=== PATIENT | male | born 1960 | race Caucasian/White ===

== ENCOUNTER 2018-03-26 09:13 | Inpatient (IN) ==
[2018-03-26] MEDS ORDERED: Insulin Regular (For Infusion) 100 UNIT in Sodium Chlor 0.9% Inj 99 ML IV.CONT STA (09:57)
[2018-03-26] MEDS: Sod Chloride 0.9% Inj 1,000 ML IV.SIG SCH ×2 (10:11→12:12)
--- NOTE | 2018-03-26 10:19 | XR ---
EXAM DATE: 03/26/2018 10:12 AM EDT AGE/SEX: 57 years / Male INDICATIONS: Short of breath. CLINICAL DATA: This is the patient's initial encounter. Patient reports that signs and symptoms have been present for 1 day and indicates a pain score of 0/10. MEDICAL/SURGICAL HISTORY: . diabetes, heart attack CABG. stent COMPARISON: No prior exams available for comparison. FINDINGS: A faint subcentimeter nodular density is identified in the left upper lung field overlying the anteri or aspect of the third rib. The lungs are otherwise clear. Median sternotomy wires from prior open heart surgery are noted. Heart and mediastinal contours are o therwise unremarkable. Osseous structures are intact. CONCLUSION: Faint nodular density in the left upper lobe; further evaluation with CT recommended. No evidence of acute cardiopulmonary process. Status post CABG Electronically signed by: Sanjay Posada MD 03/26/2018 10:17 AM EDT
[2018-03-26 10:30] LABS: Baso % (Auto) 0.3 % (0.0-2.0); Hematocrit 38.4 % (39.0-51.0); Hemoglobin 12.6 gm/dL (13.0-17.0); Lymph # (Auto) 1.3 th/mm3 (1.0-4.8); Lymph % (Auto) 7.2 % (9.0-44.0); Mean Corpuscular HGB Conc 32.7 % (32.0-36.0); Mean Corpuscular Hemoglobin 27.9 pg (27.0-34.0); Mean Corpuscular Volume 85.5 fL (80.0-100.0); Mean Platelet Volume 9.2 fL (7.0-11.0); Mono # (Auto) 0.7 th/mm3 (0.0-0.9); Neut # (Auto) 15.9 th/mm3 (1.8-7.7); Neut % (Auto) 88.5 % (16.0-70.0); Platelet Count 393 th/mm3 (150-450); Red Blood Count 4.49 mil/mm3 (4.50-5.90); Red Cell Distribution Width 13.8 % (11.6-17.2); White Blood Count 17.9 th/mm3 (4.0-11.0)
[2018-03-26 10:37] LABS: ABG Base Excess 6.6 mmol/L (-2-2); ABG PCO2 51 mmHg (38-42); ABG PO2 79 mmHg (61-120)
[2018-03-26 10:49] LABS: Alanine Aminotransferase 15 U/L (12-78); Albumin 2.4 g/dL (3.4-5.0); Anion Gap 10 meq/L (5-15); Aspartate Aminotransferase 7 U/L (15-37); Blood Urea Nitrogen 45 mg/dL (7-18); Calcium 9.2 mg/dL (8.5-10.1); Carbon Dioxide 33.9 meq/L (21.0-32.0); Chloride 94 meq/L (98-107); Glomerular Filtration Rate 23 mL/min (>89); Lipase 484 U/L (73-393); Magnesium 2.2 mg/dL (1.5-2.5); Potassium 3.3 meq/L (3.5-5.1); Sodium 138 meq/L (136-145)
[2018-03-26 10:51] LABS: Alkaline Phosphatase 247 U/L (45-117); Total Protein 8.9 g/dL (6.4-8.2)
[2018-03-26 11:01] LABS: Glucose,Random 843 mg/dL (74-106)
--- NOTE | 2018-03-26 11:31 | ECG ---
Date Performed: 03/26/2018 Time Performed: 09:55:39 PTAGE: 57 years EKG: Sinus rhythm WITH SHORT DE INTERVAL MODERATE T-WAVE ABNORMALITY, CONSIDER ANTEROLATERAL ISCHEMIA MODERATE T-WAVE ABNORMALITY, CONSIDER INFERIOR ISCHEMIA ABNORMAL ECG INTERPRETATION BASED ON A DEFAULT AGE OF 40 YEAR S NO PREVIOUS TRACING DOCTOR: Sudheer Honeycutt Interpretating Date/Time 03/26/2018 11:30:45
--- NOTE | 2018-03-26 11:39 | CT ---
EXAM DATE: 03/26/2018 11:30 AM EDT AGE/SEX: 57 years / Male INDICATIONS: Chest pain, weakness for 3 days CLINICAL DATA: This is the patient's initial encounter. Patient reports that signs and symptoms have been present for 3 days and indicates a pain score of 8/10. MEDICAL/SURGICAL HISTORY: Diabetes. Hypertension. CABG. RADIATION DOSE: 5.10 CTDI (mGy) COMPARISON: [facility], CHEST 1V SINGLE AP, 03/26/2018. . TECHNIQUE: Multiple contiguous axial images were obtained through the chest without contrast. Image s were obtained in suspended respiration using multiple row detector helical technique. Using automa hernan exposure control and adjustment of the mA and/or kV according to patient size, radiation dose was kept as low as reasonably achievable to obtain optimal diagnostic quality images. DICOM format imag e data is available electronically for review and comparison. FINDINGS: There is mediastinal adenopathy identified in the AP window measuring up to 2.2 cm, and 1.2 cm in marissa rt axis dimension. 2.1 cm hypodense mass in the tracheoesophageal region on axial image 15 superior m ediastinum. Extensive coronary artery calcification is identified. No pleural or pericardial effusion s are seen. Review of bone windows demonstrate mild paraseptal emphysematous changes. Corresponding t o the plain radiographic findings, there is a spiculated mass in the left upper lobe laterally abutti ng the pleura measuring 2.4 x 1.8 cm in AP transverse dimension. The osseous structures are intact. CONCLUSION: 1. Spiculated left upper lobe mass accounts for the density noted on the recent chest x-ray. This is concerning for primary bronchogenic neoplasm until proven otherwise. Associated mediastinal adenopat hy is identified and concerning for metastatic disease. 2. Emphysema. 3. Extensive atherosclerosis. Electronically signed by: Ammon Decker MD 03/26/2018 11:38 AM EDT
--- NOTE | 2018-03-26 12:03 | P.HPFP ---
History of Present Illness Primary Care Physician: UNKNOWN History of Present Illness: Was not taking medications. Was not taking insulin for 5 days. Ran out of meds. Difficult historia. Weak, lives with sister. Chronic wounds on feet. Changes dressings every other day Home health to change bilater foot wounds. No abx. Just moved here Past medical history: Type 1 since 41 [place], wheel chair bound Past surgical history: Allergies: Medications: Family history: Social history: Code status: [facility] - History History Provided By: Patient, Family Member - Medical History Medical History: Medical History (Last Updated 03/26/18 @ 09:40 by Bridgette Carvalho) Diabetes Guillain Pickard syndrome High cholesterol Hypertension - Surgical History Surgical History: Surgical History (Last Updated 03/26/18 @ 10:05 by Bridgette Carvalho) Hx of CABG - Tobacco History Second Hand Smoke Exposure: Yes Tobacco Use In Past 30 Days: Yes Smoking Status: Current every day smoker Tobacco Type: Cigarettes - Alcohol History How Often Do You Have a Drink Containing Alcohol: Never - Substance Use History Substance History: No History of Abuse - Travel History Recent Travel in the [place] Within the Last 8 Weeks: No Recent Travel Out of the Country Within the Last 8 Weeks: No - Immunization History Tetanus Immunization: <5 Years Medications and Allergies Active Medications: Active Medications Insulin Human Regular 100 unit (/ Sodium Chloride) 100 mls @ 6 mls/hr IV.CONT TITRATE STA; Protocol Stop: 03/27/18 02:36 Last Admin: 03/26/18 10:55 Dose: 6 units/hr, 6 mls/hr Allergies Allergy/AdvReac Type Severity Reaction Status Date / Time No Known Allergies Allergy Verified 03/26/18 10:05 Home Medications Medication Instructions Recorded Confirmed Type insulin lispro [Humalog U-100 20 unit SUB-Q QAM 03/26/18 03/26/18 History Insulin] lisinopril 20 mg PO DAILY 03/26/18 03/26/18 History metoprolol tartrate [Lopressor] 50 mg PO BID 03/26/18 History morphine 4 mg PO DAILY 03/26/18 03/26/18 History Exam Vital signs: Vital Signs 03/26/18 09:18 Temperature 97.9 F Pulse Rate 93 H Respiratory Rate 18 Blood Pressure 101/58 L Pulse Oximetry 96 Intake & Output 03/25/18 03/26/18 03/26/18 18:59 06:59 18:59 Intake Total 1000 / 1000 Balance 1000 / 1000 Weight 63.503 kg Intake: IV 1000 / 1000 NS Inj 1,000 ML @ 1000 mls/hr 1000 / 1000 IV.SIG .Q1H NGOZI Rx#:[id number] Results - Labs Result diagrams: 03/26/18 10:15 03/26/18 10:15 Abnormal lab results 03/26/18 03/26/18 03/26/18 Range/Units 09:44 09:57 10:15 WBC 17.9 H (4.0-11.0) th/mm3 RBC 4.49 L (4.50-5.90) mil/mm3 Hgb 12.6 L (13.0-17.0) gm/dL Hct 38.4 L (39.0-51.0) % Neut % (Auto) 88.5 H (16.0-70.0) % Lymph % (Auto) 7.2 L (9.0-44.0) % Neut # (Auto) 15.9 H (1.8-7.7) th/mm3 ABG pCO2 (38-42) mmHg ABG HCO3 (22-26) mmol/L ABG Base Excess (-2-2) mmol/L Hemoglobin (12.0-16.0) G/DL Potassium (3.5-5.1) meq/L Chloride (98-107) meq/L Carbon Dioxide (21.0-32.0) meq/L BUN (7-18) mg/dL Creatinine (0.60-1.30) mg/dL Estimated GFR (>89) mL/min POC Glucose Greater than 600 H* Greater than 600 H* (68-110) mg/dl Random Glucose (74-106) mg/dL AST (15-37) U/L Alkaline Phosphatase (45-117) U/L Total Protein (6.4-8.2) g/dL Albumin (3.4-5.0) g/dL Lipase (73-393) U/L Beta-Hydroxybutyric Acd (0.00-0.39) mmol/L 03/26/18 03/26/18 Range/Units 10:15 10:32 WBC (4.0-11.0) th/mm3 RBC (4.50-5.90) mil/mm3 Hgb (13.0-17.0) gm/dL Hct (39.0-51.0) % Neut % (Auto) (16.0-70.0) % Lymph % (Auto) (9.0-44.0) % Neut # (Auto) (1.8-7.7) th/mm3 ABG pCO2 51 H* (38-42) mmHg ABG HCO3 31 H (22-26) mmol/L ABG Base Excess 6.6 H (-2-2) mmol/L Hemoglobin 10.7 L (12.0-16.0) G/DL Potassium 3.3 L (3.5-5.1) meq/L Chloride 94 L (98-107) meq/L Carbon Dioxide 33.9 H (21.0-32.0) meq/L BUN 45 H (7-18) mg/dL Creatinine 2.90 H (0.60-1.30) mg/dL Estimated GFR 23 L (>89) mL/min POC Glucose (68-110) mg/dl Random Glucose 843 H* (74-106) mg/dL AST 7 L (15-37) U/L Alkaline Phosphatase 247 H (45-117) U/L Total Protein 8.9 H (6.4-8.2) g/dL Albumin 2.4 L (3.4-5.0) g/dL Lipase 484 H (73-393) U/L Beta-Hydroxybutyric Acd 0.70 H (0.00-0.39) mmol/L Short CBC 03/26/18 Range/Units 10:15 WBC 17.9 H (4.0-11.0) th/mm3 Hgb 12.6 L (13.0-17.0) gm/dL Hct 38.4 L (39.0-51.0) % Plt Count 393 (150-450) th/mm3 BMP 03/26/18 10:15 Sodium 138 Potassium 3.3 L Chloride 94 L Carbon Dioxide 33.9 H BUN 45 H Creatinine 2.90 H Calcium 9.2 Liver Function 03/26/18 Range/Units 10:15 Total Bilirubin 0.3 (0.2-1.0) mg/dL AST 7 L (15-37) U/L ALT 15 (12-78) U/L Alkaline Phosphatase 247 H (45-117) U/L Albumin 2.4 L (3.4-5.0) g/dL - Imaging Impressions Chest X-Ray 03/26/18 09:57 CONCLUSION: Faint nodular density in the left upper lobe; further evaluation with CT recommended. No evidence of acute cardiopulmonary process. Status post CABG Chest CT 03/26/18 10:59 CONCLUSION: 1. Spiculated left upper lobe mass accounts for the density noted on the recent chest x-ray. This is concerning for primary bronchogenic neoplasm until proven otherwise. Associated mediastinal adenopathy is identified and concerning for metastatic disease. 2. Emphysema. 3. Extensive atherosclerosis. Caprini VTE Risk Assessment Caprini Risk Assessment Model: Point Value = 1 Point Value = 2 Point Value = 3 Point Value = 5 Age 41-60 Minor surgery BMI > 25 kg/m2 Swollen legs Varicose veins or History of unexplained or recurrent spontaneous Oral contraceptives or hormone replacement Sepsis (< 1 month) Serious lung disease, including pneumonia (< 1 month) Abnormal pulmonary function Acute myocardial infarction Congestive heart failure (< 1 month) History of inflammatory bowel disease Medical patient at bed rest Age 61-74 Arthroscopic surgery Major open surgery (> 45 min) Laparoscopic surgery (> 45 min) Malignancy Confined to bed (> 72 hours) Immobilizing plaster cast Central venous access Age >= 75 History of VTE Family history of VTE Factor V Leiden Prothrombin 10519L Lupus anticoagulant Anticardiolipin antibodies Elevated serum homocysteine Heparin-induced thrombocytopenia Other congenital or acquired thrombophilia Stroke (< 1 month) Elective arthroplasty Hip, pelvis, or leg fracture Acute spinal cord injury (< 1 month) Prophylaxis Regimen: Total Risk Factor Score Risk Level Prophylaxis Regimen 0-1 Low Early ambulation 2 Moderate Order ONE of the following: *Sequential Compression Device (SCD) *Heparin 5000 units SQ BID 3-4 Higher Order ONE of the following medications: *Heparin 5000 units SQ TID *Enoxaparin/Lovenox 40 mg SQ daily (WT < 150 kg, CrCl > 30 mL/min) *Enoxaparin/Lovenox 30 mg SQ daily (WT < 150 kg, CrCl > 10-29 mL/min) *Enoxaparin/Lovenox 30 mg SQ BID (WT < 150 kg, CrCl > 30 mL/min) AND/OR *Sequential Compression Device (SCD) 5 or more Highest Order ONE of the following medications: *Heparin 5000 units SQ TID (Preferred with Epidurals) *Enoxaparin/Lovenox 40 mg SQ daily (WT < 150 kg, CrCl > 30 mL/min) *Enoxaparin/Lovenox 30 mg SQ daily (WT < 150 kg, CrCl > 10-29 mL/min) *Enoxaparin/Lovenox 30 mg SQ BID (WT < 150 kg, CrCl > 30 mL/min) AND *Sequential Compression Device (SCD)
--- NOTE | 2018-03-26 12:25 | ED ---
HPI General Chief complaint: Neuro Symptoms/Deficit Stated complaint: Med clearance Time Seen by Provider: 03/26/18 09:36 History of Present Illness HPI narrative: 57 male here for evaluation of generalized weakness last 5 days. Patient has insulin-dependent diabetes, has not been compliant with his medication for the last 5 days. Patient has no nausea or vomiting or abdominal pain. Denies any alcohol use, reports smoking 1 pack a day for the last 42 years, he has no fever chills or night sweats. He had DKA year ago due to insulin noncompliance as well. Related Data Home Medications Medication Instructions Recorded Confirmed atorvastatin 20 mg PO HS 03/26/18 03/26/18 lisinopril 10 mg PO DAILY 03/26/18 03/26/18 metoprolol tartrate [Lopressor] 25 mg PO DAILY 03/26/18 03/26/18 morphine 15 mg PO DAILY 03/26/18 03/26/18 Previous Rx's Medication Instructions Recorded insulin NPH isoph U-100 human 15 units SUB-Q BID@0800,1700 30 03/29/18 [Novolin N NPH U-100 Insulin] Days ml Allergies Allergy/AdvReac Type Severity Reaction Status Date / Time sodium bicarbonate AdvReac Vomiting Verified 03/26/18 13:39 Review of Systems ROS: all other systems reviewed are negative [facility] Family History Family History Other Osteoarthritis Social History Social History Substance History: No History of Abuse Second Hand Smoke Exposure: Yes Smoking Status: Current every day smoker Tobacco Type: Cigarettes How Often Do You Have a Drink Containing Alcohol: Never Immunization History Tetanus Immunization: <5 Years Exam Narrative Exam Narrative: GENERAL: Alert oriented 3 no acute distress. SKIN: Focused skin assessment warm/dry. HEAD: Atraumatic. Normocephalic. EYES: Pupils equal and round. No scleral icterus. No injection or drainage. ENT: No nasal bleeding or discharge. Mucous membranes pink and moist. NECK: Trachea midline. No JVD. CARDIOVASCULAR: Regular rate and rhythm. No murmur appreciated. RESPIRATORY: No accessory muscle use. Clear to auscultation. Breath sounds equal bilaterally. GASTROINTESTINAL: Abdomen soft, non-tender, nondistended. Hepatic and splenic margins not palpable. MUSCULOSKELETAL: No obvious deformities. No clubbing. No cyanosis. No edema. NEUROLOGICAL: Awake and alert. No obvious cranial nerve deficits. Motor grossly within normal limits. Normal speech. PSYCHIATRIC: Appropriate mood and affect; insight and judgment normal. Course Initial Documented Vital Signs Temperature 97.9 F 03/26/18 09:18 Pulse Rate 93 H 03/26/18 09:18 Respiratory Rate 18 03/26/18 09:18 Blood Pressure 101/58 L 03/26/18 09:18 Pulse Oximetry 96 03/26/18 09:18 Last Documented Vital Signs Temperature 98.4 F 03/29/18 16:00 Pulse Rate 87 03/29/18 16:00 Respiratory Rate 20 03/29/18 16:00 Blood Pressure 109/54 L 03/29/18 16:00 Pulse Oximetry 99 03/29/18 16:00 Critical Care Time Critical Care Time: Yes Total Critical Care Time: 35 Attestation: DKA versus HHS, metabolic alkalosis with respiratory acidosis, aggressive IV hydration with insulin drip. Medical Decision Making MDM Narrative Medical decision making narrative: 57 male here for evaluation of generalized weakness. He has hyperglycemia, metabolic alkalosis, respiratory acidosis. He has history of Guillain [place], he could be having restrictive respiratory acidosis is compensated with metabolic alkalosis, patient was started with IV hydration and insulin drip will be admitted to ICU for further evaluation. He has a CT chest that shows lung nodule questionable bronchogenic carcinoma. Medical Screen Exam Complete: Yes Emergency Medical Condition: Yes Lab Data Result diagrams: 03/29/18 06:46 03/29/18 06:46 Lab Results 03/26/18 03/26/18 03/26/18 Range/Units 09:44 09:57 10:15 WBC 17.9 H (4.0-11.0) th/mm3 RBC 4.49 L (4.50-5.90) mil/mm3 Hgb 12.6 L (13.0-17.0) gm/dL Hct 38.4 L (39.0-51.0) % MCV 85.5 (80.0-100.0) fL MCH 27.9 (27.0-34.0) pg MCHC 32.7 (32.0-36.0) % RDW 13.8 (11.6-17.2) % Plt Count 393 (150-450) th/mm3 MPV 9.2 (7.0-11.0) fL Neut % (Auto) 88.5 H (16.0-70.0) % Lymph % (Auto) 7.2 L (9.0-44.0) % [place] % (Auto) 4.0 (0.0-8.0) % Eos % (Auto) 0.0 (0.0-4.0) % Baso % (Auto) 0.3 (0.0-2.0) % Neut # (Auto) 15.9 H (1.8-7.7) th/mm3 Lymph # (Auto) 1.3 (1.0-4.8) th/mm3 [place] # (Auto) 0.7 (0.0-0.9) th/mm3 Eos # (Auto) 0.0 (0.0-0.4) th/mm3 Baso # (Auto) 0.0 (0.0-0.2) th/mm3 WBC Differential . Differential Comment Auto diff final PT (9.8-11.6) sec INR Ratio APTT (24.3-30.1) sec Puncture Site Patient Temperature O2 Saturation (90-100) % ABG pH (7.380-7.420) ABG pCO2 (38-42) mmHg ABG pO2 (61-120) mmHg ABG HCO3 (22-26) mmol/L ABG O2 Content (12.0-20.0) Vol % ABG Base Excess (-2-2) mmol/L ABG Methemoglobin (0-2) % Hosea Test Hemoglobin (12.0-16.0) G/DL Carboxyhemoglobin (0-4) % O2 Delivery Device Inspired O2 % Critical Value Sodium (136-145) meq/L Potassium (3.5-5.1) meq/L Chloride (98-107) meq/L Carbon Dioxide (21.0-32.0) meq/L Anion Gap (5-15) meq/L BUN (7-18) mg/dL Creatinine (0.60-1.30) mg/dL Estimated GFR (>89) mL/min POC Glucose Greater than 600 H* Greater than 600 H* (68-110) mg/dl Random Glucose (74-106) mg/dL Hemoglobin A1c (4.3-6.0) % Calcium (8.5-10.1) mg/dL Prot Corrected Calcium (8.5-10.1) mg/dL Magnesium (1.5-2.5) mg/dL Total Bilirubin (0.2-1.0) mg/dL AST (15-37) U/L ALT (12-78) U/L Alkaline Phosphatase (45-117) U/L Troponin I (0.02-0.05) ng/mL Total Protein (6.4-8.2) g/dL Albumin (3.4-5.0) g/dL Lipase (73-393) U/L Beta-Hydroxybutyric Acd (0.00-0.39) mmol/L Urine Color (Yellw/Straw) Urine Clarity (Clear) Urine pH (5.0-8.5) Ur Specific [place] (1.002-1.035) Urine Protein (Neg-Trace) mg/dL Urine Glucose (UA) (Negative) mg/dL Urine Ketones (Negative) mg/dL Urine Occult Blood (Negative) Urine Nitrate (Negative) Urine Bilirubin (Negative) Urine Urobilinogen (Less than 2) mg/dL Ur Leukocyte Esterase (Negative) Urine RBC (0-3) /hpf Urine WBC (0-5) /hpf Urine WBC Clumps (None) Ur Squamous Epith Cells (0-5) /hpf Urine Bacteria (None) /hpf Urine Yeast (None) /hpf Micro UA Comment Ur Microscopic Review Urine Culture Comments Nasal Screen MRSA (PCR) (Negative) 03/26/18 03/26/18 03/26/18 Range/Units 10:15 10:15 10:32 WBC (4.0-11.0) th/mm3 RBC (4.50-5.90) mil/mm3 Hgb (13.0-17.0) gm/dL Hct (39.0-51.0) % MCV (80.0-100.0) fL MCH (27.0-34.0) pg MCHC (32.0-36.0) % RDW (11.6-17.2) % Plt Count (150-450) th/mm3 MPV (7.0-11.0) fL Neut % (Auto) (16.0-70.0) % Lymph % (Auto) (9.0-44.0) % [place] % (Auto) (0.0-8.0) % Eos % (Auto) (0.0-4.0) % Baso % (Auto) (0.0-2.0) % Neut # (Auto) (1.8-7.7) th/mm3 Lymph # (Auto) (1.0-4.8) th/mm3 [place] # (Auto) (0.0-0.9) th/mm3 Eos # (Auto) (0.0-0.4) th/mm3 Baso # (Auto) (0.0-0.2) th/mm3 WBC Differential Differential Comment PT (9.8-11.6) sec INR Ratio APTT (24.3-30.1) sec Puncture Site Left brachial Patient Temperature 98.6 O2 Saturation 92 (90-100) % ABG pH 7.41 (7.380-7.420) ABG pCO2 51 H* (38-42) mmHg ABG pO2 79 (61-120) mmHg ABG HCO3 31 H (22-26) mmol/L ABG O2 Content 14.0 (12.0-20.0) Vol % ABG Base Excess 6.6 H (-2-2) mmol/L ABG Methemoglobin 1.3 (0-2) % Hosea Test Y Hemoglobin 10.7 L (12.0-16.0) G/DL Carboxyhemoglobin 2.0 (0-4) % O2 Delivery Device Room air Inspired O2 21 % Critical Value Yes Sodium 138 (136-145) meq/L Potassium 3.3 L (3.5-5.1) meq/L Chloride 94 L (98-107) meq/L Carbon Dioxide 33.9 H (21.0-32.0) meq/L Anion Gap 10 (5-15) meq/L BUN 45 H (7-18) mg/dL Creatinine 2.90 H (0.60-1.30) mg/dL Estimated GFR 23 L (>89) mL/min POC Glucose (68-110) mg/dl Random Glucose 843 H* (74-106) mg/dL Hemoglobin A1c 12.2 H (4.3-6.0) % Calcium 9.2 (8.5-10.1) mg/dL Prot Corrected Calcium (8.5-10.1) mg/dL Magnesium 2.2 (1.5-2.5) mg/dL Total Bilirubin 0.3 (0.2-1.0) mg/dL AST 7 L (15-37) U/L ALT 15 (12-78) U/L Alkaline Phosphatase 247 H (45-117) U/L Troponin I (0.02-0.05) ng/mL Total Protein 8.9 H (6.4-8.2) g/dL Albumin 2.4 L (3.4-5.0) g/dL Lipase 484 H (73-393) U/L Beta-Hydroxybutyric Acd 0.70 H (0.00-0.39) mmol/L Urine Color (Yellw/Straw) Urine Clarity (Clear) Urine pH (5.0-8.5) Ur Specific [place] (1.002-1.035) Urine Protein (Neg-Trace) mg/dL Urine Glucose (UA) (Negative) mg/dL Urine Ketones (Negative) mg/dL Urine Occult Blood (Negative) Urine Nitrate (Negative) Urine Bilirubin (Negative) Urine Urobilinogen (Less than 2) mg/dL Ur Leukocyte Esterase (Negative) Urine RBC (0-3) /hpf Urine WBC (0-5) /hpf Urine WBC Clumps (None) Ur Squamous Epith Cells (0-5) /hpf Urine Bacteria (None) /hpf Urine Yeast (None) /hpf Micro UA Comment Ur Microscopic Review Urine Culture Comments Nasal Screen MRSA (PCR) (Negative) 03/26/18 03/26/18 03/26/18 Range/Units 10:50 12:08 13:49 WBC (4.0-11.0) th/mm3 RBC (4.50-5.90) mil/mm3 Hgb (13.0-17.0) gm/dL Hct (39.0-51.0) % MCV (80.0-100.0) fL MCH (27.0-34.0) pg MCHC (32.0-36.0) % RDW (11.6-17.2) % Plt Count (150-450) th/mm3 MPV (7.0-11.0) fL Neut % (Auto) (16.0-70.0) % Lymph % (Auto) (9.0-44.0) % [place] % (Auto) (0.0-8.0) % Eos % (Auto) (0.0-4.0) % Baso % (Auto) (0.0-2.0) % Neut # (Auto) (1.8-7.7) th/mm3 Lymph # (Auto) (1.0-4.8) th/mm3 [place] # (Auto) (0.0-0.9) th/mm3 Eos # (Auto) (0.0-0.4) th/mm3 Baso # (Auto) (0.0-0.2) th/mm3 WBC Differential Differential Comment PT (9.8-11.6) sec INR Ratio APTT (24.3-30.1) sec Puncture Site Patient Temperature O2 Saturation (90-100) % ABG pH (7.380-7.420) ABG pCO2 (38-42) mmHg ABG pO2 (61-120) mmHg ABG HCO3 (22-26) mmol/L ABG O2 Content (12.0-20.0) Vol % ABG Base Excess (-2-2) mmol/L ABG Methemoglobin (0-2) % [place]a Test Hemoglobin (12.0-16.0) G/DL Carboxyhemoglobin (0-4) % O2 Delivery Device Inspired O2 % Critical Value Sodium 148 H D (136-145) meq/L Potassium 2.6 L* (3.5-5.1) meq/L Chloride 105 D (98-107) meq/L Carbon Dioxide 36.5 H (21.0-32.0) meq/L Anion Gap 7 (5-15) meq/L BUN 42 H (7-18) mg/dL Creatinine 2.63 H (0.60-1.30) mg/dL Estimated GFR 25 L (>89) mL/min POC Glucose Greater than 600 H* (68-110) mg/dl Random Glucose 440 H D (74-106) mg/dL Hemoglobin A1c (4.3-6.0) % Calcium 9.0 (8.5-10.1) mg/dL Prot Corrected Calcium (8.5-10.1) mg/dL Magnesium (1.5-2.5) mg/dL Total Bilirubin (0.2-1.0) mg/dL AST (15-37) U/L ALT (12-78) U/L Alkaline Phosphatase (45-117) U/L Troponin I Less than 0.02 L (0.02-0.05) ng/mL Total Protein (6.4-8.2) g/dL Albumin (3.4-5.0) g/dL Lipase (73-393) U/L Beta-Hydroxybutyric Acd (0.00-0.39) mmol/L Urine Color Yellow (Yellw/Straw) Urine Clarity Cloudy H (Clear) Urine pH 5.0 (5.0-8.5) Ur Specific [place] 1.021 (1.002-1.035) Urine Protein 100 H (Neg-Trace) mg/dL Urine Glucose (UA) 500 or greater (Negative) mg/dL Urine Ketones Negative (Negative) mg/dL Urine Occult Blood Moderate H (Negative) Urine Nitrate Negative (Negative) Urine Bilirubin Negative (Negative) Urine Urobilinogen Less than 2 (Less than 2) mg/dL Ur Leukocyte Esterase Large H (Negative) Urine RBC 9 H (0-3) /hpf Urine WBC (0-5) /hpf Urine WBC Clumps Many H (None) Ur Squamous Epith Cells 1 (0-5) /hpf Urine Bacteria Many H (None) /hpf Urine Yeast Few H (None) /hpf Micro UA Comment Culture indicated Ur Microscopic Review Not Reportable Urine Culture Comments Culture indicated Nasal Screen MRSA (PCR) (Negative) 03/26/18 03/26/18 03/26/18 Range/Units 16:25 18:30 18:39 WBC (4.0-11.0) th/mm3 RBC (4.50-5.90) mil/mm3 Hgb (13.0-17.0) gm/dL Hct (39.0-51.0) % MCV (80.0-100.0) fL MCH (27.0-34.0) pg MCHC (32.0-36.0) % RDW (11.6-17.2) % Plt Count (150-450) th/mm3 MPV (7.0-11.0) fL Neut % (Auto) (16.0-70.0) % Lymph % (Auto) (9.0-44.0) % [place] % (Auto) (0.0-8.0) % Eos % (Auto) (0.0-4.0) % Baso % (Auto) (0.0-2.0) % Neut # (Auto) (1.8-7.7) th/mm3 Lymph # (Auto) (1.0-4.8) th/mm3 [place] # (Auto) (0.0-0.9) th/mm3 Eos # (Auto) (0.0-0.4) th/mm3 Baso # (Auto) (0.0-0.2) th/mm3 WBC Differential Differential Comment PT (9.8-11.6) sec INR Ratio APTT (24.3-30.1) sec Puncture Site Patient Temperature O2 Saturation (90-100) % ABG pH (7.380-7.420) ABG pCO2 (38-42) mmHg ABG pO2 (61-120) mmHg ABG HCO3 (22-26) mmol/L ABG O2 Content (12.0-20.0) Vol % ABG Base Excess (-2-2) mmol/L ABG Methemoglobin (0-2) % [place]a Test Hemoglobin (12.0-16.0) G/DL Carboxyhemoglobin (0-4) % O2 Delivery Device Inspired O2 % Critical Value Sodium (136-145) meq/L Potassium (3.5-5.1) meq/L Chloride (98-107) meq/L Carbon Dioxide (21.0-32.0) meq/L Anion Gap (5-15) meq/L BUN (7-18) mg/dL Creatinine (0.60-1.30) mg/dL Estimated GFR (>89) mL/min POC Glucose 309 H 62 L (68-110) mg/dl Random Glucose (74-106) mg/dL Hemoglobin A1c (4.3-6.0) % Calcium (8.5-10.1) mg/dL Prot Corrected Calcium (8.5-10.1) mg/dL Magnesium (1.5-2.5) mg/dL Total Bilirubin (0.2-1.0) mg/dL AST (15-37) U/L ALT (12-78) U/L Alkaline Phosphatase (45-117) U/L Troponin I (0.02-0.05) ng/mL Total Protein (6.4-8.2) g/dL Albumin (3.4-5.0) g/dL Lipase (73-393) U/L Beta-Hydroxybutyric Acd (0.00-0.39) mmol/L Urine Color (Yellw/Straw) Urine Clarity (Clear) Urine pH (5.0-8.5) Ur Specific [place] (1.002-1.035) Urine Protein (Neg-Trace) mg/dL Urine Glucose (UA) (Negative) mg/dL Urine Ketones (Negative) mg/dL Urine Occult Blood (Negative) Urine Nitrate (Negative) Urine Bilirubin (Negative) Urine Urobilinogen (Less than 2) mg/dL Ur Leukocyte Esterase (Negative) Urine RBC (0-3) /hpf Urine WBC (0-5) /hpf Urine WBC Clumps (None) Ur Squamous Epith Cells (0-5) /hpf Urine Bacteria (None) /hpf Urine Yeast (None) /hpf Micro UA Comment Ur Microscopic Review Urine Culture Comments Nasal Screen MRSA (PCR) Mrsa detected (Negative) 03/26/18 03/26/18 03/26/18 Range/Units 18:52 19:31 20:31 WBC (4.0-11.0) th/mm3 RBC (4.50-5.90) mil/mm3 Hgb (13.0-17.0) gm/dL Hct (39.0-51.0) % MCV (80.0-100.0) fL MCH (27.0-34.0) pg MCHC (32.0-36.0) % RDW (11.6-17.2) % Plt Count (150-450) th/mm3 MPV (7.0-11.0) fL Neut % (Auto) (16.0-70.0) % Lymph % (Auto) (9.0-44.0) % [place] % (Auto) (0.0-8.0) % Eos % (Auto) (0.0-4.0) % Baso % (Auto) (0.0-2.0) % Neut # (Auto) (1.8-7.7) th/mm3 Lymph # (Auto) (1.0-4.8) th/mm3 [place] # (Auto) (0.0-0.9) th/mm3 Eos # (Auto) (0.0-0.4) th/mm3 Baso # (Auto) (0.0-0.2) th/mm3 WBC Differential Differential Comment PT (9.8-11.6) sec INR Ratio APTT (24.3-30.1) sec Puncture Site Patient Temperature O2 Saturation (90-100) % ABG pH (7.380-7.420) ABG pCO2 (38-42) mmHg ABG pO2 (61-120) mmHg ABG HCO3 (22-26) mmol/L ABG O2 Content (12.0-20.0) Vol % ABG Base Excess (-2-2) mmol/L ABG Methemoglobin (0-2) % H[place]a Test Hemoglobin (12.0-16.0) G/DL Carboxyhemoglobin (0-4) % O2 Delivery Device Inspired O2 % Critical Value Sodium (136-145) meq/L Potassium (3.5-5.1) meq/L Chloride (98-107) meq/L Carbon Dioxide (21.0-32.0) meq/L Anion Gap (5-15) meq/L BUN (7-18) mg/dL Creatinine (0.60-1.30) mg/dL Estimated GFR (>89) mL/min POC Glucose 215 H 256 H 251 H (68-110) mg/dl Random Glucose (74-106) mg/dL Hemoglobin A1c (4.3-6.0) % Calcium (8.5-10.1) mg/dL Prot Corrected Calcium (8.5-10.1) mg/dL Magnesium (1.5-2.5) mg/dL Total Bilirubin (0.2-1.0) mg/dL AST (15-37) U/L ALT (12-78) U/L Alkaline Phosphatase (45-117) U/L Troponin I (0.02-0.05) ng/mL Total Protein (6.4-8.2) g/dL Albumin (3.4-5.0) g/dL Lipase (73-393) U/L Beta-Hydroxybutyric Acd (0.00-0.39) mmol/L Urine Color (Yellw/Straw) Urine Clarity (Clear) Urine pH (5.0-8.5) Ur Specific [place] (1.002-1.035) Urine Protein (Neg-Trace) mg/dL Urine Glucose (UA) (Negative) mg/dL Urine Ketones (Negative) mg/dL Urine Occult Blood (Negative) Urine Nitrate (Negative) Urine Bilirubin (Negative) Urine Urobilinogen (Less than 2) mg/dL Ur Leukocyte Esterase (Negative) Urine RBC (0-3) /hpf Urine WBC (0-5) /hpf Urine WBC Clumps (None) Ur Squamous Epith Cells (0-5) /hpf Urine Bacteria (None) /hpf Urine Yeast (None) /hpf Micro UA Comment Ur Microscopic Review Urine Culture Comments Nasal Screen MRSA (PCR) (Negative) 03/26/18 03/26/18 03/26/18 Range/Units 21:26 21:29 23:41 WBC (4.0-11.0) th/mm3 RBC (4.50-5.90) mil/mm3 Hgb (13.0-17.0) gm/dL Hct (39.0-51.0) % MCV (80.0-100.0) fL MCH (27.0-34.0) pg MCHC (32.0-36.0) % RDW (11.6-17.2) % Plt Count (150-450) th/mm3 MPV (7.0-11.0) fL Neut % (Auto) (16.0-70.0) % Lymph % (Auto) (9.0-44.0) % [place] % (Auto) (0.0-8.0) % Eos % (Auto) (0.0-4.0) % Baso % (Auto) (0.0-2.0) % Neut # (Auto) (1.8-7.7) th/mm3 Lymph # (Auto) (1.0-4.8) th/mm3 [place] # (Auto) (0.0-0.9) th/mm3 Eos # (Auto) (0.0-0.4) th/mm3 Baso # (Auto) (0.0-0.2) th/mm3 WBC Differential Differential Comment PT (9.8-11.6) sec INR Ratio APTT (24.3-30.1) sec Puncture Site Patient Temperature O2 Saturation (90-100) % ABG pH (7.380-7.420) ABG pCO2 (38-42) mmHg ABG pO2 (61-120) mmHg ABG HCO3 (22-26) mmol/L ABG O2 Content (12.0-20.0) Vol % ABG Base Excess (-2-2) mmol/L ABG Methemoglobin (0-2) % [place]a Test Hemoglobin (12.0-16.0) G/DL Carboxyhemoglobin (0-4) % O2 Delivery Device Inspired O2 % Critical Value Sodium 151 H (136-145) meq/L Potassium 3.2 L (3.5-5.1) meq/L Chloride 112 H (98-107) meq/L Carbon Dioxide 29.2 (21.0-32.0) meq/L Anion Gap 10 (5-15) meq/L BUN 36 H (7-18) mg/dL Creatinine 1.97 H (0.60-1.30) mg/dL Estimated GFR 35 L (>89) mL/min POC Glucose 311 H 249 H (68-110) mg/dl Random Glucose 221 H D (74-106) mg/dL Hemoglobin A1c (4.3-6.0) % Calcium 8.5 (8.5-10.1) mg/dL Prot Corrected Calcium (8.5-10.1) mg/dL Magnesium (1.5-2.5) mg/dL Total Bilirubin (0.2-1.0) mg/dL AST (15-37) U/L ALT (12-78) U/L Alkaline Phosphatase (45-117) U/L Troponin I Less than 0.02 L (0.02-0.05) ng/mL Total Protein (6.4-8.2) g/dL Albumin (3.4-5.0) g/dL Lipase (73-393) U/L Beta-Hydroxybutyric Acd (0.00-0.39) mmol/L Urine Color (Yellw/Straw) Urine Clarity (Clear) Urine pH (5.0-8.5) Ur Specific [place] (1.002-1.035) Urine Protein (Neg-Trace) mg/dL Urine Glucose (UA) (Negative) mg/dL Urine Ketones (Negative) mg/dL Urine Occult Blood (Negative) Urine Nitrate (Negative) Urine Bilirubin (Negative) Urine Urobilinogen (Less than 2) mg/dL Ur Leukocyte Esterase (Negative) Urine RBC (0-3) /hpf Urine WBC (0-5) /hpf Urine WBC Clumps (None) Ur Squamous Epith Cells (0-5) /hpf Urine Bacteria (None) /hpf Urine Yeast (None) /hpf Micro UA Comment Ur Microscopic Review Urine Culture Comments Nasal Screen MRSA (PCR) (Negative) 03/27/18 03/27/18 03/27/18 Range/Units 00:35 02:10 03:05 WBC (4.0-11.0) th/mm3 RBC (4.50-5.90) mil/mm3 Hgb (13.0-17.0) gm/dL Hct (39.0-51.0) % MCV (80.0-100.0) fL MCH (27.0-34.0) pg MCHC (32.0-36.0) % RDW (11.6-17.2) % Plt Count (150-450) th/mm3 MPV (7.0-11.0) fL Neut % (Auto) (16.0-70.0) % Lymph % (Auto) (9.0-44.0) % [place] % (Auto) (0.0-8.0) % Eos % (Auto) (0.0-4.0) % Baso % (Auto) (0.0-2.0) % Neut # (Auto) (1.8-7.7) th/mm3 Lymph # (Auto) (1.0-4.8) th/mm3 [place] # (Auto) (0.0-0.9) th/mm3 Eos # (Auto) (0.0-0.4) th/mm3 Baso # (Auto) (0.0-0.2) th/mm3 WBC Differential Differential Comment PT (9.8-11.6) sec INR Ratio APTT (24.3-30.1) sec Puncture Site Patient Temperature O2 Saturation (90-100) % ABG pH (7.380-7.420) ABG pCO2 (38-42) mmHg ABG pO2 (61-120) mmHg ABG HCO3 (22-26) mmol/L ABG O2 Content (12.0-20.0) Vol % ABG Base Excess (-2-2) mmol/L ABG Methemoglobin (0-2) % Hosea Test Hemoglobin (12.0-16.0) G/DL Carboxyhemoglobin (0-4) % O2 Delivery Device Inspired O2 % Critical Value Sodium 152 H 151 H (136-145) meq/L Potassium 3.3 L 2.7 L* (3.5-5.1) meq/L Chloride 114 H 110 H (98-107) meq/L Carbon Dioxide 27.6 32.8 H (21.0-32.0) meq/L Anion Gap 10 8 (5-15) meq/L BUN 33 H 30 H (7-18) mg/dL Creatinine 1.70 H 1.67 H (0.60-1.30) mg/dL Estimated GFR 42 L 43 L (>89) mL/min POC Glucose 186 H (68-110) mg/dl Random Glucose 166 H 79 (74-106) mg/dL Hemoglobin A1c (4.3-6.0) % Calcium 8.5 8.3 L (8.5-10.1) mg/dL Prot Corrected Calcium (8.5-10.1) mg/dL Magnesium (1.5-2.5) mg/dL Total Bilirubin 0.2 (0.2-1.0) mg/dL AST 16 (15-37) U/L ALT 13 (12-78) U/L Alkaline Phosphatase 193 H (45-117) U/L Troponin I (0.02-0.05) ng/mL Total Protein 7.8 D (6.4-8.2) g/dL Albumin 2.0 L (3.4-5.0) g/dL Lipase (73-393) U/L Beta-Hydroxybutyric Acd 0.06 D 0.13 (0.00-0.39) mmol/L Urine Color (Yellw/Straw) Urine Clarity (Clear) Urine pH (5.0-8.5) Ur Specific [place] (1.002-1.035) Urine Protein (Neg-Trace) mg/dL Urine Glucose (UA) (Negative) mg/dL Urine Ketones (Negative) mg/dL Urine Occult Blood (Negative) Urine Nitrate (Negative) Urine Bilirubin (Negative) Urine Urobilinogen (Less than 2) mg/dL Ur Leukocyte Esterase (Negative) Urine RBC (0-3) /hpf Urine WBC (0-5) /hpf Urine WBC Clumps (None) Ur Squamous Epith Cells (0-5) /hpf Urine Bacteria (None) /hpf Urine Yeast (None) /hpf Micro UA Comment Ur Microscopic Review Urine Culture Comments Nasal Screen MRSA (PCR) (Negative) 03/27/18 03/27/18 03/27/18 Range/Units 03:05 05:12 08:56 WBC 16.5 H (4.0-11.0) th/mm3 RBC 4.65 (4.50-5.90) mil/mm3 Hgb 13.0 (13.0-17.0) gm/dL Hct 38.6 L (39.0-51.0) % MCV 83.0 (80.0-100.0) fL MCH 28.0 (27.0-34.0) pg MCHC 33.8 (32.0-36.0) % RDW 13.8 (11.6-17.2) % Plt Count 395 (150-450) th/mm3 MPV 8.6 (7.0-11.0) fL Neut % (Auto) 79.9 H (16.0-70.0) % Lymph % (Auto) 15.0 (9.0-44.0) % [place] % (Auto) 4.3 (0.0-8.0) % Eos % (Auto) 0.4 (0.0-4.0) % Baso % (Auto) 0.4 (0.0-2.0) % Neut # (Auto) 13.2 H (1.8-7.7) th/mm3 Lymph # (Auto) 2.5 (1.0-4.8) th/mm3 [place] # (Auto) 0.7 (0.0-0.9) th/mm3 Eos # (Auto) 0.1 (0.0-0.4) th/mm3 Baso # (Auto) 0.1 (0.0-0.2) th/mm3 WBC Differential . Differential Comment Auto diff final PT (9.8-11.6) sec INR Ratio APTT (24.3-30.1) sec Puncture Site Patient Temperature O2 Saturation (90-100) % ABG pH (7.380-7.420) ABG pCO2 (38-42) mmHg ABG pO2 (61-120) mmHg ABG HCO3 (22-26) mmol/L ABG O2 Content (12.0-20.0) Vol % ABG Base Excess (-2-2) mmol/L ABG Methemoglobin (0-2) % [place] Test Hemoglobin (12.0-16.0) G/DL Carboxyhemoglobin (0-4) % O2 Delivery Device Inspired O2 % Critical Value Sodium (136-145) meq/L Potassium (3.5-5.1) meq/L Chloride (98-107) meq/L Carbon Dioxide (21.0-32.0) meq/L Anion Gap (5-15) meq/L BUN (7-18) mg/dL Creatinine (0.60-1.30) mg/dL Estimated GFR (>89) mL/min POC Glucose 191 H 200 H (68-110) mg/dl Random Glucose (74-106) mg/dL Hemoglobin A1c (4.3-6.0) % Calcium (8.5-10.1) mg/dL Prot Corrected Calcium (8.5-10.1) mg/dL Magnesium (1.5-2.5) mg/dL Total Bilirubin (0.2-1.0) mg/dL AST (15-37) U/L ALT (12-78) U/L Alkaline Phosphatase (45-117) U/L Troponin I (0.02-0.05) ng/mL Total Protein (6.4-8.2) g/dL Albumin (3.4-5.0) g/dL Lipase (73-393) U/L Beta-Hydroxybutyric Acd (0.00-0.39) mmol/L Urine Color (Yellw/Straw) Urine Clarity (Clear) Urine pH (5.0-8.5) Ur Specific [place] (1.002-1.035) Urine Protein (Neg-Trace) mg/dL Urine Glucose (UA) (Negative) mg/dL Urine Ketones (Negative) mg/dL Urine Occult Blood (Negative) Urine Nitrate (Negative) Urine Bilirubin (Negative) Urine Urobilinogen (Less than 2) mg/dL Ur Leukocyte Esterase (Negative) Urine RBC (0-3) /hpf Urine WBC (0-5) /hpf Urine WBC Clumps (None) Ur Squamous Epith Cells (0-5) /hpf Urine Bacteria (None) /hpf Urine Yeast (None) /hpf Micro UA Comment Ur Microscopic Review Urine Culture Comments Nasal Screen MRSA (PCR) (Negative) 03/27/18 03/27/18 03/27/18 Range/Units 11:18 11:55 16:21 WBC (4.0-11.0) th/mm3 RBC (4.50-5.90) mil/mm3 Hgb (13.0-17.0) gm/dL Hct (39.0-51.0) % MCV (80.0-100.0) fL MCH (27.0-34.0) pg MCHC (32.0-36.0) % RDW (11.6-17.2) % Plt Count (150-450) th/mm3 MPV (7.0-11.0) fL Neut % (Auto) (16.0-70.0) % Lymph % (Auto) (9.0-44.0) % [place] % (Auto) (0.0-8.0) % Eos % (Auto) (0.0-4.0) % Baso % (Auto) (0.0-2.0) % Neut # (Auto) (1.8-7.7) th/mm3 Lymph # (Auto) (1.0-4.8) th/mm3 [place] # (Auto) (0.0-0.9) th/mm3 Eos # (Auto) (0.0-0.4) th/mm3 Baso # (Auto) (0.0-0.2) th/mm3 WBC Differential Differential Comment PT (9.8-11.6) sec INR Ratio APTT (24.3-30.1) sec Puncture Site Patient Temperature O2 Saturation (90-100) % ABG pH (7.380-7.420) ABG pCO2 (38-42) mmHg ABG pO2 (61-120) mmHg ABG HCO3 (22-26) mmol/L ABG O2 Content (12.0-20.0) Vol % ABG Base Excess (-2-2) mmol/L ABG Methemoglobin (0-2) % [place] Test Hemoglobin (12.0-16.0) G/DL Carboxyhemoglobin (0-4) % O2 Delivery Device Inspired O2 % Critical Value Sodium (136-145) meq/L Potassium 3.7 D (3.5-5.1) meq/L Chloride (98-107) meq/L Carbon Dioxide (21.0-32.0) meq/L Anion Gap (5-15) meq/L BUN (7-18) mg/dL Creatinine (0.60-1.30) mg/dL Estimated GFR (>89) mL/min POC Glucose 365 H 292 H (68-110) mg/dl Random Glucose (74-106) mg/dL Hemoglobin A1c (4.3-6.0) % Calcium (8.5-10.1) mg/dL Prot Corrected Calcium (8.5-10.1) mg/dL Magnesium (1.5-2.5) mg/dL Total Bilirubin (0.2-1.0) mg/dL AST (15-37) U/L ALT (12-78) U/L Alkaline Phosphatase (45-117) U/L Troponin I (0.02-0.05) ng/mL Total Protein (6.4-8.2) g/dL Albumin (3.4-5.0) g/dL Lipase (73-393) U/L Beta-Hydroxybutyric Acd (0.00-0.39) mmol/L Urine Color (Yellw/Straw) Urine Clarity (Clear) Urine pH (5.0-8.5) Ur Specific [place] (1.002-1.035) Urine Protein (Neg-Trace) mg/dL Urine Glucose (UA) (Negative) mg/dL Urine Ketones (Negative) mg/dL Urine Occult Blood (Negative) Urine Nitrate (Negative) Urine Bilirubin (Negative) Urine Urobilinogen (Less than 2) mg/dL Ur Leukocyte Esterase (Negative) Urine RBC (0-3) /hpf Urine WBC (0-5) /hpf Urine WBC Clumps (None) Ur Squamous Epith Cells (0-5) /hpf Urine Bacteria (None) /hpf Urine Yeast (None) /hpf Micro UA Comment Ur Microscopic Review Urine Culture Comments Nasal Screen MRSA (PCR) (Negative) 03/27/18 03/28/18 03/28/18 Range/Units 21:33 07:20 08:25 WBC 11.8 H (4.0-11.0) th/mm3 RBC 4.36 L (4.50-5.90) mil/mm3 Hgb 12.2 L (13.0-17.0) gm/dL Hct 35.8 L (39.0-51.0) % MCV 82.1 (80.0-100.0) fL MCH 28.0 (27.0-34.0) pg MCHC 34.1 (32.0-36.0) % RDW 13.7 (11.6-17.2) % Plt Count 367 (150-450) th/mm3 MPV 8.4 (7.0-11.0) fL Neut % (Auto) 71.8 H (16.0-70.0) % Lymph % (Auto) 19.1 (9.0-44.0) % [place] % (Auto) 4.9 (0.0-8.0) % Eos % (Auto) 3.4 (0.0-4.0) % Baso % (Auto) 0.8 (0.0-2.0) % Neut # (Auto) 8.5 H (1.8-7.7) th/mm3 Lymph # (Auto) 2.2 (1.0-4.8) th/mm3 [place] # (Auto) 0.6 (0.0-0.9) th/mm3 Eos # (Auto) 0.4 (0.0-0.4) th/mm3 Baso # (Auto) 0.1 (0.0-0.2) th/mm3 WBC Differential . Differential Comment Auto diff final PT (9.8-11.6) sec INR Ratio APTT (24.3-30.1) sec Puncture Site Patient Temperature O2 Saturation (90-100) % ABG pH (7.380-7.420) ABG pCO2 (38-42) mmHg ABG pO2 (61-120) mmHg ABG HCO3 (22-26) mmol/L ABG O2 Content (12.0-20.0) Vol % ABG Base Excess (-2-2) mmol/L ABG Methemoglobin (0-2) % [place] Test Hemoglobin (12.0-16.0) G/DL Carboxyhemoglobin (0-4) % O2 Delivery Device Inspired O2 % Critical Value Sodium (136-145) meq/L Potassium (3.5-5.1) meq/L Chloride (98-107) meq/L Carbon Dioxide (21.0-32.0) meq/L Anion Gap (5-15) meq/L BUN (7-18) mg/dL Creatinine (0.60-1.30) mg/dL Estimated GFR (>89) mL/min POC Glucose 160 H 77 (68-110) mg/dl Random Glucose (74-106) mg/dL Hemoglobin A1c (4.3-6.0) % Calcium (8.5-10.1) mg/dL Prot Corrected Calcium (8.5-10.1) mg/dL Magnesium (1.5-2.5) mg/dL Total Bilirubin (0.2-1.0) mg/dL AST (15-37) U/L ALT (12-78) U/L Alkaline Phosphatase (45-117) U/L Troponin I (0.02-0.05) ng/mL Total Protein (6.4-8.2) g/dL Albumin (3.4-5.0) g/dL Lipase (73-393) U/L Beta-Hydroxybutyric Acd (0.00-0.39) mmol/L Urine Color (Yellw/Straw) Urine Clarity (Clear) Urine pH (5.0-8.5) Ur Specific [place] (1.002-1.035) Urine Protein (Neg-Trace) mg/dL Urine Glucose (UA) (Negative) mg/dL Urine Ketones (Negative) mg/dL Urine Occult Blood (Negative) Urine Nitrate (Negative) Urine Bilirubin (Negative) Urine Urobilinogen (Less than 2) mg/dL Ur Leukocyte Esterase (Negative) Urine RBC (0-3) /hpf Urine WBC (0-5) /hpf Urine WBC Clumps (None) Ur Squamous Epith Cells (0-5) /hpf Urine Bacteria (None) /hpf Urine Yeast (None) /hpf Micro UA Comment Ur Microscopic Review Urine Culture Comments Nasal Screen MRSA (PCR) (Negative) 03/28/18 03/28/18 03/28/18 Range/Units 08:25 11:42 13:15 WBC (4.0-11.0) th/mm3 RBC (4.50-5.90) mil/mm3 Hgb (13.0-17.0) gm/dL Hct (39.0-51.0) % MCV (80.0-100.0) fL MCH (27.0-34.0) pg MCHC (32.0-36.0) % RDW (11.6-17.2) % Plt Count (150-450) th/mm3 MPV (7.0-11.0) fL Neut % (Auto) (16.0-70.0) % Lymph % (Auto) (9.0-44.0) % [place] % (Auto) (0.0-8.0) % Eos % (Auto) (0.0-4.0) % Baso % (Auto) (0.0-2.0) % Neut # (Auto) (1.8-7.7) th/mm3 Lymph # (Auto) (1.0-4.8) th/mm3 [place] # (Auto) (0.0-0.9) th/mm3 Eos # (Auto) (0.0-0.4) th/mm3 Baso # (Auto) (0.0-0.2) th/mm3 WBC Differential Differential Comment PT 11.1 (9.8-11.6) sec INR 1.1 Ratio APTT 26.4 (24.3-30.1) sec Puncture Site Patient Temperature O2 Saturation (90-100) % ABG pH (7.380-7.420) ABG pCO2 (38-42) mmHg ABG pO2 (61-120) mmHg ABG HCO3 (22-26) mmol/L ABG O2 Content (12.0-20.0) Vol % ABG Base Excess (-2-2) mmol/L ABG Methemoglobin (0-2) % [place] Test Hemoglobin (12.0-16.0) G/DL Carboxyhemoglobin (0-4) % O2 Delivery Device Inspired O2 % Critical Value Sodium 140 D (136-145) meq/L Potassium 3.3 L (3.5-5.1) meq/L Chloride 104 (98-107) meq/L Carbon Dioxide 28.2 (21.0-32.0) meq/L Anion Gap 8 (5-15) meq/L BUN 31 H (7-18) mg/dL Creatinine 1.59 H (0.60-1.30) mg/dL Estimated GFR 45 L (>89) mL/min POC Glucose 139 H (68-110) mg/dl Random Glucose 92 (74-106) mg/dL Hemoglobin A1c (4.3-6.0) % Calcium 7.7 L (8.5-10.1) mg/dL Prot Corrected Calcium (8.5-10.1) mg/dL Magnesium (1.5-2.5) mg/dL Total Bilirubin 0.2 (0.2-1.0) mg/dL AST 14 L (15-37) U/L ALT 13 (12-78) U/L Alkaline Phosphatase 151 H (45-117) U/L Troponin I (0.02-0.05) ng/mL Total Protein 6.2 L D (6.4-8.2) g/dL Albumin 1.7 L (3.4-5.0) g/dL Lipase (73-393) U/L Beta-Hydroxybutyric Acd (0.00-0.39) mmol/L Urine Color (Yellw/Straw) Urine Clarity (Clear) Urine pH (5.0-8.5) Ur Specific [place] (1.002-1.035) Urine Protein (Neg-Trace) mg/dL Urine Glucose (UA) (Negative) mg/dL Urine Ketones (Negative) mg/dL Urine Occult Blood (Negative) Urine Nitrate (Negative) Urine Bilirubin (Negative) Urine Urobilinogen (Less than 2) mg/dL Ur Leukocyte Esterase (Negative) Urine RBC (0-3) /hpf Urine WBC (0-5) /hpf Urine WBC Clumps (None) Ur Squamous Epith Cells (0-5) /hpf Urine Bacteria (None) /hpf Urine Yeast (None) /hpf Micro UA Comment Ur Microscopic Review Urine Culture Comments Nasal Screen MRSA (PCR) (Negative) 03/28/18 03/28/18 03/29/18 Range/Units 16:25 20:02 06:46 WBC 11.9 H (4.0-11.0) th/mm3 RBC 4.22 L (4.50-5.90) mil/mm3 Hgb 11.9 L (13.0-17.0) gm/dL Hct 34.6 L (39.0-51.0) % MCV 82.0 (80.0-100.0) fL MCH 28.2 (27.0-34.0) pg MCHC 34.4 (32.0-36.0) % RDW 13.9 (11.6-17.2) % Plt Count 334 (150-450) th/mm3 MPV 8.5 (7.0-11.0) fL Neut % (Auto) (16.0-70.0) % Lymph % (Auto) (9.0-44.0) % [place] % (Auto) (0.0-8.0) % Eos % (Auto) (0.0-4.0) % Baso % (Auto) (0.0-2.0) % Neut # (Auto) (1.8-7.7) th/mm3 Lymph # (Auto) (1.0-4.8) th/mm3 [place] # (Auto) (0.0-0.9) th/mm3 Eos # (Auto) (0.0-0.4) th/mm3 Baso # (Auto) (0.0-0.2) th/mm3 WBC Differential Differential Comment PT (9.8-11.6) sec INR Ratio APTT (24.3-30.1) sec Puncture Site Patient Temperature O2 Saturation (90-100) % ABG pH (7.380-7.420) ABG pCO2 (38-42) mmHg ABG pO2 (61-120) mmHg ABG HCO3 (22-26) mmol/L ABG O2 Content (12.0-20.0) Vol % ABG Base Excess (-2-2) mmol/L ABG Methemoglobin (0-2) % [place] Test Hemoglobin (12.0-16.0) G/DL Carboxyhemoglobin (0-4) % O2 Delivery Device Inspired O2 % Critical Value Sodium (136-145) meq/L Potassium (3.5-5.1) meq/L Chloride (98-107) meq/L Carbon Dioxide (21.0-32.0) meq/L Anion Gap (5-15) meq/L BUN (7-18) mg/dL Creatinine (0.60-1.30) mg/dL Estimated GFR (>89) mL/min POC Glucose 249 H 149 H (68-110) mg/dl Random Glucose (74-106) mg/dL Hemoglobin A1c (4.3-6.0) % Calcium (8.5-10.1) mg/dL Prot Corrected Calcium (8.5-10.1) mg/dL Magnesium (1.5-2.5) mg/dL Total Bilirubin (0.2-1.0) mg/dL AST (15-37) U/L ALT (12-78) U/L Alkaline Phosphatase (45-117) U/L Troponin I (0.02-0.05) ng/mL Total Protein (6.4-8.2) g/dL Albumin (3.4-5.0) g/dL Lipase (73-393) U/L Beta-Hydroxybutyric Acd (0.00-0.39) mmol/L Urine Color (Yellw/Straw) Urine Clarity (Clear) Urine pH (5.0-8.5) Ur Specific [place] (1.002-1.035) Urine Protein (Neg-Trace) mg/dL Urine Glucose (UA) (Negative) mg/dL Urine Ketones (Negative) mg/dL Urine Occult Blood (Negative) Urine Nitrate (Negative) Urine Bilirubin (Negative) Urine Urobilinogen (Less than 2) mg/dL Ur Leukocyte Esterase (Negative) Urine RBC (0-3) /hpf Urine WBC (0-5) /hpf Urine WBC Clumps (None) Ur Squamous Epith Cells (0-5) /hpf Urine Bacteria (None) /hpf Urine Yeast (None) /hpf Micro UA Comment Ur Microscopic Review Urine Culture Comments Nasal Screen MRSA (PCR) (Negative) 03/29/18 03/29/18 03/29/18 Range/Units 06:46 06:58 11:05 WBC (4.0-11.0) th/mm3 RBC (4.50-5.90) mil/mm3 Hgb (13.0-17.0) gm/dL Hct (39.0-51.0) % MCV (80.0-100.0) fL MCH (27.0-34.0) pg MCHC (32.0-36.0) % RDW (11.6-17.2) % Plt Count (150-450) th/mm3 MPV (7.0-11.0) fL Neut % (Auto) (16.0-70.0) % Lymph % (Auto) (9.0-44.0) % [place] % (Auto) (0.0-8.0) % Eos % (Auto) (0.0-4.0) % Baso % (Auto) (0.0-2.0) % Neut # (Auto) (1.8-7.7) th/mm3 Lymph # (Auto) (1.0-4.8) th/mm3 [place] # (Auto) (0.0-0.9) th/mm3 Eos # (Auto) (0.0-0.4) th/mm3 Baso # (Auto) (0.0-0.2) th/mm3 WBC Differential Differential Comment PT (9.8-11.6) sec INR Ratio APTT (24.3-30.1) sec Puncture Site Patient Temperature O2 Saturation (90-100) % ABG pH (7.380-7.420) ABG pCO2 (38-42) mmHg ABG pO2 (61-120) mmHg ABG HCO3 (22-26) mmol/L ABG O2 Content (12.0-20.0) Vol % ABG Base Excess (-2-2) mmol/L ABG Methemoglobin (0-2) % [place] Test Hemoglobin (12.0-16.0) G/DL Carboxyhemoglobin (0-4) % O2 Delivery Device Inspired O2 % Critical Value Sodium 140 (136-145) meq/L Potassium 3.6 (3.5-5.1) meq/L Chloride 104 (98-107) meq/L Carbon Dioxide 26.2 (21.0-32.0) meq/L Anion Gap 10 (5-15) meq/L BUN 32 H (7-18) mg/dL Creatinine 1.57 H (0.60-1.30) mg/dL Estimated GFR 46 L (>89) mL/min POC Glucose 155 H 230 H (68-110) mg/dl Random Glucose 129 H (74-106) mg/dL Hemoglobin A1c (4.3-6.0) % Calcium 7.3 L* (8.5-10.1) mg/dL Prot Corrected Calcium 7.9 L (8.5-10.1) mg/dL Magnesium (1.5-2.5) mg/dL Total Bilirubin (0.2-1.0) mg/dL AST (15-37) U/L ALT (12-78) U/L Alkaline Phosphatase (45-117) U/L Troponin I (0.02-0.05) ng/mL Total Protein 6.0 L (6.4-8.2) g/dL Albumin (3.4-5.0) g/dL Lipase (73-393) U/L Beta-Hydroxybutyric Acd (0.00-0.39) mmol/L Urine Color (Yellw/Straw) Urine Clarity (Clear) Urine pH (5.0-8.5) Ur Specific [place] (1.002-1.035) Urine Protein (Neg-Trace) mg/dL Urine Glucose (UA) (Negative) mg/dL Urine Ketones (Negative) mg/dL Urine Occult Blood (Negative) Urine Nitrate (Negative) Urine Bilirubin (Negative) Urine Urobilinogen (Less than 2) mg/dL Ur Leukocyte Esterase (Negative) Urine RBC (0-3) /hpf Urine WBC (0-5) /hpf Urine WBC Clumps (None) Ur Squamous Epith Cells (0-5) /hpf Urine Bacteria (None) /hpf Urine Yeast (None) /hpf Micro UA Comment Ur Microscopic Review Urine Culture Comments Nasal Screen MRSA (PCR) (Negative) Imaging Data Radiologist's impression: Chest X-Ray 03/26/18 09:57 CONCLUSION: Faint nodular density in the left upper lobe; further evaluation with CT recommended. No evidence of acute cardiopulmonary process. Status post CABG Chest CT 03/26/18 10:59 CONCLUSION: 1. Spiculated left upper lobe mass accounts for the density noted on the recent chest x-ray. This is concerning for primary bronchogenic neoplasm until proven otherwise. Associated mediastinal adenopathy is identified and concerning for metastatic disease. 2. Emphysema. 3. Extensive atherosclerosis. Abdomen/Pelvis CT 03/26/18 11:26 CONCLUSION: 1. Marked bilateral hydronephrosis and hydroureter with distended urinary bladder and prostatomegaly characteristic of bladder outlet obstruction. 2. No evidence of suspicious mass, lymphadenopathy or metastatic disease. Discharge Plan Discharge Disposition Patient Disposition: W/Home Health Service Discharge Condition Condition: Good Discharge Order Discharge Orders: Discharge Order (Routine); Ordered 03/29/18 Ordered By: Steven Granados Physicians Team ED Provider: Kenny Mejia Primary Care Provider: UNKNOWN, Attending Provider: Steven Granados Other Providers: Jinaa,Seth ; Hector Weinberg V Status ED Status: Left Department Discharge Information Discharge Date/Time: 03/26/18 19:11
[2018-03-26] MEDS ORDERED: Potassium Chlor 20 mEq Premix 20 MEQ/100 ML PIGGYBACK IV.SIG PRN ×6 (12:29)
[2018-03-26] MEDS ORDERED: Potassium Chlor 40 mEq Premix 40 MEQ/100 ML PIGGYBACK IV.SIG PRN ×2 (12:29)
[2018-03-26] MEDS ORDERED: Sodium Phosphate Inj 15 MMOL in Sodium Chlor 0.9% Inj 100 ML IV.SIG PRN (12:29)
[2018-03-26 12:40] LABS: Bacteria,Urine Many /hpf; Bilirubin,Urine Negative (Negative); Clarity,Urine Cloudy (Clear); Color,Urine Yellow (Yellw/Straw); Glucose,Urine (UA) 500 or Greater mg/dL (Negative); Leukocyte Esterase,Urine Large (Negative); Nitrite,Urine Negative (Negative); Specific Gravity,Urine 1.021 (1.002-1.035); Squamous Epithelial Cell,Urine 1 /hpf (0-5)
--- NOTE | 2018-03-26 12:55 | CT ---
EXAM DATE: 03/26/2018 12:45 PM EDT AGE/SEX: 57 years / Male INDICATIONS: Generalized weakness. CLINICAL DATA: This is the patient's initial encounter. Patient reports that signs and symptoms have been present for 3 days and indicates a pain score of 0/10. MEDICAL/SURGICAL HISTORY: Diabetes. Hypertension. CABG. RADIATION DOSE: 11.23 CTDI (mGy) COMPARISON: No prior exams available for comparison. TECHNIQUE: Multiple contiguous axial images were obtained through the abdomen. Images were obtained using multiple row detector helical technique. Using automated exposure control and adjustment of the mA and/or kV according to patient size, radiation dose was kept as low as reasonably achievable to o btain optimal diagnostic quality images. DICOM format image data is available electronically for rev iew and comparison. FINDINGS: Lower Lungs: The visualized lower lungs are clear. Liver: The liver has a homogeneous density without space-occupying lesion. There is no dilation of th e biliary tree. Spleen: Homogeneous density without enlargement. Pancreas: Unremarkable without mass or calcification. Kidneys: Marked distention of the renal collecting systems is noted bilaterally. There is hydrourete r extending to the urinary bladder which is also markedly dilated. Adrenal Glands: Unremarkable. Aorta: The aorta and proximal iliac vessels are grossly unremarkable without aneurysmal dilation. Bowel/Mesentery: The bowel loops are grossly unremarkable. The cecum and sigmoid colon have a normal configuration. Abdominal Wall: Intact. Retroperitoneum: No evidence of adenopathy in the retrocrural, para-aortic, or deep pelvic regions. Bladder: The bladder is markedly distended. Mild generalized bladder wall thickening is identified. The upper prostatic urethra is dilated. Reproductive Organs: The prostate gland is enlarged measuring 70 cc in volume. Inguinal: The inguinal region is unremarkable without evidence of adenopathy. Bony Structures: Unremarkable. CONCLUSION: 1. Marked bilateral hydronephrosis and hydroureter with distended urinary bladder and prostatomegaly characteristic of bladder outlet obstruction. 2. No evidence of suspicious mass, lymphadenopathy or metastatic disease. Electronically signed by: Sanjay Posada MD 03/26/2018 12:53 PM EDT
[2018-03-26] MEDS ORDERED: Sod Chloride 0.9% Inj 1,000 ML IV.SIG ONE (13:07)
[2018-03-26] MEDS ORDERED: Potassium Chlor 20 mEq Premix 20 MEQ/100 ML PIGGYBACK IV.SIG STA ×2 (13:12)
[2018-03-26] MEDS: Sod Chloride 0.9% Inj 1,000 ML IV.CONT SCH ×4 (14:04→20:37)
[2018-03-26 15:31] LABS: Anion Gap 7 meq/L (5-15); Blood Urea Nitrogen 42 mg/dL (7-18); Carbon Dioxide 36.5 meq/L (21.0-32.0); Chloride 105 meq/L (98-107); Glomerular Filtration Rate 25 mL/min (>89); Glucose,Random 440 mg/dL (74-106); Sodium 148 meq/L (136-145)
[2018-03-26 15:36] LABS: Potassium 2.6 meq/L (3.5-5.1)
--- NOTE | 2018-03-26 16:33 | P.HPIM ---
History of Present Illness Primary Care Physician: UNKNOWN History of Present Illness: Mr. Driscoll is a 57-year-old male. 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 At baseline he has bilateral lower extremity paralysis and chronic Guillain-Pickard syndrome for 11 years. Workup has also revealed a chest mass which is spiculated and concerning for metastatic disease. Chest mass measures approximately 2 cm in diameter. Patient reports that his brother has pulmonary nodules. He is a type II diabetic. He cannot recall another episode like this where he had to be hospitalized for his blood sugars. Inpatient Certification: I certify that the inpatient services were ordered in accordance with Medicare regulations governing the order. This includes certification that hospital inpatient services are reasonable and necessary and in the case of services not specified as inpatient-only under 42 CFR 419.22(n), that they are appropriately provided as inpatient services in accordance to with the 2-midnight benchmark under 43 CFR 412.3(e) Estimated Total Length of Stay (Days): 2 Plans for Post Hospital Care: Home Review of Systems Constitutional: Reports fatigue, Reports weakness, Denies fever(s), Denies night sweats Eyes: Denies blurry vision, Denies bulging eyes, Denies double vision Ears, Nose, Mouth, and Throat: Denies abnormal hearing, Denies bleeding gums Cardiovascular: Denies chest pain, Denies chest pain at rest, Denies chest pain with activity Respiratory: Denies change in phlegm color, Denies chest congestion, Denies coughing up blood, Denies shortness of breath, Denies wheezing Gastrointestinal: Denies abdominal pain, Denies black, tarry stools, Denies bloating, Denies bright, red blood in stools Musculoskeletal: Reports body aches, Denies back pain, Denies deformity Skin/Breast: Denies rash, Denies skin pain, Denies skin ulcer Neurologic: Denies abnormal hearing, Denies abnormal movements, Denies abnormal speech Psychiatric: Denies abnormal sleep pattern, Denies anxiety, Denies behavioral changes PMF - History History Provided By: Patient, Family Member - Medical History Medical History: Medical History (Last Updated 03/26/18 @ 09:40 by Bridgette Carvalho) Diabetes Guillain Pickard syndrome High cholesterol Hypertension - Surgical History Surgical History: Surgical History (Last Updated 03/26/18 @ 10:05 by Bridgette Carvalho) Hx of CABG - Family History Family History: Family History (Last Updated 03/26/18 @ 16:42 by Everton Thibodeaux MD) Other Osteoarthritis - Tobacco History Second Hand Smoke Exposure: Yes Tobacco Use In Past 30 Days: Yes Smoking Status: Current every day smoker Tobacco Type: Cigarettes - Alcohol History How Often Do You Have a Drink Containing Alcohol: Never - Substance Use History Substance History: No History of Abuse - Travel History Recent Travel in the [place] Within the Last 8 Weeks: No Recent Travel Out of the Country Within the Last 8 Weeks: No - Immunization History Tetanus Immunization: <5 Years Medications and Allergies Active Medications: Active Medications Al Hydroxide/Mg Hydroxide (Milk Of Hali Lifr[place]) 30 ml PO Q12H PRN PRN Reason: Mild Constipation Chlorhexidine Gluconate (Chlorhexidine 2% Cloth) 3 pack TOPICAL DAILY@0400 NGOZI Stop: 04/01/18 03:59 Chlorhexidine Gluconate (Chlorhexidine 2% Cloth) 3 pack TOPICAL DAILY@0400 PRN PRN Reason: Extra cloth needed Stop: 04/01/18 03:59 Insulin Human Regular 100 unit (/ Sodium Chloride) 100 mls @ 6 mls/hr IV.CONT TITRATE STA; Protocol Stop: 03/27/18 02:36 Last Admin: 03/26/18 10:55 Dose: 6 units/hr, 6 mls/hr Sodium Chloride (Ns Inj) 1,000 mls @ 250 mls/hr IV.CONT .Q4H NGOZI Last Admin: 03/26/18 14:04 Dose: 250 mls/hr Potassium Chloride (Kcl 40 Meq Premix Inj) 40 meq in 100 mls @ 100 mls/hr IV.SIG Q1H PRN PRN Reason: for Initial K+ ONLY < 3.5 Potassium Chloride (Kcl 40 Meq Premix Inj) 40 meq in 100 mls @ 50 mls/hr IV.SIG Q2H PRN PRN Reason: for Subsequent K+ < 3.5 Potassium Chloride (Kcl 20 Meq Premix Inj) 20 meq in 100 mls @ 100 mls/hr IV.SIG Q1H PRN PRN Reason: for K+ 4.5 to 5 Last Admin: 03/26/18 15:41 Dose: 100 mls/hr Potassium Chloride (Kcl 20 Meq Premix Inj) 20 meq in 100 mls @ 50 mls/hr IV.SIG Q2H PRN PRN Reason: for Initial K+ ONLY < 3.5 Potassium Chloride (Kcl 20 Meq Premix Inj) 20 meq in 100 mls @ 50 mls/hr IV.SIG Q2H PRN PRN Reason: for Subsequent K+ < 3.5 Potassium Chloride (Kcl 20 Meq Premix Inj) 20 meq in 100 mls @ 50 mls/hr IV.SIG Q2H PRN PRN Reason: for K+ 4.5 to 5 Sodium Phosphate 15 mmol/ (Sodium Chloride) 105 mls @ 25 mls/hr IV.SIG UNSCH PRN PRN Reason: for Phosphate Level < 1.0 Dextrose/Sodium Chloride (D5w/Normal Saline Inj) 1,000 mls @ 200 mls/hr IV.CONT .Q5H NGOZI Sodium Chloride (1/2 Normal Saline Inj) 1,000 mls @ 250 mls/hr IV.CONT .Q4H NGOZI Sodium Chloride (Ns Inj) 1,000 mls @ 100 mls/hr IV.CONT .Q10H NGOZI Ondansetron HCl (Zofran Inj) 4 mg IV.PUSH Q6H PRN PRN Reason: NAUSEA OR VOMITING Sodium Bicarbonate (Sodium Bicarbonate 8.4% Inj) 50 meq IV.PUSH UNSCH PRN PRN Reason: for pH 6.9 to 7.0 Sodium Bicarbonate (Sodium Bicarbonate 8.4% Inj) 100 meq IV.PUSH UNSCH PRN PRN Reason: for pH less than 6.9 Allergies Allergy/AdvReac Type Severity Reaction Status Date / Time sodium bicarbonate AdvReac Vomiting Verified 03/26/18 13:39 Home Medications Medication Instructions Recorded Confirmed Type Novolin 70/30 U-100 Insulin 03/26/18 History atorvastatin 20 mg PO HS 03/26/18 03/26/18 History clopidogrel 75 mg PO DAILY 03/26/18 03/26/18 History lisinopril 10 mg PO DAILY 03/26/18 03/26/18 History metoprolol tartrate [Lopressor] 25 mg PO DAILY 03/26/18 03/26/18 History morphine 15 mg PO DAILY 03/26/18 03/26/18 History Exam Vital signs: Vital Signs 03/26/18 09:18 03/26/18 14:30 Temperature 97.9 F Pulse Rate 93 H 89 Respiratory Rate 18 20 Blood Pressure 101/58 L 110/60 Pulse Oximetry 96 Intake & Output 03/25/18 03/26/18 03/26/18 18:59 06:59 18:59 Intake Total 2099 Output Total 1199 / 1200 Balance 900 / 900 Weight 63.503 kg Intake: IV 2099 KCl 20 mEq Premix Inj 20 meq In 100 / 100 100 ml @ 50 mls/hr IV.SIG ONCE STA Rx#:[id number] NS Inj 1,000 ML @ Wide Open IV. 1999 SIG BOLUS ONE Rx#:[id number] Output: Urine Amount (Catheter) 1199 Indwelling Urethral Catheter 1199 Narrative: GENERAL: NAD, A&Ox3 HEAD: Normocephalic. NECK: Supple, trachea midline. No lymphadenopathy. EYES: No scleral icterus. No injection or drainage. CARDIOVASCULAR: Regular rate and rhythm without murmurs, gallops, or rubs. RESPIRATORY: Breath sounds equal bilaterally. No accessory muscle use. GASTROINTESTINAL: Abdomen soft, non-tender, nondistended. MUSCULOSKELETAL: No cyanosis, or edema. SKIN: Warm and dry. NEURO: No focal neurological deficits. Bilateral Lower extremity weakness ( chronic) Results - Labs CBC & Chem 7: 03/26/18 10:15 03/26/18 13:49 Labs: Short CBC 03/26/18 Range/Units 10:15 WBC 17.9 H (4.0-11.0) th/mm3 Hgb 12.6 L (13.0-17.0) gm/dL Hct 38.4 L (39.0-51.0) % Plt Count 393 (150-450) th/mm3 BMP 03/26/18 03/26/18 10:15 13:49 Sodium 138 148 H D Potassium 3.3 L 2.6 L* Chloride 94 L 105 D Carbon Dioxide 33.9 H 36.5 H BUN 45 H 42 H Creatinine 2.90 H 2.63 H Calcium 9.2 9.0 Cardiac Enzymes 03/26/18 Range/Units 13:49 Troponin I Less than 0.02 L (0.02-0.05) ng/mL Liver Function 03/26/18 Range/Units 10:15 Total Bilirubin 0.3 (0.2-1.0) mg/dL AST 7 L (15-37) U/L ALT 15 (12-78) U/L Alkaline Phosphatase 247 H (45-117) U/L Albumin 2.4 L (3.4-5.0) g/dL Urine 03/26/18 Range/Units 10:50 Urine Color Yellow (Yellw/Straw) Urine Clarity Cloudy H (Clear) Urine pH 5.0 (5.0-8.5) Ur Specific [place] 1.021 (1.002-1.035) Urine Protein 100 H (Neg-Trace) mg/dL Urine Glucose (UA) 500 or greater (Negative) mg/dL - Imaging Impressions Chest X-Ray 03/26/18 09:57 CONCLUSION: Faint nodular density in the left upper lobe; further evaluation with CT recommended. No evidence of acute cardiopulmonary process. Status post CABG Chest CT 03/26/18 10:59 CONCLUSION: 1. Spiculated left upper lobe mass accounts for the density noted on the recent chest x-ray. This is concerning for primary bronchogenic neoplasm until proven otherwise. Associated mediastinal adenopathy is identified and concerning for metastatic disease. 2. Emphysema. 3. Extensive atherosclerosis. Abdomen/Pelvis CT 03/26/18 11:26 CONCLUSION: 1. Marked bilateral hydronephrosis and hydroureter with distended urinary bladder and prostatomegaly characteristic of bladder outlet obstruction. 2. No evidence of suspicious mass, lymphadenopathy or metastatic disease. Caprini VTE Risk Assessment Caprini VTE Risk Assessment: Moderate/High Risk (score >= 2) Caprini Risk Assessment Model: Point Value = 1 Point Value = 2 Point Value = 3 Point Value = 5 Age 41-60 Minor surgery BMI > 25 kg/m2 Swollen legs Varicose veins or History of unexplained or recurrent spontaneous Oral contraceptives or hormone replacement Sepsis (< 1 month) Serious lung disease, including pneumonia (< 1 month) Abnormal pulmonary function Acute myocardial infarction Congestive heart failure (< 1 month) History of inflammatory bowel disease Medical patient at bed rest Age 61-74 Arthroscopic surgery Major open surgery (> 45 min) Laparoscopic surgery (> 45 min) Malignancy Confined to bed (> 72 hours) Immobilizing plaster cast Central venous access Age >= 75 History of VTE Family history of VTE Factor V Leiden Prothrombin [id number] Lupus anticoagulant Anticardiolipin antibodies Elevated serum homocysteine Heparin-induced thrombocytopenia Other congenital or acquired thrombophilia Stroke (< 1 month) Elective arthroplasty Hip, pelvis, or leg fracture Acute spinal cord injury (< 1 month) Prophylaxis Regimen: Total Risk Factor Score Risk Level Prophylaxis Regimen 0-1 Low Early ambulation 2 Moderate Order ONE of the following: *Sequential Compression Device (SCD) *Heparin 5000 units SQ BID 3-4 Higher Order ONE of the following medications: *Heparin 5000 units SQ TID *Enoxaparin/Lovenox 40 mg SQ daily (WT < 150 kg, CrCl > 30 mL/min) *Enoxaparin/Lovenox 30 mg SQ daily (WT < 150 kg, CrCl > 10-29 mL/min) *Enoxaparin/Lovenox 30 mg SQ BID (WT < 150 kg, CrCl > 30 mL/min) AND/OR *Sequential Compression Device (SCD) 5 or more Highest Order ONE of the following medications: *Heparin 5000 units SQ TID (Preferred with Epidurals) *Enoxaparin/Lovenox 40 mg SQ daily (WT < 150 kg, CrCl > 30 mL/min) *Enoxaparin/Lovenox 30 mg SQ daily (WT < 150 kg, CrCl > 10-29 mL/min) *Enoxaparin/Lovenox 30 mg SQ BID (WT < 150 kg, CrCl > 30 mL/min) AND *Sequential Compression Device (SCD) Assessment and Plan - Plan 57 year old male admitted with Diabetic HHS. Diabetic HHS IV Insulin Follow in ICU Follow electrolytes IV Hydration Follow on Telemetry Follow vital signs Follow blood sugars Transition to SQ insulin once blood sugars stable Bilateral Foot Wounds/MRSA Previously treated as an outpatient Continue inpatient care Wound care consult Lung Mass Biopsy may be considered after stabilization Guillain Pickard syndrome Chronic Bilateral Lower Extremity Paralysis Supportive Care Patient does not feel these conditions are exacerbated in any way High cholesterol Follow as an outpatient Continue baseline treatment Hypertension Follow BPs Continue baseline treatments Adjust as needed DVT Prophylaxis Heparin
[2018-03-26] MEDS ORDERED: Dextrose 50% in Water Syringe 50 ML ONE (18:43)
[2018-03-26] MEDS: Dextrose 5%/NaCl 0.9% Inj 1,000 ML IV.CONT SCH (18:54)
[2018-03-26] MEDS: Heparin - SQ 10,000 UNITS/ML Vial SQ SCH (20:33)
[2018-03-26 21:50] LABS: Anion Gap 10 meq/L (5-15); Blood Urea Nitrogen 36 mg/dL (7-18); Calcium 8.5 mg/dL (8.5-10.1); Carbon Dioxide 29.2 meq/L (21.0-32.0); Chloride 112 meq/L (98-107); Glomerular Filtration Rate 35 mL/min (>89); Glucose,Random 221 mg/dL (74-106); Potassium 3.2 meq/L (3.5-5.1); Sodium 151 meq/L (136-145)
[2018-03-27 01:09] LABS: Beta Hydroxybutyric Acid 0.06 mmol/L (0.00-0.39); Calcium 8.5 mg/dL (8.5-10.1); Carbon Dioxide 27.6 meq/L (21.0-32.0); Potassium 3.3 meq/L (3.5-5.1)
[2018-03-27] MEDS: Sod Chloride 0.9% Inj 1,000 ML IV.CONT SCH (02:11)
[2018-03-27] MEDS ORDERED: Chlorhexidine Gluconate 2% 1 Pack (2 Cloths) TOPICAL PRN (04:00)
[2018-03-27] MEDS: Chlorhexidine Gluconate 2% 1 Pack (2 Cloths) TOPICAL SCH (04:06)
[2018-03-27 04:14] LABS: Baso # (Auto) 0.1 th/mm3 (0.0-0.2); Baso % (Auto) 0.4 % (0.0-2.0); Eos # (Auto) 0.1 th/mm3 (0.0-0.4); Eos % (Auto) 0.4 % (0.0-4.0); Hematocrit 38.6 % (39.0-51.0); Lymph # (Auto) 2.5 th/mm3 (1.0-4.8); Mean Corpuscular HGB Conc 33.8 % (32.0-36.0); Mean Platelet Volume 8.6 fL (7.0-11.0); Mono # (Auto) 0.7 th/mm3 (0.0-0.9); Mono % (Auto) 4.3 % (0.0-8.0); Neut # (Auto) 13.2 th/mm3 (1.8-7.7); Neut % (Auto) 79.9 % (16.0-70.0); Platelet Count 395 th/mm3 (150-450); Red Blood Count 4.65 mil/mm3 (4.50-5.90); Red Cell Distribution Width 13.8 % (11.6-17.2); White Blood Count 16.5 th/mm3 (4.0-11.0)
[2018-03-27 04:48] LABS: Anion Gap 8 meq/L (5-15)
[2018-03-27 04:52] LABS: Alanine Aminotransferase 13 U/L (12-78); Alkaline Phosphatase 193 U/L (45-117); Aspartate Aminotransferase 16 U/L (15-37); Beta Hydroxybutyric Acid 0.13 mmol/L (0.00-0.39); Blood Urea Nitrogen 30 mg/dL (7-18); Calcium 8.3 mg/dL (8.5-10.1); Carbon Dioxide 32.8 meq/L (21.0-32.0); Chloride 110 meq/L (98-107); Glomerular Filtration Rate 43 mL/min (>89); Glucose,Random 79 mg/dL (74-106); Sodium 151 meq/L (136-145); Total Protein 7.8 g/dL (6.4-8.2)
[2018-03-27 04:57] LABS: Potassium 2.7 meq/L (3.5-5.1)
[2018-03-27] MEDS: Heparin - SQ 10,000 UNITS/ML Vial SQ SCH (08:58)
[2018-03-27] MEDS: Lisinopril 10 MG Tablet PO SCH (09:02)
[2018-03-27] MEDS: Metoprolol Tartrate 50 MG Tablet PO SCH (09:02)
[2018-03-27] MEDS ORDERED: Dextrose 50% in Water 50 ML Vial IV.PUSH PRN (10:05)
--- NOTE | 2018-03-27 10:05 | P.PNIM ---
Subjective Interval history: Patient is currently transitioning out of [facility]. Blood sugars improved, acute kidney injury improved. Potassium level remains significantly low this morning and replacements are needed. Additionally patient had hematuria start overnight. This may be related to heparin which was added as a DVT prophylactic treatment. Additionally this could be irritation from his Pandey catheter. Physical Exam Vital signs: Vital Signs 03/26/18 14:30 03/26/18 19:00 03/26/18 20:00 Temperature 98.1 F 98.5 F Pulse Rate 89 85 75 Respiratory Rate 20 15 18 Blood Pressure 110/60 127/65 156/75 H Pulse Oximetry 100 100 03/27/18 00:00 03/27/18 04:00 03/27/18 08:00 Temperature 98.3 F 98.6 F 98.6 F Pulse Rate 77 86 88 Respiratory Rate 16 18 13 Blood Pressure 138/79 123/72 96/61 L Pulse Oximetry 100 94 L 100 Intake & Output 03/26/18 03/27/18 03/27/18 18:59 06:59 18:59 Intake Total 2100 / 2100 3210 / 3210 Output Total 1200 / 1200 2700 / 2700 Balance 900 / 900 510 / 510 Weight 63.503 kg 59 kg Intake: IV 2099 / 2099 2250 / 2250 D50W Syringe 50 ML @ 0 mls/hr . 50 / 50 ROUTE .STK-MED ONE Rx#:[id number] D5W/Normal Saline Inj 1,000 ML 1000 / 1000 @ 100 mls/hr IV.CONT .Q10H NGOZI Rx#:[id number] NovoLIN R (IV Infusion) 100 100 / 100 UNIT In NS Inj 99 ML @ 6 UNITS/ HR 6 mls/hr IV.CONT TITRATE STA Rx#:[id number] KCl 20 mEq Premix Inj 20 meq In 100 / 100 100 / 100 100 ml @ 100 mls/hr IV.SIG Q1H PRN Rx#:[id number] NS Inj 1,000 ML @ Wide Open IV. 1999 SIG BOLUS ONE Rx#:[id number] Oral 960 / 960 Output: Urine Amount (Catheter) 1200 / 1200 2700 / 2700 Indwelling Urethral Catheter 1200 / 1200 2700 / 2700 Other: Date of Last Bowel Movement 03/25/18 03/25/18 Weight On Admission 58 kg Narrative: GENERAL: NAD, A&Ox3 HEAD: Normocephalic. NECK: Supple, trachea midline. No lymphadenopathy. EYES: No scleral icterus. No injection or drainage. CARDIOVASCULAR: Regular rate and rhythm without murmurs, gallops, or rubs. RESPIRATORY: Breath sounds equal bilaterally. No accessory muscle use. GASTROINTESTINAL: Abdomen soft, non-tender, nondistended. MUSCULOSKELETAL: No cyanosis, or edema. SKIN: Warm and dry. NEURO: No focal neurological deficits. Chronic lower extremity weakness. - Urinary Catheter Management Indwelling Urethral Catheter Cath placed during this visit: yes Reason for continuing: Chronic Urinary Retention Insertion date: 03/26/18 Insertion time: 14:00 Results - Labs CBC & Chem 7: 03/27/18 03:05 03/27/18 03:05 Laboratory Results - last 24 hr 03/26/18 03/26/18 03/26/18 09:57 10:15 10:15 WBC 17.9 H RBC 4.49 L Hgb 12.6 L Hct 38.4 L MCV 85.5 MCH 27.9 MCHC 32.7 RDW 13.8 Plt Count 393 MPV 9.2 Neut % (Auto) 88.5 H Lymph % (Auto) 7.2 L [place] % (Auto) 4.0 Eos % (Auto) 0.0 Baso % (Auto) 0.3 Neut # (Auto) 15.9 H Lymph # (Auto) 1.3 [place] # (Auto) 0.7 Eos # (Auto) 0.0 Baso # (Auto) 0.0 WBC Differential . Differential Comment Auto diff final Puncture Site Patient Temperature O2 Saturation ABG pH ABG pCO2 ABG pO2 ABG HCO3 ABG O2 Content ABG Base Excess ABG Methemoglobin Hosea Test Hemoglobin Carboxyhemoglobin O2 Delivery Device Inspired O2 Critical Value Sodium 138 Potassium 3.3 L Chloride 94 L Carbon Dioxide 33.9 H Anion Gap 10 BUN 45 H Creatinine 2.90 H Estimated GFR 23 L POC Glucose Greater than 600 H* Random Glucose 843 H* Calcium 9.2 Magnesium 2.2 Total Bilirubin 0.3 AST 7 L ALT 15 Alkaline Phosphatase 247 H Troponin I Total Protein 8.9 H Albumin 2.4 L Lipase 484 H Beta-Hydroxybutyric Acd 0.70 H Urine Color Urine Clarity Urine pH Ur Specific [place] Urine Protein Urine Glucose (UA) Urine Ketones Urine Occult Blood Urine Nitrate Urine Bilirubin Urine Urobilinogen Ur Leukocyte Esterase Urine RBC Urine WBC Urine WBC Clumps Ur Squamous Epith Cells Urine Bacteria Urine Yeast Micro UA Comment Ur Microscopic Review Urine Culture Comments Nasal Screen MRSA (PCR) 03/26/18 03/26/18 03/26/18 10:32 10:50 12:08 WBC RBC Hgb Hct MCV MCH MCHC RDW Plt Count MPV Neut % (Auto) Lymph % (Auto) [place] % (Auto) Eos % (Auto) Baso % (Auto) Neut # (Auto) Lymph # (Auto) [place] # (Auto) Eos # (Auto) Baso # (Auto) WBC Differential Differential Comment Puncture Site Left brachial Patient Temperature 98.6 O2 Saturation 92 ABG pH 7.41 ABG pCO2 51 H* ABG pO2 79 ABG HCO3 31 H ABG O2 Content 14.0 ABG Base Excess 6.6 H ABG Methemoglobin 1.3 [place] Test Y Hemoglobin 10.7 L Carboxyhemoglobin 2.0 O2 Delivery Device Room air Inspired O2 21 Critical Value Yes Sodium Potassium Chloride Carbon Dioxide Anion Gap BUN Creatinine Estimated GFR POC Glucose Greater than 600 H* Random Glucose Calcium Magnesium Total Bilirubin AST ALT Alkaline Phosphatase Troponin I Total Protein Albumin Lipase Beta-Hydroxybutyric Acd Urine Color Yellow Urine Clarity Cloudy H Urine pH 5.0 Ur Specific [place] 1.021 Urine Protein 100 H Urine Glucose (UA) 500 or greater Urine Ketones Negative Urine Occult Blood Moderate H Urine Nitrate Negative Urine Bilirubin Negative Urine Urobilinogen Less than 2 Ur Leukocyte Esterase Large H Urine RBC 9 H Urine WBC Urine WBC Clumps Many H Ur Squamous Epith Cells 1 Urine Bacteria Many H Urine Yeast Few H Micro UA Comment Culture indicated Ur Microscopic Review Not Reportable Urine Culture Comments Culture indicated Nasal Screen MRSA (PCR) 03/26/18 03/26/18 03/26/18 13:49 16:25 18:30 WBC RBC Hgb Hct MCV MCH MCHC RDW Plt Count MPV Neut % (Auto) Lymph % (Auto) [place] % (Auto) Eos % (Auto) Baso % (Auto) Neut # (Auto) Lymph # (Auto) [place] # (Auto) Eos # (Auto) Baso # (Auto) WBC Differential Differential Comment Puncture Site Patient Temperature O2 Saturation ABG pH ABG pCO2 ABG pO2 ABG HCO3 ABG O2 Content ABG Base Excess ABG Methemoglobin [place]osea Test Hemoglobin Carboxyhemoglobin O2 Delivery Device Inspired O2 Critical Value Sodium 148 H D Potassium 2.6 L* Chloride 105 D Carbon Dioxide 36.5 H Anion Gap 7 BUN 42 H Creatinine 2.63 H Estimated GFR 25 L POC Glucose 309 H Random Glucose 440 H D Calcium 9.0 Magnesium Total Bilirubin AST ALT Alkaline Phosphatase Troponin I Less than 0.02 L Total Protein Albumin Lipase Beta-Hydroxybutyric Acd Urine Color Urine Clarity Urine pH Ur Specific [place] Urine Protein Urine Glucose (UA) Urine Ketones Urine Occult Blood Urine Nitrate Urine Bilirubin Urine Urobilinogen Ur Leukocyte Esterase Urine RBC Urine WBC Urine WBC Clumps Ur Squamous Epith Cells Urine Bacteria Urine Yeast Micro UA Comment Ur Microscopic Review Urine Culture Comments Nasal Screen MRSA (PCR) Mrsa detected 03/26/18 03/26/18 03/26/18 18:39 18:52 19:31 WBC RBC Hgb Hct MCV MCH MCHC RDW Plt Count MPV Neut % (Auto) Lymph % (Auto) [place] % (Auto) Eos % (Auto) Baso % (Auto) Neut # (Auto) Lymph # (Auto) [place] # (Auto) Eos # (Auto) Baso # (Auto) WBC Differential Differential Comment Puncture Site Patient Temperature O2 Saturation ABG pH ABG pCO2 ABG pO2 ABG HCO3 ABG O2 Content ABG Base Excess ABG Methemoglobin [place]osea Test Hemoglobin Carboxyhemoglobin O2 Delivery Device Inspired O2 Critical Value Sodium Potassium Chloride Carbon Dioxide Anion Gap BUN Creatinine Estimated GFR POC Glucose 62 L 215 H 256 H Random Glucose Calcium Magnesium Total Bilirubin AST ALT Alkaline Phosphatase Troponin I Total Protein Albumin Lipase Beta-Hydroxybutyric Acd Urine Color Urine Clarity Urine pH Ur Specific [place] Urine Protein Urine Glucose (UA) Urine Ketones Urine Occult Blood Urine Nitrate Urine Bilirubin Urine Urobilinogen Ur Leukocyte Esterase Urine RBC Urine WBC Urine WBC Clumps Ur Squamous Epith Cells Urine Bacteria Urine Yeast Micro UA Comment Ur Microscopic Review Urine Culture Comments Nasal Screen MRSA (PCR) 03/26/18 03/26/18 03/26/18 20:31 21:26 21:29 WBC RBC Hgb Hct MCV MCH MCHC RDW Plt Count MPV Neut % (Auto) Lymph % (Auto) [place] % (Auto) Eos % (Auto) Baso % (Auto) Neut # (Auto) Lymph # (Auto) [place] # (Auto) Eos # (Auto) Baso # (Auto) WBC Differential Differential Comment Puncture Site Patient Temperature O2 Saturation ABG pH ABG pCO2 ABG pO2 ABG HCO3 ABG O2 Content ABG Base Excess ABG Methemoglobin Hosea Test Hemoglobin Carboxyhemoglobin O2 Delivery Device Inspired O2 Critical Value Sodium 151 H Potassium 3.2 L Chloride 112 H Carbon Dioxide 29.2 Anion Gap 10 BUN 36 H Creatinine 1.97 H Estimated GFR 35 L POC Glucose 251 H 311 H Random Glucose 221 H D Calcium 8.5 Magnesium Total Bilirubin AST ALT Alkaline Phosphatase Troponin I Less than 0.02 L Total Protein Albumin Lipase Beta-Hydroxybutyric Acd Urine Color Urine Clarity Urine pH Ur Specific [place] Urine Protein Urine Glucose (UA) Urine Ketones Urine Occult Blood Urine Nitrate Urine Bilirubin Urine Urobilinogen Ur Leukocyte Esterase Urine RBC Urine WBC Urine WBC Clumps Ur Squamous Epith Cells Urine Bacteria Urine Yeast Micro UA Comment Ur Microscopic Review Urine Culture Comments Nasal Screen MRSA (PCR) 03/26/18 03/27/18 03/27/18 23:41 00:35 02:10 WBC RBC Hgb Hct MCV MCH MCHC RDW Plt Count MPV Neut % (Auto) Lymph % (Auto) [place] % (Auto) Eos % (Auto) Baso % (Auto) Neut # (Auto) Lymph # (Auto) [place] # (Auto) Eos # (Auto) Baso # (Auto) WBC Differential Differential Comment Puncture Site Patient Temperature O2 Saturation ABG pH ABG pCO2 ABG pO2 ABG HCO3 ABG O2 Content ABG Base Excess ABG Methemoglobin Hosea Test Hemoglobin Carboxyhemoglobin O2 Delivery Device Inspired O2 Critical Value Sodium 152 H Potassium 3.3 L Chloride 114 H Carbon Dioxide 27.6 Anion Gap 10 BUN 33 H Creatinine 1.70 H Estimated GFR 42 L POC Glucose 249 H 186 H Random Glucose 166 H Calcium 8.5 Magnesium Total Bilirubin AST ALT Alkaline Phosphatase Troponin I Total Protein Albumin Lipase Beta-Hydroxybutyric Acd 0.06 D Urine Color Urine Clarity Urine pH Ur Specific [place] Urine Protein Urine Glucose (UA) Urine Ketones Urine Occult Blood Urine Nitrate Urine Bilirubin Urine Urobilinogen Ur Leukocyte Esterase Urine RBC Urine WBC Urine WBC Clumps Ur Squamous Epith Cells Urine Bacteria Urine Yeast Micro UA Comment Ur Microscopic Review Urine Culture Comments Nasal Screen MRSA (PCR) 03/27/18 03/27/18 03/27/18 03:05 03:05 05:12 WBC 16.5 H RBC 4.65 Hgb 13.0 Hct 38.6 L MCV 83.0 MCH 28.0 MCHC 33.8 RDW 13.8 Plt Count 395 MPV 8.6 Neut % (Auto) 79.9 H Lymph % (Auto) 15.0 [place] % (Auto) 4.3 Eos % (Auto) 0.4 Baso % (Auto) 0.4 Neut # (Auto) 13.2 H Lymph # (Auto) 2.5 [place] # (Auto) 0.7 Eos # (Auto) 0.1 Baso # (Auto) 0.1 WBC Differential . Differential Comment Auto diff final Puncture Site Patient Temperature O2 Saturation ABG pH ABG pCO2 ABG pO2 ABG HCO3 ABG O2 Content ABG Base Excess ABG Methemoglobin [place]osea Test Hemoglobin Carboxyhemoglobin O2 Delivery Device Inspired O2 Critical Value Sodium 151 H Potassium 2.7 L* Chloride 110 H Carbon Dioxide 32.8 H Anion Gap 8 BUN 30 H Creatinine 1.67 H Estimated GFR 43 L POC Glucose 191 H Random Glucose 79 Calcium 8.3 L Magnesium Total Bilirubin 0.2 AST 16 ALT 13 Alkaline Phosphatase 193 H Troponin I Total Protein 7.8 D Albumin 2.0 L Lipase Beta-Hydroxybutyric Acd 0.13 Urine Color Urine Clarity Urine pH Ur Specific [place] Urine Protein Urine Glucose (UA) Urine Ketones Urine Occult Blood Urine Nitrate Urine Bilirubin Urine Urobilinogen Ur Leukocyte Esterase Urine RBC Urine WBC Urine WBC Clumps Ur Squamous Epith Cells Urine Bacteria Urine Yeast Micro UA Comment Ur Microscopic Review Urine Culture Comments Nasal Screen MRSA (PCR) 03/27/18 08:56 WBC RBC Hgb Hct MCV MCH MCHC RDW Plt Count MPV Neut % (Auto) Lymph % (Auto) [place] % (Auto) Eos % (Auto) Baso % (Auto) Neut # (Auto) Lymph # (Auto) [place] # (Auto) Eos # (Auto) Baso # (Auto) WBC Differential Differential Comment Puncture Site Patient Temperature O2 Saturation ABG pH ABG pCO2 ABG pO2 ABG HCO3 ABG O2 Content ABG Base Excess ABG Methemoglobin Hosea Test Hemoglobin Carboxyhemoglobin O2 Delivery Device Inspired O2 Critical Value Sodium Potassium Chloride Carbon Dioxide Anion Gap BUN Creatinine Estimated GFR POC Glucose 200 H Random Glucose Calcium Magnesium Total Bilirubin AST ALT Alkaline Phosphatase Troponin I Total Protein Albumin Lipase Beta-Hydroxybutyric Acd Urine Color Urine Clarity Urine pH Ur Specific [place] Urine Protein Urine Glucose (UA) Urine Ketones Urine Occult Blood Urine Nitrate Urine Bilirubin Urine Urobilinogen Ur Leukocyte Esterase Urine RBC Urine WBC Urine WBC Clumps Ur Squamous Epith Cells Urine Bacteria Urine Yeast Micro UA Comment Ur Microscopic Review Urine Culture Comments Nasal Screen MRSA (PCR) - Imaging Impressions Chest X-Ray 03/26/18 09:57 CONCLUSION: Faint nodular density in the left upper lobe; further evaluation with CT recommended. No evidence of acute cardiopulmonary process. Status post CABG Chest CT 03/26/18 10:59 CONCLUSION: 1. Spiculated left upper lobe mass accounts for the density noted on the recent chest x-ray. This is concerning for primary bronchogenic neoplasm until proven otherwise. Associated mediastinal adenopathy is identified and concerning for metastatic disease. 2. Emphysema. 3. Extensive atherosclerosis. Abdomen/Pelvis CT 03/26/18 11:26 CONCLUSION: 1. Marked bilateral hydronephrosis and hydroureter with distended urinary bladder and prostatomegaly characteristic of bladder outlet obstruction. 2. No evidence of suspicious mass, lymphadenopathy or metastatic disease. Assessment and Plan - Plan 57 year old male admitted with Diabetic HHS. Blood sugars are improved. Transfer out of ICU. Electrolytes remain disrupted. Balance electrolytes prior to discharge. 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
[2018-03-27] MEDS: Insulin NovoLOG Aspart Correctional Sugar Inj SQ SCH ×3 (11:57→21:33)
--- NOTE | 2018-03-27 15:01 | P.PNWCN ---
Wound Care Nurse Consult Description: Wound consult ordered by for wound management. Communicated with: Alanna GUTIERREZ, Recommendation: 1. Float heel or have heel protector boots on while in bed. 2. Cleanse bilateral lower extremities with normal saline only , Wound cleanser deactivated Santyl. 3. Apply 2mm thick layer of Santyl to open wound bases cover with saline moistened gauze secure with ABD/rolled and papr tape. 4. Sign and date all dressings, change dressings daily or as needed for dislodgement/exudate management 5. Follow up with out patient wound center. Wound/Pressure Injury - Patient Status Premedicated for Pain Prior to Dressing Change: No - Wound Midline Coccyx Length: 2.5 Width: 2.5 Depth: 2 Left lat foot Wound Staging: Stage II Wound Assessment: Ongoing Wound Type: Pressure Injury Is This a Chronic Wound: Yes Requested from Provider a Wound Care Consult: No Length: 1.5 Width: 1.0 Depth: 0.2 Wound Bed Appearance: Red Surrounding Tissue Temperature: Warm Drainage Description: Serosanguinous Drainage Amount: Minimal Drainage Odor: No Odor Dressing Status: Changed Wound Packing Type: Gauze Roll Primary Dressing: Absorbant Pad Wound Dressing Change Date: 03/27/18 Left Ankle Wound Staging: Unstageable Wound Assessment: Ongoing Wound Type: Pressure Injury Is This a Chronic Wound: Yes Requested from Provider a Wound Care Consult: No Length: 1.4 Width: 1.2 Depth: 0 (eschar) Wound Bed Appearance: Necrotic Surrounding Tissue Temperature: Cool Drainage Description: Serosanguinous Drainage Amount: Scant Drainage Odor: No Odor Dressing Status: Changed Wound Packing Type: Gauze Roll Primary Dressing: Absorbant Pad Wound Dressing Change Date: 03/27/18 Left Heel Wound Staging: Stage III Wound Assessment: Ongoing Wound Type: Pressure Injury Is This a Chronic Wound: Yes Requested from Provider a Wound Care Consult: Yes Length: 4.4 Width: 5.0 Depth: 0.7 Wound Bed Appearance: [place], Red Surrounding Tissue Appearance: [place] Surrounding Tissue Temperature: Warm Drainage Description: Serosanguinous Drainage Amount: Moderate Drainage Odor: No Odor Dressing Status: Changed Cleansing Solution: Saline Primary Dressing: Absorbant Pad Cover Dressing: Gauze Roll/Wrap Tape Type: Paper Wound Dressing Change Date: 03/27/18 Right lateral Foot Wound Staging: Stage II Wound Assessment: Ongoing Wound Type: Pressure Injury Is This a Chronic Wound: Yes Requested from Provider a Wound Care Consult: No Length: 3.8 Width: 2.7 Depth: 0.2 Wound Bed Appearance: [place], Red Surrounding Tissue Temperature: Warm Drainage Description: Serosanguinous Drainage Amount: Minimal Drainage Odor: No Odor Dressing Status: Changed Cleansing Solution: Saline Primary Dressing: Absorbant Pad Cover Dressing: Gauze Roll/Wrap Tape Type: Paper Wound Dressing Change Date: 03/27/18 - Additional Information Patient was seen today by senior mortgage underwriter for wound management.Patient alert in bed in no acute distress.Dressings removed from bilateral lower extremities with no difficulty.Wounds cleansed with normal saline pat dry patient noted to have diffuse pressure injuries to lateral extremities.See notes for documentation.Wound are characteristic of wheel chair legs device related pressure injuries.Patient sates he is wheelchair penn and his wheelchair gives him all these sores.Design Maintenance Engineer will reach out to case management. Incision - Patient Status Premedicated for Pain Prior to Dressing Change: No
--- NOTE | 2018-03-27 19:03 | ECG ---
Date Performed: 03/26/2018 Time Performed: 16:20:22 PTAGE: 57 years EKG: Sinus rhythm WITH SHORT DE INTERVAL ST DEVIATION AND MODERATE T-WAVE ABNORMALITY, CONSIDER ANTEROLATERAL ISCHEMIA ST DEVIATION AND MODERATE T-WAVE ABNORMALITY, CONSIDER INFERIOR ISCHEMIA ABNORMAL ECG PREVIOUS TRACING : 03/26/2018 09.55 Since the previous tracing, no significant change noted DOCTOR: Anton Bhatti Interpretating Date/Time 03/27/2018 19:01:49
[2018-03-27] MEDS: Dextrose 5%/NaCl 0.9% Inj 1,000 ML IV.CONT SCH (21:15)
[2018-03-27] MEDS: Sodium Chloride 0.45 % Inj 1,000 ML IV.CONT SCH ×2 (21:15→21:16)
[2018-03-27 22:16] LABS: Hemoglobin A1c 12.2 % (4.3-6.0)
[2018-03-28] MEDS: Chlorhexidine Gluconate 2% 1 Pack (2 Cloths) TOPICAL SCH (04:16)
[2018-03-28] MEDS: Insulin NovoLOG Aspart Correctional Sugar Inj SQ SCH ×4 (07:39→20:04)
[2018-03-28 08:36] LABS: Baso # (Auto) 0.1 th/mm3 (0.0-0.2); Baso % (Auto) 0.8 % (0.0-2.0); Eos # (Auto) 0.4 th/mm3 (0.0-0.4); Eos % (Auto) 3.4 % (0.0-4.0); Hematocrit 35.8 % (39.0-51.0); Hemoglobin 12.2 gm/dL (13.0-17.0); Lymph # (Auto) 2.2 th/mm3 (1.0-4.8); Lymph % (Auto) 19.1 % (9.0-44.0); Mean Corpuscular HGB Conc 34.1 % (32.0-36.0); Mean Corpuscular Volume 82.1 fL (80.0-100.0); Mean Platelet Volume 8.4 fL (7.0-11.0); Mono # (Auto) 0.6 th/mm3 (0.0-0.9); Mono % (Auto) 4.9 % (0.0-8.0); Neut # (Auto) 8.5 th/mm3 (1.8-7.7); Neut % (Auto) 71.8 % (16.0-70.0); Platelet Count 367 th/mm3 (150-450); Red Blood Count 4.36 mil/mm3 (4.50-5.90); Red Cell Distribution Width 13.7 % (11.6-17.2); White Blood Count 11.8 th/mm3 (4.0-11.0)
[2018-03-28 09:03] LABS: Alanine Aminotransferase 13 U/L (12-78); Albumin 1.7 g/dL (3.4-5.0); Anion Gap 8 meq/L (5-15); Aspartate Aminotransferase 14 U/L (15-37); Blood Urea Nitrogen 31 mg/dL (7-18); Calcium 7.7 mg/dL (8.5-10.1); Carbon Dioxide 28.2 meq/L (21.0-32.0); Chloride 104 meq/L (98-107); Glomerular Filtration Rate 45 mL/min (>89); Glucose,Random 92 mg/dL (74-106); Potassium 3.3 meq/L (3.5-5.1); Sodium 140 meq/L (136-145)
[2018-03-28 09:06] LABS: Alkaline Phosphatase 151 U/L (45-117); Total Protein 6.2 g/dL (6.4-8.2)
[2018-03-28] MEDS: Metoprolol Tartrate 50 MG Tablet PO SCH (09:25)
[2018-03-28] MEDS: Collagenase Oint 30 GM Tube TOPICAL SCH (09:25)
[2018-03-28] MEDS: Lisinopril 10 MG Tablet PO SCH (09:25)
--- NOTE | 2018-03-28 11:50 | P.PNIM ---
Subjective Interval history: Patient continues to have hematuria today. We discussed the lung mass findings. He wants to proceed with biopsy. Physical Exam Vital signs: Vital Signs 03/27/18 12:00 03/27/18 13:52 03/27/18 16:00 Temperature 98.6 F 98.5 F 98.9 F Pulse Rate 78 77 81 Respiratory Rate 22 20 20 Blood Pressure 122/64 106/60 100/54 L Pulse Oximetry 99 100 98 03/27/18 20:00 03/28/18 00:00 03/28/18 04:00 Temperature 97.6 F 97.9 F Pulse Rate 53 L 84 Respiratory Rate 18 15 18 Blood Pressure 167/68 H 100/57 L Pulse Oximetry 95 100 03/28/18 08:13 Temperature 98.8 F Pulse Rate 87 Respiratory Rate 16 Blood Pressure 103/52 L Pulse Oximetry 99 Intake & Output 03/27/18 03/28/18 03/28/18 18:59 06:59 18:59 Intake Total 240 / 240 240 / 240 Output Total 1600 / 1600 700 / 700 Balance -1360 / -1360 -460 / -460 Weight 55.8 kg 55.9 kg Intake: Oral 240 / 240 240 / 240 Output: Urine 700 / 700 Urine Amount (Catheter) 1600 / 1600 Indwelling Urethral Catheter 1600 / 1600 Other: Date of Last Bowel Movement 03/25/18 03/25/18 03/25/18 Narrative: GENERAL: NAD, A&Ox3 HEAD: Normocephalic. NECK: Supple, trachea midline. No lymphadenopathy. EYES: No scleral icterus. No injection or drainage. CARDIOVASCULAR: Regular rate and rhythm without murmurs, gallops, or rubs. RESPIRATORY: Breath sounds equal bilaterally. No accessory muscle use. GASTROINTESTINAL: Abdomen soft, non-tender, nondistended. MUSCULOSKELETAL: No cyanosis, or edema. Bilateral foot wound dressing clean and dry. NEURO: No focal neurological deficits. Chronic lower extremity weakness. - Urinary Catheter Management Indwelling Urethral Catheter Cath placed during this visit: yes Reason for continuing: Chronic Urinary Retention Insertion date: 03/26/18 Insertion time: 14:00 Results - Labs CBC & Chem 7: 03/28/18 08:25 03/28/18 08:25 Laboratory Results - last 24 hr 03/26/18 03/27/18 03/27/18 10:15 11:18 11:55 WBC RBC Hgb Hct MCV MCH MCHC RDW Plt Count MPV Neut % (Auto) Lymph % (Auto) [place] % (Auto) Eos % (Auto) Baso % (Auto) Neut # (Auto) Lymph # (Auto) [place] # (Auto) Eos # (Auto) Baso # (Auto) WBC Differential Differential Comment Sodium Potassium 3.7 D Chloride Carbon Dioxide Anion Gap BUN Creatinine Estimated GFR POC Glucose 365 H Random Glucose Hemoglobin A1c 12.2 H Calcium Total Bilirubin AST ALT Alkaline Phosphatase Total Protein Albumin 03/27/18 03/27/18 03/28/18 16:21 21:33 07:20 WBC RBC Hgb Hct MCV MCH MCHC RDW Plt Count MPV Neut % (Auto) Lymph % (Auto) [place] % (Auto) Eos % (Auto) Baso % (Auto) Neut # (Auto) Lymph # (Auto) [place] # (Auto) Eos # (Auto) Baso # (Auto) WBC Differential Differential Comment Sodium Potassium Chloride Carbon Dioxide Anion Gap BUN Creatinine Estimated GFR POC Glucose 292 H 160 H 77 Random Glucose Hemoglobin A1c Calcium Total Bilirubin AST ALT Alkaline Phosphatase Total Protein Albumin 03/28/18 03/28/18 03/28/18 08:25 08:25 11:42 WBC 11.8 H RBC 4.36 L Hgb 12.2 L Hct 35.8 L MCV 82.1 MCH 28.0 MCHC 34.1 RDW 13.7 Plt Count 367 MPV 8.4 Neut % (Auto) 71.8 H Lymph % (Auto) 19.1 [place] % (Auto) 4.9 Eos % (Auto) 3.4 Baso % (Auto) 0.8 Neut # (Auto) 8.5 H Lymph # (Auto) 2.2 [place] # (Auto) 0.6 Eos # (Auto) 0.4 Baso # (Auto) 0.1 WBC Differential . Differential Comment Auto diff final Sodium 140 D Potassium 3.3 L Chloride 104 Carbon Dioxide 28.2 Anion Gap 8 BUN 31 H Creatinine 1.59 H Estimated GFR 45 L POC Glucose 139 H Random Glucose 92 Hemoglobin A1c Calcium 7.7 L Total Bilirubin 0.2 AST 14 L ALT 13 Alkaline Phosphatase 151 H Total Protein 6.2 L D Albumin 1.7 L Microbiology 03/26/18 10:50 Clean Catch Urine Urine Culture - Final 50-100,000 cfu/mL mixed sravan (probable contaminants ) Assessment and Plan - Plan 57 year old male admitted with Diabetic HHS. Hematuria Heparin discontinued. Hold Plavix Follow for improvement hematuria Remove Pandey catheter once hematuria decreases Diabetic HHS IV insulin discontinued Diabetic diet Insulin sliding scale Management adjust baseline NPH Lung Mass -Suspicious for bronchogenic carcinoma. Lifelong smoker. - IR for biopsy. Consult pulmonology for assistance. Hypokalemia Follow electrolytes Replace with IV fluid. Continue to monitor Bilateral Foot Wounds/MRSA Previously treated as an outpatient Continue inpatient care Wound care following. 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
[2018-03-28] MEDS: KCL 20 mEq/NACL 0.45% Inj 1,000 ML IV.CONT SCH (12:39)
--- NOTE | 2018-03-28 13:03 | MB ---
cc: Anat Cruz MD DATE: 03/28/2018 REASON FOR CONSULTATION: Lung nodule. HISTORY OF PRESENT ILLNESS: This is a 57-year-old white male who has been admitted with generalized weakness and a history of diabetes, has had a longstanding history of [id number] since 2010 with chronic weakness and paralysis of his lower extremities. The patient was admitted for workup and a CT of the chest was done, which showed a spiculated 2.4 cm mass in the left upper zone and evidence of COPD. The patient has had a cough and some shortness of breath and has a longstanding history of smoking for over 40 years. He denies any hemoptysis, but has had some weight loss. He has had chronic ulcerations of his skin of the lower extremities and has been treated for MRSA in the past. There is a longstanding history of diabetes mellitus type 2. PAST MEDICAL HISTORY: Other past history has included Guillian-Miller syndrome, history of hypertension and hyperlipidemia. PAST SURGICAL HISTORY: Includes coronary artery bypass grafting x3. FAMILY HISTORY: Significant for heart disease and diabetes in his mother, father also of heart trouble. HABITS: The patient smoked 1 pack per day for 45 years and quit a month ago. No alcohol use. ALLERGIES: NO KNOWN DRUG ALLERGIES LISTED. REVIEW OF SYSTEMS: The patient has lost weight. He has dizziness, postnasal drip, cough and denies any chest pain. He has no abdominal pain, nausea. He has weakness of his lower extremities and joint pains and has had skin ulcerations. He has some anxiety and depression. PHYSICAL EXAMINATION: GENERAL: This thinly built middle-aged white male who is pale, alert, in no acute distress. VITAL SIGNS: Blood pressure 110/70, pulse is 92, respirations are 16, temperature 97.5. HEENT: Head is normocephalic. Pupils are reactive. Tongue is moist. Nasal mucosa edematous. Throat injected. NECK: Supple, no bruits or thyroid enlargement. CHEST: Distant breath sounds with expiratory wheezes bilaterally. No crackles. HEART: Sounds are regular, S1 and S2. No murmur. ABDOMEN: Soft, protuberant, no mass. No organomegaly. EXTREMITIES: Dressings over the feet and ankles with multiple ulcerations; muscle wasting of the lower extremities, decreased pulses. NEUROLOGIC: Weakness of the lower extremities with cranial nerves grossly intact. RECTAL: Deferred. IMPRESSION: 1. Chronic obstructive pulmonary disease and emphysema. 2. Left upper lobe lung nodule, rule out malignancy. 3. Diabetes mellitus type 2. 4. History of Guillain-Miller syndrome with lower extremity weakness. 5. Skin ulcerations with methicillin-resistant Staphylococcus aureus. PLAN: The patient will be sent for a pulmonary function study. Nebulized DuoNeb solution added q.i.d. We will get a CT-guided needle biopsy of the left upper lobe lung mass and the patient may need a PET/CT as an outpatient as well and further evaluation including resection could be considered depending on the biopsy results. Thank you Dr. Thibodeaux for this consultation. Anat Cruz MD VJD/torie , 12:18 PM , 12:29 PM
[2018-03-28 14:35] LABS: Activated Partial Thrombo Time 26.4 sec (24.3-30.1); INR 1.1 Ratio; Prothrombin Time 11.1 sec (9.8-11.6)
[2018-03-29] MEDS: Chlorhexidine Gluconate 2% 1 Pack (2 Cloths) TOPICAL SCH (04:08)
[2018-03-29] MEDS: KCL 20 mEq/NACL 0.45% Inj 1,000 ML IV.CONT SCH ×2 (07:10→09:06)
[2018-03-29 07:17] LABS: Hematocrit 34.6 % (39.0-51.0); Hemoglobin 11.9 gm/dL (13.0-17.0); Mean Corpuscular HGB Conc 34.4 % (32.0-36.0); Mean Corpuscular Hemoglobin 28.2 pg (27.0-34.0); Mean Platelet Volume 8.5 fL (7.0-11.0); Platelet Count 334 th/mm3 (150-450); Red Blood Count 4.22 mil/mm3 (4.50-5.90); Red Cell Distribution Width 13.9 % (11.6-17.2); White Blood Count 11.9 th/mm3 (4.0-11.0)
[2018-03-29 07:52] LABS: Calcium 7.3 mg/dL (8.5-10.1); Carbon Dioxide 26.2 meq/L (21.0-32.0); Potassium 3.6 meq/L (3.5-5.1)
[2018-03-29] MEDS: Insulin NovoLOG Aspart Correctional Sugar Inj SQ SCH ×2 (09:05→11:41)
[2018-03-29] MEDS: Metoprolol Tartrate 50 MG Tablet PO SCH (09:06)
[2018-03-29] MEDS: Lisinopril 10 MG Tablet PO SCH (09:06)
[2018-03-29] MEDS: Collagenase Oint 30 GM Tube TOPICAL SCH (09:06)
--- NOTE | 2018-03-29 14:24 | P.DCO ---
- Physical Therapy Order: Evaluate and treat, Improve ambulation, Strength and gait training - Home Health Nursing Order: Medical education, Signs/symptoms of disease process, Diabetic education , Medication education-adverse effect, Nursing assessment with vital signs - Certification I have seen patient Yobany Driscoll on 03/29/18. My clinical findings support the need for the requested home health care services because: Deconditioned with increased weakness, Medication compliance is questionable I certify that my clinical findings support that this patient is homebound because: Unsafe to leave home unassisted
--- NOTE | 2018-03-29 14:32 | P.DS ---
Date of admission: 03/26/18 11:57 Primary care physician: UNKNOWN Brief History from admission: HPI from the admitting physician: Mr. Driscoll is a 57-year-old male. 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 At baseline he has bilateral lower extremity paralysis and chronic Guillain-Pickard syndrome for 11 years. Workup has also revealed a chest mass which is spiculated and concerning for metastatic disease. Chest mass measures approximately 2 cm in diameter. Patient reports that his brother has pulmonary nodules. He is a type II diabetic. He cannot recall another episode like this where he had to be hospitalized for his blood sugars. Patient update on day of discharge: Patient reports he is feeling great today. He wants to go home. He states he will come back for the lung biopsy. DS: Diagnosis - Discharge Diagnosis (1) Diabetic hyperosmolar non-ketotic state Status: Acute (2) Guillain Pickard syndrome Status: Acute (3) Wound of lower extremity Status: Acute DS: Medications - Discharge Medications Prescriptions: insulin NPH isoph U-100 human [Novolin N NPH U-100 Insulin] 15 units SUB-Q BID@ 0800,1700 30 Days ml DS: Summary Hospital Course: 57 year old male admitted with Diabetic HHS. The patient was admitted and treated with IV insulin. This was discontinued and he was transitioned to NPH. Suspect noncompliance as the main issue. Hemoglobin A1c of 12. He is discharged on NPH with home health. The patient also experienced hematuria during his hospitalization. Heparin discontinued and the hematuria resolved. The patient was found to have a lung mass that is suspicious for bronchogenic carcinoma. He is a lifelong smoker. He needs a biopsy of the lesion. Since he has been on Plavix, this cannot be done immediately. He is scheduled for outpatient biopsy on Saturday. Other conditions treated and include: Hypokalemia Follow electrolytes Replace with IV fluid. Continue to monitor Bilateral Foot Wounds/MRSA Previously treated as an outpatient Continue inpatient care Wound care following. Guillain Pickard syndrome Chronic Bilateral Lower Extremity Paralysis Supportive Care Patient does not feel these conditions are exacerbated in any way High cholesterol Follow as an outpatient Continue baseline treatment Hypertension Continue baseline treatments - Time Spent with Patient Total time spent providing and/or coordinating discharge services: Greater than 30 minutes - Quality: VTE Deep Vein Thrombosis/Pulmonary Embolism Present on Admission: No Exam Vital signs: Vital Signs 03/28/18 16:14 03/28/18 20:00 03/29/18 00:00 Temperature 99.3 F 99 F 98.6 F Pulse Rate 84 86 86 Respiratory Rate 18 Blood Pressure 97/54 L 106/56 L 104/55 L Pulse Oximetry 90 L 99 98 03/29/18 04:00 03/29/18 07:43 03/29/18 12:00 Temperature 98.7 F 98.1 F 97.9 F Pulse Rate 80 80 80 Respiratory Rate 18 Blood Pressure 106/51 L 113/58 L 116/56 L Pulse Oximetry 97 100 98 Intake & Output 03/28/18 03/29/18 03/29/18 18:59 06:59 18:59 Intake Total 780 / 780 1000 / 1000 200 / 200 Output Total 900 / 900 1550 / 1550 Balance -120 / -120 -550 / -550 200 / 200 Weight 55.5 kg Intake: IV 1000 / 1000 200 / 200 Potassium Chlor 20 mEq/NACL 0. 1000 / 1000 200 / 200 45% Inj 1,000 ML @ 100 mls/hr IV.CONT .Q10H [facility] Rx#:[id number] Oral 780 / 780 Output: Urine 200 / 200 900 / 900 Urine Amount (Catheter) 700 / 700 650 / 650 Indwelling Urethral Catheter 700 / 700 650 / 650 Other: Date of Last Bowel Movement 03/25/18 # Bowel Movements 2 1 Narrative: GENERAL: NAD, A&Ox3 HEAD: Normocephalic. NECK: Supple, trachea midline. No lymphadenopathy. EYES: No scleral icterus. No injection or drainage. CARDIOVASCULAR: Regular rate and rhythm without murmurs, gallops, or rubs. RESPIRATORY: Breath sounds equal bilaterally. No accessory muscle use. GASTROINTESTINAL: Abdomen soft, non-tender, nondistended. MUSCULOSKELETAL: No cyanosis, or edema. Bilateral foot wound dressing clean and dry. NEURO: No focal neurological deficits. Chronic lower extremity weakness. Results Procedures completed during hospitalization: None Labs on day of discharge: Labs from last 24 hours 03/29/18 03/29/18 03/29/18 11:05 06:58 06:46 WBC RBC Hgb Hct MCV MCH MCHC RDW Plt Count MPV PT INR APTT Sodium 140 Potassium 3.6 Chloride 104 Carbon Dioxide 26.2 Anion Gap 10 BUN 32 H Creatinine 1.57 H Estimated GFR 46 L POC Glucose 230 H 155 H Random Glucose 129 H Calcium 7.3 L* Prot Corrected Calcium 7.9 L Total Protein 6.0 L 03/29/18 03/28/18 03/28/18 06:46 20:02 16:25 WBC 11.9 H RBC 4.22 L Hgb 11.9 L Hct 34.6 L MCV 82.0 MCH 28.2 MCHC 34.4 RDW 13.9 Plt Count 334 MPV 8.5 PT INR APTT Sodium Potassium Chloride Carbon Dioxide Anion Gap BUN Creatinine Estimated GFR POC Glucose 149 H 249 H Random Glucose Calcium Prot Corrected Calcium Total Protein 03/28/18 13:15 WBC RBC Hgb Hct MCV MCH MCHC RDW Plt Count MPV PT 11.1 INR 1.1 APTT 26.4 Sodium Potassium Chloride Carbon Dioxide Anion Gap BUN Creatinine Estimated GFR POC Glucose Random Glucose Calcium Prot Corrected Calcium Total Protein - Impressions ITS Impressions Chest X-Ray 03/26/18 09:57 CONCLUSION: Faint nodular density in the left upper lobe; further evaluation with CT recommended. No evidence of acute cardiopulmonary process. Status post CABG Chest CT 03/26/18 10:59 CONCLUSION: 1. Spiculated left upper lobe mass accounts for the density noted on the recent chest x-ray. This is concerning for primary bronchogenic neoplasm until proven otherwise. Associated mediastinal adenopathy is identified and concerning for metastatic disease. 2. Emphysema. 3. Extensive atherosclerosis. Abdomen/Pelvis CT 03/26/18 11:26 CONCLUSION: 1. Marked bilateral hydronephrosis and hydroureter with distended urinary bladder and prostatomegaly characteristic of bladder outlet obstruction. 2. No evidence of suspicious mass, lymphadenopathy or metastatic disease. Discharge Plan - Discharge Disposition Patient Disposition: W/Home Health Service - Discharge Condition Condition: Good - Discharge Order Discharge Orders: Discharge Order (Routine); Ordered 03/29/18 Ordered By: Steven Granados - Physicians Team Primary Care Provider: UNKNOWN, Attending Provider: Steven Granados Other Providers: [employer] ; Hector Weinberg MD
--- NOTE | 2018-03-29 15:17 | P.PN ---
Subjective Interval history: he is feeling OK. will go home today . CT biopsy will be done as OP in 5 days Physical Exam Vital signs: Vital Signs 03/28/18 16:14 03/28/18 20:00 03/29/18 00:00 Temperature 99.3 F 99 F 98.6 F Pulse Rate 84 86 86 Respiratory Rate 20 18 18 Blood Pressure 97/54 L 106/56 L 104/55 L Pulse Oximetry 90 L 99 98 03/29/18 04:00 03/29/18 07:43 03/29/18 12:00 Temperature 98.7 F 98.1 F 97.9 F Pulse Rate 80 80 80 Respiratory Rate 18 20 18 Blood Pressure 106/51 L 113/58 L 116/56 L Pulse Oximetry 97 100 98 Intake & Output 03/28/18 03/29/18 03/29/18 18:59 06:59 18:59 Intake Total 780 / 780 1000 / 1000 200 / 200 Output Total 900 / 900 1550 / 1550 Balance -120 / -120 -550 / -550 200 / 200 Weight 55.5 kg Intake: IV 1000 / 1000 200 / 200 Potassium Chlor 20 mEq/NACL 0. 1000 / 1000 200 / 200 45% Inj 1,000 ML @ 100 mls/hr IV.CONT .Q10H [facility] Rx#:[id number] Oral 780 / 780 Output: Urine 200 / 200 900 / 900 Urine Amount (Catheter) 700 / 700 650 / 650 Indwelling Urethral Catheter 700 / 700 650 / 650 Other: Date of Last Bowel Movement 03/25/18 # Bowel Movements 2 1 Narrative: GENERAL: Mid aged W/M in NAD, A&Ox3 HEAD: Normocephalic. NECK: Supple, trachea midline. No lymphadenopathy. EYES: No scleral icterus. No injection or drainage. CARDIOVASCULAR: Regular rate and rhythm without murmurs, gallops, or rubs. RESPIRATORY: Breath sounds equal bilaterally. No accessory muscle use. GASTROINTESTINAL: Abdomen soft, non-tender, nondistended. MUSCULOSKELETAL: No cyanosis, or edema. Bilateral foot wound dressing clean and dry. NEURO: No focal neurological deficits. Chronic lower extremity weakness. - Urinary Catheter Management Indwelling Urethral Catheter Cath placed during this visit: yes, but has since been removed by the nurse Reason for continuing: Not indwelling catheter Insertion date: 03/26/18 Insertion time: 14:00 Removal date: 03/29/18 Removal time: 14:40 Results - Labs CBC & Chem 7: 03/29/18 06:46 03/29/18 06:46 Laboratory Results - last 24 hr 03/28/18 03/28/18 03/29/18 16:25 20:02 06:46 WBC 11.9 H RBC 4.22 L Hgb 11.9 L Hct 34.6 L MCV 82.0 MCH 28.2 MCHC 34.4 RDW 13.9 Plt Count 334 MPV 8.5 Sodium Potassium Chloride Carbon Dioxide Anion Gap BUN Creatinine Estimated GFR POC Glucose 249 H 149 H Random Glucose Calcium Prot Corrected Calcium Total Protein 03/29/18 03/29/18 03/29/18 06:46 06:58 11:05 WBC RBC Hgb Hct MCV MCH MCHC RDW Plt Count MPV Sodium 140 Potassium 3.6 Chloride 104 Carbon Dioxide 26.2 Anion Gap 10 BUN 32 H Creatinine 1.57 H Estimated GFR 46 L POC Glucose 155 H 230 H Random Glucose 129 H Calcium 7.3 L* Prot Corrected Calcium 7.9 L Total Protein 6.0 L - Procedures None Assessment and Plan - Assessment (1) Lung nodule < 6cm on CT Code(s): R91.1 - Solitary pulmonary nodule Status: Acute (2) COPD (chronic obstructive pulmonary disease) Code(s): J44.9 - Chronic obstructive pulmonary disease, unspecified Status: Acute (3) Guillain Pickard syndrome Code(s): G61.0 - Guillain-Lerna syndrome Status: Acute (4) Wound of lower extremity Code(s): S81.809A - Unspecified open wound, unspecified lower leg, initial encounter Status: Acute (5) Diabetic hyperosmolar non-ketotic state Code(s): E11.00 - Type 2 diabetes mellitus with hyperosmolarity without nonketotic hyperglycemic-hyperosmolar coma ([facility]) Status: Acute - Plan 1. Will go home today 2. get CT needle biopsy of lung mass in 5 days 3. Symbicort 160/4.5 mcg , 2 puffs BID 4. Continue antibiotics 5. Will see as OP in 2 weeks
[2018-03-29 16:34] VITALS: BP 109/54; PULSE 87; RESP 20; TEMP 98.4; O2SAT 99
== END 2018-03-29 17:52 | disposition home health service (06) ==
LOC: NEPC 09:13 → NEDA 11:57 → HIMC 18:10 → N05 03-27 12:16
PROVIDERS: ADMIT Family Medicine; ATTEND Family Medicine

== ENCOUNTER 2018-05-25 09:12 | Inpatient (IN) ==
[2018-05-25] MEDS ORDERED: Vancomycin Inj 1,000 MG in Sodium Chlor 0.9% Inj 250 ML IV.SIG STA (09:50)
[2018-05-25] MEDS ORDERED: Piperacil/Tazo 4.5 GM Premix 4.5 GM/100 ML BAG IV.SIG STA (09:50)
--- NOTE | 2018-05-25 10:20 | ED ---
HPI General Chief Complaint: Wound/Laceration Stated Complaint: Right foot wound complaint Time Seen by Provider: 05/25/18 09:25 Source: patient and family Mode of arrival: wheelchair Limitations: no limitations History of Present Illness HPI narrative: Patient is a 58-year-old male, past medical history significant for diabetes is and hypertension, who presents with complaint of worsening wounds. 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 He has started to have drainage to his wounds on his feet and his home health tech told him to come here. He does not recall being on any antibiotics recently. He denies any pain over the foot wounds and states that that is essentially numb for him which is his baseline. No recent trauma. He has also had Guillain Pickard and does have persistent weakness particularly of the left lower extremity which is at his new baseline. Onset (ago): unknown Location: Reports other Place: Reports home Patient tetanus UTD: Yes Context: Reports other Treatments prior to arrival: Reports bandage Related Data Home Medications Medication Instructions Recorded Confirmed morphine 15 mg PO Q4-6H #0 03/26/18 05/25/18 insulin aspart U-100 [Novolog 15 unit SUBCUT BID 05/25/18 05/25/18 U-100 Insulin aspart] Allergies Allergy/AdvReac Type Severity Reaction Status Date / Time oxycodone AdvReac Intermediate Vomiting Verified 05/25/18 10:36 sodium bicarbonate AdvReac Intermediate Vomiting Verified 05/25/18 10:36 Review of Systems ROS: all other systems reviewed are negative [facility] Medical History Medical History Diabetes (Acute) Guillain Pickard syndrome (Acute) High cholesterol (Acute) Hypertension (Acute) Surgical History Surgical History Hx of CABG (Acute) Family History Family History Other Osteoarthritis Social History Social History Substance History: No History of Abuse Second Hand Smoke Exposure: Yes Smoking Status: Current every day smoker Tobacco Type: Cigarettes How Often Do You Have a Drink Containing Alcohol: Never Recent Travel in [place] within the Last 8 Weeks: No Recent Out of Country Travel within the Last 8 Weeks: No Exam Narrative Exam Narrative: GENERAL: Well-appearing male in no acute distress SKIN: Focused skin assessment warm/dry. Wounds to bilateral feet with purulent drainage. Stage III ulcer to the sacrum without drainage. Previous toe ampurations. HEAD: Atraumatic. Normocephalic. EYES: Pupils equal and round. No scleral icterus. No injection or drainage. ENT: No nasal bleeding or discharge. Mucous membranes pink and moist. NECK: Trachea midline. No JVD. CARDIOVASCULAR: Regular rate and rhythm. No murmur appreciated. RESPIRATORY: No accessory muscle use. Clear to auscultation. Breath sounds equal bilaterally. GASTROINTESTINAL: Abdomen soft, non-tender, nondistended. Hepatic and splenic margins not palpable. MUSCULOSKELETAL: No obvious deformities. No clubbing. No cyanosis. No edema. NEUROLOGICAL: Awake and alert. No obvious cranial nerve deficits. Weakness of the left lower extremity which she states is his baseline. Normal speech. PSYCHIATRIC: Appropriate mood and affect; insight and judgment normal. Course Initial Documented Vital Signs Temperature 98.4 F 05/25/18 09:14 Pulse Rate 95 H 05/25/18 09:14 Respiratory Rate 14 05/25/18 09:14 Blood Pressure 111/57 L 05/25/18 09:14 Pulse Oximetry 100 05/25/18 09:14 Last Documented Vital Signs Temperature 98.4 F 05/25/18 09:14 Pulse Rate 95 H 05/25/18 09:14 Respiratory Rate 14 05/25/18 09:14 Blood Pressure 111/57 L 05/25/18 09:14 Pulse Oximetry 98 05/25/18 10:00 Medical Decision Making MDM Narrative Medical decision making narrative: Patient is a 58-year-old male who presents with worsening of some of his chronic diabetic foot wounds. He has purulent drainage from bilateral feet. He is hemodynamically stable and without signs of sepsis. ESR and CRP are markedly elevated and he has been given antibiotics empirically for his diabetic foot wounds. I spoke with the multifold operator on-call whom asked for this to be routine consult. I then spoke with the admitting physician who agreed to admission. Medical Screen Exam Complete: Yes Emergency Medical Condition: Yes Differential Diagnosis Differential Diagnosis: Differential diagnosis includes but is not limited to osteomyelitis, diabetic foot ulcer, necrotizing fasciitis. Medical Records Medical records reviewed: Yes I reviewed the patient's medical records. Lab Data Lab results reviewed: Yes I reviewed the patient's lab results. Result diagrams: 05/25/18 09:50 05/25/18 09:50 Lab Results 05/25/18 05/25/18 05/25/18 Range/Units 09:50 09:50 09:50 WBC 8.5 (4.0-11.0) th/mm3 RBC 3.87 L (4.50-5.90) mil/mm3 Hgb 11.4 L (13.0-17.0) gm/dL Hct 32.0 L (39.0-51.0) % MCV 82.7 (80.0-100.0) fL MCH 29.4 (27.0-34.0) pg MCHC 35.6 (32.0-36.0) % RDW 14.3 (11.6-17.2) % Plt Count 383 (150-450) th/mm3 MPV 7.7 (7.0-11.0) fL Neut % (Auto) 69.3 (16.0-70.0) % Lymph % (Auto) 20.7 (9.0-44.0) % Pierce % (Auto) 6.6 (0.0-8.0) % Eos % (Auto) 2.3 (0.0-4.0) % Baso % (Auto) 1.1 (0.0-2.0) % Neut # (Auto) 5.9 (1.8-7.7) th/mm3 Lymph # (Auto) 1.8 (1.0-4.8) th/mm3 Pierce # (Auto) 0.6 (0.0-0.9) th/mm3 Eos # (Auto) 0.2 (0.0-0.4) th/mm3 Baso # (Auto) 0.1 (0.0-0.2) th/mm3 WBC Differential . Differential Comment Auto diff final ESR 120 H (0-20) mm/hr Sodium 136 (136-145) meq/L Potassium 4.3 (3.5-5.1) meq/L Chloride 100 (98-107) meq/L Carbon Dioxide 28.1 (21.0-32.0) meq/L Anion Gap 8 (5-15) meq/L BUN 37 H (7-18) mg/dL Creatinine 1.46 H (0.60-1.30) mg/dL Estimated GFR 50 L (>89) mL/min Random Glucose 237 H (74-106) mg/dL Calcium 8.6 (8.5-10.1) mg/dL C-Reactive Protein 3.27 H (0.00-0.30) mg/dL Imaging Data Attestation: I personally reviewed and interpreted this imaging study as follows : Radiologist's impression: Foot X-Ray 05/25/18 09:48 CONCLUSION: Soft tissue ulceration, diffuse bone demineralization and remote postsurgical changes. Foot X-Ray 05/25/18 09:48 CONCLUSION: Diffuse bone demineralization and ulceration of the soft tissues as above. Discharge Plan Discharge Disposition Patient Disposition: 30 Still Patient Discharge Condition Condition: Stable Discharge Details Diagnosis: Infected open wound Physicians Team ED Provider: Rufina Corley Primary Care Provider: UNKNOWN, Rxs /Orders / Referrals /Forms Prescriptions: No Action morphine 30 mg Tablet 15 mg PO Q4-6H Qty: 0 RF: 0 insulin aspart U-100 [Novolog U-100 Insulin aspart] 100 unit/mL Solution 15 unit SUBCUT BID RF: 0 Status ED Status: With Doctor
[2018-05-25 10:39] LABS: Baso # (Auto) 0.1 th/mm3 (0.0-0.2); Baso % (Auto) 1.1 % (0.0-2.0); Eos # (Auto) 0.2 th/mm3 (0.0-0.4); Eos % (Auto) 2.3 % (0.0-4.0); Hemoglobin 11.4 gm/dL (13.0-17.0); Lymph # (Auto) 1.8 th/mm3 (1.0-4.8); Lymph % (Auto) 20.7 % (9.0-44.0); Mean Corpuscular HGB Conc 35.6 % (32.0-36.0); Mean Corpuscular Hemoglobin 29.4 pg (27.0-34.0); Mean Corpuscular Volume 82.7 fL (80.0-100.0); Mean Platelet Volume 7.7 fL (7.0-11.0); Mono # (Auto) 0.6 th/mm3 (0.0-0.9); Mono % (Auto) 6.6 % (0.0-8.0); Neut # (Auto) 5.9 th/mm3 (1.8-7.7); Neut % (Auto) 69.3 % (16.0-70.0); Platelet Count 383 th/mm3 (150-450); Red Blood Count 3.87 mil/mm3 (4.50-5.90); Red Cell Distribution Width 14.3 % (11.6-17.2); White Blood Count 8.5 th/mm3 (4.0-11.0)
[2018-05-25 11:04] LABS: C-Reactive Protein 3.27 mg/dL (0.00-0.30); Calcium 8.6 mg/dL (8.5-10.1); Carbon Dioxide 28.1 meq/L (21.0-32.0); Potassium 4.3 meq/L (3.5-5.1)
--- NOTE | 2018-05-25 11:15 | XR ---
EXAM DATE: 05/25/2018 11:11 AM EST AGE/SEX: 58 years / Male INDICATIONS: Multiple ulcers on both feet with history of diabetes. CLINICAL DATA: This is the patient's initial encounter. Patient reports that signs and symptoms have been present for 4 - 6 months and indicates a pain score of 10/10. MEDICAL/SURGICAL HISTORY: Diabetes. . surgery for removal phalanx COMPARISON: [facility] – [place], FOOT COMPLETE RIGHT 3V, 05/25/2018. . FINDINGS: There is previous amputation of the first digit distal to the base of the first metatarsal, second di git distal to the metatarsal, and post surgical changes suspected of the fifth metatarsal distally, a nd fifth proximal phalanx. The bone density is diffusely diminished. There is ulceration of the soft tissues at the ankle laterally, at the posterior aspect of calcaneus, and dorsally overlying the meta tarsals. No obvious bony destruction is seen. CONCLUSION: Soft tissue ulceration, diffuse bone demineralization and remote postsurgical changes. Electronically signed by: Ammon Dekcer MD 05/25/2018 11:14 AM EST
--- NOTE | 2018-05-25 11:16 | XR ---
EXAM DATE: 05/25/2018 11:08 AM EST AGE/SEX: 58 years / Male INDICATIONS: Multiple wounds on right foot with history of diabetes. CLINICAL DATA: This is the patient's initial encounter. Patient reports that signs and symptoms have been present for 4 - 6 months and indicates a pain score of 10/10. MEDICAL/SURGICAL HISTORY: Diabetes. None. COMPARISON: [facility] – [place], FOOT COMPLETE LEFT 3V, 05/25/2018. . FINDINGS: The bone density is diffusely diminished. Plantar calcaneal spur. There is an ulcer seen of the soft tissues lateral to the fifth metatarsal with overlying bandaging. No obvious underlying bone destruct ion. CONCLUSION: Diffuse bone demineralization and ulceration of the soft tissues as above. Electronically signed by: Ammon Decker MD 05/25/2018 11:14 AM EST
[2018-05-25] MEDS ORDERED: Dextrose 50% in Water 50 ML Vial IV.PUSH PRN (12:08)
[2018-05-25] MEDS ORDERED: Acetaminophen 325 MG Tablet PO PRN (12:08)
[2018-05-25] MEDS ORDERED: Bisacodyl 10 MG Supp RECTAL PRN (12:08)
[2018-05-25] MEDS ORDERED: Naloxone Inj 0.4 MG/ML Vial IV.PUSH PRN (12:08)
[2018-05-25] MEDS: Sod Chloride 0.9% Inj 1,000 ML IV.CONT SCH (12:44)
[2018-05-25] MEDS: Morphine Sulfate Inj 2 MG/ML Vial IV.PUSH PRN ×2 (12:56→20:20)
--- NOTE | 2018-05-25 13:03 | P.HPIM ---
History of Present Illness Service: [facility] Primary Care Physician: UNKNOWN Chief Complaint: Bilateral foot wound History of Present Illness: This a 58-year-old male with past medical history significant for type 2 diabetes, hypertension, Montmorency Pickard syndrome, NM, and CVA multiple toe dissections, and foot ulcers. Presents the clinic today due to worsening ulcers on his feet bilaterally and his right foot is starting to drain purulent drainage. Because of this he decided to be evaluated. These wounds have been present for a very long time and he cannot give an exact timeline. He has chronic numbness in his feet bilaterally due to the diabetes. He also has residual left lower extremity weakness from his Guyon Pickard as well as some weakness in his hands bilaterally. - Diagnosis (1) Wound of lower extremity Review of Systems Constitutional: Reports anorexia, Reports lack of energy, Reports malaise, Reports weakness, Reports weight loss, Denies fever(s), Denies increased appetite, Denies night sweats, Denies weight gain Eyes: Denies blind spots, Denies blurry vision, Denies bulging eyes, Denies change in vision, Denies double vision, Denies discharge, Denies dry eyes, Denies floaters, Denies irritation, Denies itchy eyes, Denies loss of vision, Denies pain, Denies requires corrective lenses, Denies sensitivity to light, Denies other Ears, Nose, Mouth, and Throat: Reports neck pain, Denies abnormal hearing, Denies bleeding gums, Denies change in voice, Denies dental pain, Denies dry mouth, Denies mouth pain, Denies nasal congestion, Denies nasal discharge, Denies nose pain, Denies post nasal drip, Denies ringing in the ears, Denies sore throat, Denies throat swelling Cardiovascular: Reports foot swelling, Reports leg sores, Denies chest pain, Denies chest pain at rest, Denies excessive sweating, Denies shortness of breath , Denies shortness of breath when lying down Respiratory: Reports cough, Denies chest congestion, Denies coughing up blood, Denies pain with cough Gastrointestinal: Denies abdominal pain, Denies bloating, Denies cramping, Denies pain with swallowing, Denies vomiting Musculoskeletal: Reports abnormal walking, Reports back pain, Reports decreased muscle mass, Reports joint pain, Reports joint swelling, Reports muscle weakness , Reports neck pain, Reports numbness, Reports stiffness, Reports tingling Skin/Breast: Denies acne Neurologic: Denies abnormal hearing, Denies abnormal movements, Denies abnormal speech, Denies confusion, Denies dizziness, Denies seizure-like activity Psychiatric: Denies anxiety, Denies depression PMFSH - History History Provided By: Patient - Medical History Medical History: Medical History (Last Updated 05/25/18 @ 12:49 by Tito Paris MD) CVA (cerebral vascular accident) Myocardial infarct Toe amputation status Diabetes Guillain Pickard syndrome High cholesterol Hypertension - Surgical History Surgical History: Surgical History (Last Reviewed 05/25/18 @ 12:49 by Tito Paris MD) Hx of CABG - Family History Family History: Family History (Last Updated 05/25/18 @ 12:50 by Tito Paris MD) Other Diabetes Hypertension Osteoarthritis - Social History I have reviewed the patient's Social History: Yes - Tobacco History Second Hand Smoke Exposure: Yes Tobacco Use In Past 30 Days: Yes Smoking Status: Current every day smoker Tobacco Type: Cigarettes - Alcohol History How Often Do You Have a Drink Containing Alcohol: Never - Substance Use History Substance History: No History of Abuse - Travel History Recent Travel in the [place] Within the Last 8 Weeks: No Recent Travel Out of the Country Within the Last 8 Weeks: No - Immunization History Tetanus Immunization: >5 Years Medications and Allergies Active Medications: Active Medications Acetaminophen (Tylenol) 650 mg PO Q4H PRN PRN Reason: Temp > 100.4 Hydrocodone Bitart/Acetaminophen ([place] 5/325) 1 tab PO Q6H PRN PRN Reason: PAIN SCALE 1 TO 5 Hydrocodone Bitart/Acetaminophen ([place] 10/325) 1 tab PO Q6H PRN PRN Reason: PAIN SCALE 6 TO 10 Al Hydroxide/Mg Hydroxide (Milk Of Magnesia Liq) 30 ml PO Q12H PRN PRN Reason: Mild Constipation Bisacodyl (Dulcolax Supp) 10 mg RECTAL DAILY PRN PRN Reason: SEVERE CONSITIPATION Dextrose (D50w Vial) 50 ml IV.PUSH UNSCH PRN PRN Reason: PER HYPOGLYCEMIA PROTOCOL Glucagon (Glucagon Inj) 1 mg OTHER PRN PRN PRN Reason: for Hypoglycemia Protocol Sodium Chloride (Ns Inj) 1,000 mls @ 75 mls/hr IV.CONT .[id number] Insulin Aspart (Novolog Insulin Correctional Sugar Inj) 0 unit SQ ACHS NGOZI; Protocol Lactulose (Lactulose Liq) 30 ml PO DAILY PRN PRN Reason: SEVERE CONSITIPATION Morphine Sulfate (Morphine Inj) 2 mg IV.PUSH Q3H PRN PRN Reason: BREAKTHROUGH PAIN Naloxone HCl (Narcan Inj) 0.4 mg IV.PUSH UNSCH PRN PRN Reason: SEE LABEL COMMENTS Ondansetron HCl (Zofran Inj) 4 mg IV.PUSH Q6H PRN PRN Reason: NAUSEA OR VOMITING Senna/Docusate Sodium (Kate-Colace) 1 tab PO BID [facility] Sennosides (Senokot) 17.2 mg PO Q12H PRN PRN Reason: Moderate Constipation Allergies Allergy/AdvReac Type Severity Reaction Status Date / Time oxycodone AdvReac Intermediate Vomiting Verified 05/25/18 10:36 sodium bicarbonate AdvReac Intermediate Vomiting Verified 05/25/18 10:36 Home Medications Medication Instructions Recorded Confirmed Type morphine 15 mg PO Q4-6H #0 03/26/18 05/25/18 History insulin aspart U-100 [Novolog 15 unit SUBCUT BID 05/25/18 05/25/18 History U-100 Insulin aspart] Exam Vital signs: Vital Signs 05/25/18 09:14 05/25/18 10:00 Temperature 98.4 F Pulse Rate 95 H Respiratory Rate 14 Blood Pressure 111/57 L Pulse Oximetry 100 98 Intake & Output 05/24/18 05/25/18 05/25/18 18:59 06:59 18:59 Intake Total 350 / 350 Balance 350 / 350 Weight 68.039 kg Intake: IV 350 / 350 Zosyn 4.5 GM Premix 4.5 gm In 100 / 100 100 ml @ 200 mls/hr IV.SIG STAT STA Rx#:[id number] Vancomycin Inj 1,000 MG In NS 250 / 250 Inj 250 ML @ 250 mls/hr IV.SIG STAT STA Rx#:[id number] - Constitutional no acute distress, chronically ill appearing, cooperative - Routine HEENT Exam Head: Present: normocephalic, atraumatic Eye: Present: EOMI, PERRL ENT: Present: mucous membranes moist - Routine Neck Exam Present: supple, full ROM, trachea midline. Absent: carotid bruit, lymphadenopathy, tenderness - Routine Chest/Breast/Axilla Exam Chest wall: Absent: tenderness - Routine Respiratory Exam Present: CTA bilaterally. Absent: accessory muscle use - Routine Cardiovascular Exam Present: RRR - Routine Abdominal Exam Present: soft, normoactive bowel sounds. Absent: tenderness, distended - Routine Extremities Exam Present: tenderness. Absent: full ROM, joint swelling Comments: Multiple ulcers on his feet bilaterally on the lateral aspects of the feet bilaterally. Right worse than left. Right is draining serosanguineous pussy fluid. Previous toe amputation - Routine Skin Exam Present: wounds Comments: Multiple stage III ulcers - Routine Neurological Exam Present: alert, oriented X3, CN II-XII intact, motor deficit (Due to his Ross Pickard) Results - Labs CBC & Chem 7: 05/25/18 09:50 05/25/18 09:50 Labs: Short CBC 05/25/18 Range/Units 09:50 WBC 8.5 (4.0-11.0) th/mm3 Hgb 11.4 L (13.0-17.0) gm/dL Hct 32.0 L (39.0-51.0) % Plt Count 383 (150-450) th/mm3 BMP 05/25/18 09:50 Sodium 136 Potassium 4.3 Chloride 100 Carbon Dioxide 28.1 BUN 37 H Creatinine 1.46 H Calcium 8.6 - Imaging Impressions Foot X-Ray 05/25/18 09:48 CONCLUSION: Soft tissue ulceration, diffuse bone demineralization and remote postsurgical changes. Foot X-Ray 05/25/18 09:48 CONCLUSION: Diffuse bone demineralization and ulceration of the soft tissues as above. Caprini VTE Risk Assessment Caprini VTE Risk Assessment: Moderate/High Risk (score >= 2) (To likely surgery will do SCDs) Caprini Risk Assessment Model: Point Value = 1 Point Value = 2 Point Value = 3 Point Value = 5 Age 41-60 Minor surgery BMI > 25 kg/m2 Swollen legs Varicose veins or History of unexplained or recurrent spontaneous Oral contraceptives or hormone replacement Sepsis (< 1 month) Serious lung disease, including pneumonia (< 1 month) Abnormal pulmonary function Acute myocardial infarction Congestive heart failure (< 1 month) History of inflammatory bowel disease Medical patient at bed rest Age 61-74 Arthroscopic surgery Major open surgery (> 45 min) Laparoscopic surgery (> 45 min) Malignancy Confined to bed (> 72 hours) Immobilizing plaster cast Central venous access Age >= 75 History of VTE Family history of VTE Factor V Leiden Prothrombin [id number] Lupus anticoagulant Anticardiolipin antibodies Elevated serum homocysteine Heparin-induced thrombocytopenia Other congenital or acquired thrombophilia Stroke (< 1 month) Elective arthroplasty Hip, pelvis, or leg fracture Acute spinal cord injury (< 1 month) Prophylaxis Regimen: Total Risk Factor Score Risk Level Prophylaxis Regimen 0-1 Low Early ambulation 2 Moderate Order ONE of the following: *Sequential Compression Device (SCD) *Heparin 5000 units SQ BID 3-4 Higher Order ONE of the following medications: *Heparin 5000 units SQ TID *Enoxaparin/Lovenox 40 mg SQ daily (WT < 150 kg, CrCl > 30 mL/min) *Enoxaparin/Lovenox 30 mg SQ daily (WT < 150 kg, CrCl > 10-29 mL/min) *Enoxaparin/Lovenox 30 mg SQ BID (WT < 150 kg, CrCl > 30 mL/min) AND/OR *Sequential Compression Device (SCD) 5 or more Highest Order ONE of the following medications: *Heparin 5000 units SQ TID (Preferred with Epidurals) *Enoxaparin/Lovenox 40 mg SQ daily (WT < 150 kg, CrCl > 30 mL/min) *Enoxaparin/Lovenox 30 mg SQ daily (WT < 150 kg, CrCl > 10-29 mL/min) *Enoxaparin/Lovenox 30 mg SQ BID (WT < 150 kg, CrCl > 30 mL/min) AND *Sequential Compression Device (SCD) Assessment and Plan - Assessment (1) Wound of lower extremity Code(s): S81.809A - Unspecified open wound, unspecified lower leg, initial encounter Status: Acute - Plan This a 58-year-old male with past medical history significant for type 2 diabetes, hypertension, Montmorency Pickard syndrome, NM, and CVA multiple toe dissections, and foot ulcers. Being admitted due to the worsening bilateral foot ulcers. 1. Bilateral foot ulcers on the lateral aspect of his feet bilaterally right worse than left -Consult podiatry has been placed, recommendations appreciated -MRI pending -Continue Zosyn and vancomycin -Wound care consulted -Anticipate patient will need to go to the OR for further management 2. Type 2 diabetes -Insulin sliding scale in place -Monitor glucose per protocol 3. Chronic pain. Patient reports that he is on 15 mg of morphine 3 times a day I do not fully believe this and we are requesting the records for this. -Callaway for pain -Morphine for breakthrough pain -We will adjust once we retained further records 4. 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 DVT prophylaxis with SCDs as patient will likely require OR treatment for wounds. Diabetic diet anticipate n.p.o. for evaluation by podiatry Monitor electrodes placed accordingly PT has been consulted for evaluation Code Status: Full code Discharge Planning: Pending evaluation by podiatry
[2018-05-25] MEDS ORDERED: Gadobutrol PF 7.5 MMOL/7.5 ML Vial (for RAD) IV.SIG ONE (15:21)
--- NOTE | 2018-05-25 15:51 | MR ---
EXAM DATE: 05/25/2018 3:33 PM EST AGE/SEX: 58 years / Male INDICATIONS: Osteomyelitis. Bilateral lateral malleolus wounds. CLINICAL DATA: This is the patient's initial encounter. Patient reports that signs and symptoms have been present for 1 day and indicates a pain score of 0/10. MEDICAL/SURGICAL HISTORY: Diabetes mellitus type II. Guillain-Penasco syndrome. CABG. Peripheral vascular stents. Left great toe amputation. COMPARISON: No prior exams available for comparison. TECHNIQUE: Multiplanar, multisequence MRI examination was performed without contrast and after th e intravenous administration of 7 ml Gadavist (gadobutrol) single exam dose. FINDINGS: There is marrow edema and enhancement involving the lateral aspect of the cuboid and the fifth metata rsal, predominantly the proximal portion and midportion. Findings are characteristic of osteomyelitis . There is an ulceration overlying the skin of the fifth metatarsal region. There is edema in the for efoot. Incompletely visualized is a suspected fracture through the distal tibial plafond. Exam is deg raded by some motion artifact. There is a mild tenosynovitis of the flexor tendons. Benign-appearing cystic bone lesion seen in the calcaneus below the subtalar joint. CONCLUSION: 1. Osteomyelitis of the fifth metatarsal and lateral aspect of the cuboid bone with overlying cellul itis and ulceration. 2. Mild tenosynovitis of the flexor tendons. 3. Minimally displaced fracture through the tibial plafond ending at the apex of the talar dome. Electronically signed by: Juancho Reyes MD 05/25/2018 3:50 PM EST
--- NOTE | 2018-05-25 15:55 | MR ---
EXAM DATE: 05/25/2018 3:28 PM EST AGE/SEX: 58 years / Male INDICATIONS: Osteomyelitis. Bilateral lateral malleolus wounds. CLINICAL DATA: This is the patient's initial encounter. Patient reports that signs and symptoms have been present for 1 day and indicates a pain score of 0/10. MEDICAL/SURGICAL HISTORY: Diabetes mellitus type II. Guillain-Kirksey syndrome. CABG. Left Great toe amputation. Peripheral vascular stent. COMPARISON: No prior exams available for comparison. TECHNIQUE: Multiplanar, multisequence MRI examination was performed without contrast and after th e intravenous administration of 7 ml Gadavist (gadobutrol) single exam dose. FINDINGS: There is extensive marrow edema and marrow enhancement in the posterior calcaneus with overlying soft tissue ulceration. Findings are characteristic of osteomyelitis in the calcaneus. No other significa nt marrow signal abnormality is seen to suggest acute osteomyelitis. The great toe and distal first m etatarsal have been resected and portions of the distal fifth metatarsal and fifth toe is suspected. These are not well visualized due to motion artifact. CONCLUSION: 1. Osteomyelitis of the calcaneus posteriorly with overlying ulceration and cellulitis. There is als o abnormal signal at the plantar fascial and Achilles insertion sites, likely making these prone to r upture. Exam degraded by motion. Previous amputations as above. Electronically signed by: Juancho Reyes MD 05/25/2018 3:53 PM EST
[2018-05-25] MEDS: Insulin NovoLOG Aspart Correctional Sugar Inj SQ SCH ×2 (16:15→20:33)
[2018-05-25] MEDS: Senna/Docusate Sodium 8.6/50 MG Tablet PO SCH (20:20)
--- NOTE | 2018-05-25 20:31 | P.CONPOD ---
History of Present Illness Service: podiatry Consult date: 05/25/18 Reason for Consult: right and left foot/ankle ulcers Primary Care Provider: UNKNOWN Chief Complaint: Bilateral foot wound History of Present Illness: 58-year-old male states he has had right foot wounds for about a year and left heel / ankle wounds x about 6 months. he has been treated by someone in the [facility] and has had home health care, but moved to our area in the past few months. he says home health has come and has been using medihoney on the wounds. He is non-ambulatory in a wheelchair at the time. he has had issues with vascularity and has history of stent placement, per patient. he says they have not been examined in a while. He has also had Guillain Pickard and does have persistent weakness particularly of the left lower extremity which is at his new baseline. Review of Systems All other systems reviewed negative except as stated in HPI PMFSH - History History Provided By: Patient - Medical History Medical History: Medical History (Last Updated 05/25/18 @ 12:49 by Tito Paris MD) CVA (cerebral vascular accident) Myocardial infarct Toe amputation status Diabetes Guillain Pickard syndrome High cholesterol Hypertension - Surgical History Surgical History: Surgical History (Last Reviewed 05/25/18 @ 12:49 by Tito Paris MD) Hx of CABG - Family History Family History: Family History (Last Updated 05/25/18 @ 12:50 by Tito Paris MD) Other Diabetes Hypertension Osteoarthritis - Tobacco History Second Hand Smoke Exposure: Yes Tobacco Use In Past 30 Days: Yes Smoking Status: Current every day smoker Tobacco Type: Cigarettes - Alcohol History How Often Do You Have a Drink Containing Alcohol: Never - Substance Use History Substance History: No History of Abuse - Travel History Recent Travel in the [place] Within the Last 8 Weeks: No Recent Travel Out of the Country Within the Last 8 Weeks: No - Immunization History Tetanus Immunization: Unsure Hx Influenza Vaccine This Season: No Medications and Allergies Active Medications: Active Medications Acetaminophen (Tylenol) 650 mg PO Q4H PRN PRN Reason: Temp > 100.4 Hydrocodone Bitart/Acetaminophen ([place] 5/325) 1 tab PO Q6H PRN PRN Reason: PAIN SCALE 1 TO 5 Hydrocodone Bitart/Acetaminophen ([place] 10/325) 1 tab PO Q6H PRN PRN Reason: PAIN SCALE 6 TO 10 Last Admin: 05/25/18 16:36 Dose: 1 tab Al Hydroxide/Mg Hydroxide (Milk Of Magnesia Liq) 30 ml PO Q12H PRN PRN Reason: Mild Constipation Bisacodyl (Dulcolax Supp) 10 mg RECTAL DAILY PRN PRN Reason: SEVERE CONSITIPATION Dextrose (D50w Vial) 50 ml IV.PUSH UNSCH PRN PRN Reason: PER HYPOGLYCEMIA PROTOCOL Glucagon (Glucagon Inj) 1 mg OTHER PRN PRN PRN Reason: for Hypoglycemia Protocol Sodium Chloride (Ns Inj) 1,000 mls @ 75 mls/hr IV.CONT .[id number] Last Admin: 05/25/18 12:44 Dose: 75 mls/hr Insulin Aspart (Novolog Insulin Correctional Sugar Inj) 0 unit SQ ACHS [facility]; Protocol Last Admin: 05/25/18 16:15 Dose: Not Given Lactulose (Lactulose Liq) 30 ml PO DAILY PRN PRN Reason: SEVERE CONSITIPATION Morphine Sulfate (Morphine Inj) 2 mg IV.PUSH Q3H PRN PRN Reason: BREAKTHROUGH PAIN Last Admin: 05/25/18 12:56 Dose: 2 mg Naloxone HCl (Narcan Inj) 0.4 mg IV.PUSH UNSCH PRN PRN Reason: SEE LABEL COMMENTS Ondansetron HCl (Zofran Inj) 4 mg IV.PUSH Q6H PRN PRN Reason: NAUSEA OR VOMITING Senna/Docusate Sodium (Kate-Colace) 1 tab PO BID [facility] Sennosides (Senokot) 17.2 mg PO Q12H PRN PRN Reason: Moderate Constipation Allergies Allergy/AdvReac Type Severity Reaction Status Date / Time oxycodone AdvReac Intermediate Vomiting Verified 05/25/18 10:36 sodium bicarbonate AdvReac Intermediate Vomiting Verified 05/25/18 10:36 Home Medications Medication Instructions Recorded Confirmed Type morphine 15 mg PO Q4-6H #0 03/26/18 05/25/18 History insulin aspart U-100 [Novolog 15 unit SUBCUT BID 05/25/18 05/25/18 History U-100 Insulin aspart] Physical Exam Vital signs: Vital Signs 05/25/18 09:14 05/25/18 10:00 05/25/18 12:08 Temperature 98.4 F Pulse Rate 95 H 68 Respiratory Rate 14 18 Blood Pressure 111/57 L 146/68 H Pulse Oximetry 100 98 97 05/25/18 14:02 05/25/18 16:00 Temperature 97.8 F Pulse Rate 64 77 Respiratory Rate 18 20 Blood Pressure 134/79 130/61 Pulse Oximetry 97 100 Intake & Output 05/25/18 05/25/18 05/26/18 06:59 18:59 06:59 Intake Total 830 / 830 Balance 830 / 830 Weight 68.039 kg Intake: IV 350 / 350 Zosyn 4.5 GM Premix 4.5 gm In 100 / 100 100 ml @ 200 mls/hr IV.SIG STAT STA Rx#:[id number] Vancomycin Inj 1,000 MG In NS 250 / 250 Inj 250 ML @ 250 mls/hr IV.SIG STAT STA Rx#:[id number] Oral 480 / 480 Other: Date of Last Bowel Movement 05/25/18 Narrative: Right lateral midfoot with necrotic tissue present, down to level of bone. Stable appearing margins present. No erin purulence present. Left plantar heel with large granular wound, appears stable, as well. No purulence present. Left lateral malleolus with small area of necrotic tissue present, also with stable margins and no purulence present. History of amputations to left forefoot. Sensation absent to light touch bilaterally Results - Labs CBC & Chem 7: 05/25/18 09:50 05/25/18 09:50 Laboratory Results - last 24 hr 05/25/18 05/25/18 05/25/18 09:50 09:50 09:50 WBC 8.5 RBC 3.87 L Hgb 11.4 L Hct 32.0 L MCV 82.7 MCH 29.4 MCHC 35.6 RDW 14.3 Plt Count 383 MPV 7.7 Neut % (Auto) 69.3 Lymph % (Auto) 20.7 [place] % (Auto) 6.6 Eos % (Auto) 2.3 Baso % (Auto) 1.1 Neut # (Auto) 5.9 Lymph # (Auto) 1.8 [place] # (Auto) 0.6 Eos # (Auto) 0.2 Baso # (Auto) 0.1 WBC Differential . Differential Comment Auto diff final ESR 120 H Sodium 136 Potassium 4.3 Chloride 100 Carbon Dioxide 28.1 Anion Gap 8 BUN 37 H Creatinine 1.46 H Estimated GFR 50 L POC Glucose Random Glucose 237 H Calcium 8.6 C-Reactive Protein 3.27 H 05/25/18 16:06 WBC RBC Hgb Hct MCV MCH MCHC RDW Plt Count MPV Neut % (Auto) Lymph % (Auto) [place] % (Auto) Eos % (Auto) Baso % (Auto) Neut # (Auto) Lymph # (Auto) [place] # (Auto) Eos # (Auto) Baso # (Auto) WBC Differential Differential Comment ESR Sodium Potassium Chloride Carbon Dioxide Anion Gap BUN Creatinine Estimated GFR POC Glucose 120 H Random Glucose Calcium C-Reactive Protein - Imaging Impressions Foot MRI 05/25/18 00:00 CONCLUSION: 1. Osteomyelitis of the fifth metatarsal and lateral aspect of the cuboid bone with overlying cellulitis and ulceration. 2. Mild tenosynovitis of the flexor tendons. 3. Minimally displaced fracture through the tibial plafond ending at the apex of the talar dome. Foot MRI 05/25/18 00:00 CONCLUSION: 1. Osteomyelitis of the calcaneus posteriorly with overlying ulceration and cellulitis. There is also abnormal signal at the plantar fascial and Achilles insertion sites, likely making these prone to rupture. Exam degraded by motion. Previous amputations as above. Foot X-Ray 05/25/18 09:48 CONCLUSION: Soft tissue ulceration, diffuse bone demineralization and remote postsurgical changes. Foot X-Ray 05/25/18 09:48 CONCLUSION: Diffuse bone demineralization and ulceration of the soft tissues as above. Assessment and Plan - Assessment (1) Osteomyelitis of left foot Code(s): M86.9 - Osteomyelitis, unspecified Status: Acute (2) Osteomyelitis of right foot Code(s): M86.9 - Osteomyelitis, unspecified Status: Acute - Plan Vascular consult ordered first. All areas appear stable at this time. Discussed with patient that since he is nonambulatory, there may be a possibility for limb salvage options, pending vascular evaluation. Continue dressings as ordered with santyl and dry sterile dressing. Podiatry will follow
[2018-05-26 05:42] LABS: Baso # (Auto) 0.1 th/mm3 (0.0-0.2); Baso % (Auto) 1.4 % (0.0-2.0); Eos # (Auto) 0.3 th/mm3 (0.0-0.4); Eos % (Auto) 3.8 % (0.0-4.0); Hematocrit 30.2 % (39.0-51.0); Hemoglobin 10.2 gm/dL (13.0-17.0); Lymph # (Auto) 1.7 th/mm3 (1.0-4.8); Lymph % (Auto) 23.3 % (9.0-44.0); Mean Corpuscular HGB Conc 33.7 % (32.0-36.0); Mean Corpuscular Hemoglobin 28.1 pg (27.0-34.0); Mean Corpuscular Volume 83.3 fL (80.0-100.0); Mean Platelet Volume 7.7 fL (7.0-11.0); Mono # (Auto) 0.6 th/mm3 (0.0-0.9); Mono % (Auto) 8.2 % (0.0-8.0); Neut # (Auto) 4.7 th/mm3 (1.8-7.7); Neut % (Auto) 63.3 % (16.0-70.0); Platelet Count 336 th/mm3 (150-450); Red Blood Count 3.62 mil/mm3 (4.50-5.90); Red Cell Distribution Width 14.1 % (11.6-17.2); White Blood Count 7.4 th/mm3 (4.0-11.0)
[2018-05-26] MEDS: Sod Chloride 0.9% Inj 1,000 ML IV.CONT SCH (05:51)
[2018-05-26 06:20] LABS: Alanine Aminotransferase 31 U/L (12-78); Alkaline Phosphatase 392 U/L (45-117); Anion Gap 10 meq/L (5-15); Aspartate Aminotransferase 22 U/L (15-37); Blood Urea Nitrogen 33 mg/dL (7-18); Calcium 7.9 mg/dL (8.5-10.1); Carbon Dioxide 24.2 meq/L (21.0-32.0); Chloride 108 meq/L (98-107); Glomerular Filtration Rate 48 mL/min (>89); Glucose,Random 140 mg/dL (74-106); Potassium 4.1 meq/L (3.5-5.1); Sodium 142 meq/L (136-145); Total Protein 7.4 g/dL (6.4-8.2)
[2018-05-26] MEDS: Senna/Docusate Sodium 8.6/50 MG Tablet PO SCH ×2 (08:28→21:28)
[2018-05-26] MEDS: Collagenase Oint 30 GM Tube TOPICAL SCH (08:28)
[2018-05-26] MEDS: Insulin NovoLOG Aspart Correctional Sugar Inj SQ SCH ×4 (08:29→21:27)
--- NOTE | 2018-05-26 10:18 | P.PNWCN ---
Wound Care Nurse Consult Additional information: Patient was not seen by inpatient wound care for feet bilaterally. Doctor Radha podiatry has seen patient for these areas and has written orders for wound care. Please defer to podiatry for any issues that arise with wound care for these areas. Wound care inpatient is signing off.
--- NOTE | 2018-05-26 10:38 | P.CONVS ---
History of Present Illness Service: Vascular Consult date: 05/26/18 Reason for Consult: B LE wounds Primary Care Provider: UNKNOWN Chief Complaint: Bilateral foot wound History of Present Illness: 58 yo male who is non ambulatory and uses arms for transfer secondary to [place] since 2010. Has had B LE wounds for over a year. Has a history of B LE endovascular stenting elsewhere. Adm for worsening wounds. He doesn't use his legs. 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 High cholesterol Hypertension - Surgical History Surgical History: Surgical History (Last Reviewed 05/26/18 @ 10:34 by Moustapha Mckay MD) Hx of CABG - Family History Family History: Family History (Last Updated 05/25/18 @ 12:50 by Tito Paris MD) Other Diabetes Hypertension Osteoarthritis - Tobacco History Second Hand Smoke Exposure: Yes Tobacco Use In Past 30 Days: Yes Smoking Status: Current every day smoker Tobacco Type: Cigarettes - Alcohol History How Often Do You Have a Drink Containing Alcohol: Never - Substance Use History Substance History: No History of Abuse - Travel History Recent Travel in the [place] Within the Last 8 Weeks: No Recent Travel Out of the Country Within the Last 8 Weeks: No - Immunization History Tetanus Immunization: Unsure Hx Influenza Vaccine This Season: No Medications and Allergies Active Medications: Active Medications Acetaminophen (Tylenol) 650 mg PO Q4H PRN PRN Reason: Temp > 100.4 Hydrocodone Bitart/Acetaminophen ([place] 5/325) 1 tab PO Q6H PRN PRN Reason: PAIN SCALE 1 TO 5 Hydrocodone Bitart/Acetaminophen ([place] 10/325) 1 tab PO Q6H PRN PRN Reason: PAIN SCALE 6 TO 10 Last Admin: 05/25/18 16:36 Dose: 1 tab Al Hydroxide/Mg Hydroxide (Milk Of Magncarey Liq) 30 ml PO Q12H PRN PRN Reason: Mild Constipation Bisacodyl (Dulcolax Supp) 10 mg RECTAL DAILY PRN PRN Reason: SEVERE CONSITIPATION Collagenase (Santyl Oint) 1 applicatio TOPICAL DAILY NGOZI Last Admin: 05/26/18 08:28 Dose: 1 applicatio Dextrose (D50w Vial) 50 ml IV.PUSH UNSCH PRN PRN Reason: PER HYPOGLYCEMIA PROTOCOL Glucagon (Glucagon Inj) 1 mg OTHER PRN PRN PRN Reason: for Hypoglycemia Protocol Sodium Chloride (Ns Inj) 1,000 mls @ 75 mls/hr IV.CONT .[id number] [facility] Last Admin: 05/26/18 05:51 Dose: 75 mls/hr Insulin Aspart (Novolog Insulin Correctional Sugar Inj) 0 unit SQ ACHS [facility]; Protocol Last Admin: 05/26/18 08:29 Dose: 2 unit Lactulose (Lactulose Liq) 30 ml PO DAILY PRN PRN Reason: SEVERE CONSITIPATION Morphine Sulfate (Morphine Inj) 2 mg IV.PUSH Q3H PRN PRN Reason: BREAKTHROUGH PAIN Last Admin: 05/25/18 20:20 Dose: 2 mg Naloxone HCl (Narcan Inj) 0.4 mg IV.PUSH UNSCH PRN PRN Reason: SEE LABEL COMMENTS Ondansetron HCl (Zofran Inj) 4 mg IV.PUSH Q6H PRN PRN Reason: NAUSEA OR VOMITING Senna/Docusate Sodium (Kate-Colace) 1 tab PO BID [facility] Last Admin: 05/26/18 08:28 Dose: 1 tab Sennosides (Senokot) 17.2 mg PO Q12H PRN PRN Reason: Moderate Constipation Allergies Allergy/AdvReac Type Severity Reaction Status Date / Time oxycodone AdvReac Intermediate Vomiting Verified 05/25/18 10:36 sodium bicarbonate AdvReac Intermediate Vomiting Verified 05/25/18 10:36 Home Medications Medication Instructions Recorded Confirmed Type morphine 15 mg PO Q4-6H #0 03/26/18 05/25/18 History insulin aspart U-100 [Novolog 15 unit SUBCUT BID 05/25/18 05/25/18 History U-100 Insulin aspart] Physical Exam Vital Signs / I&O: Vital Signs 05/25/18 12:08 05/25/18 14:02 05/25/18 16:00 Temperature 97.8 F Pulse Rate 68 64 77 Respiratory Rate 18 18 20 Blood Pressure 146/68 H 134/79 130/61 Pulse Oximetry 97 97 100 05/25/18 20:00 05/25/18 21:37 05/26/18 00:00 Temperature 98.3 F 98.0 F Pulse Rate 77 52 L Respiratory Rate 17 20 Blood Pressure 155/68 H 141/65 H Pulse Oximetry 95 96 95 05/26/18 01:36 05/26/18 04:00 05/26/18 07:00 Temperature 98.9 F Pulse Rate 82 Respiratory Rate 18 18 12 Blood Pressure 120/65 Pulse Oximetry 97 05/26/18 08:00 Temperature 98.2 F Pulse Rate 79 Respiratory Rate 16 Blood Pressure 113/65 Pulse Oximetry 97 Intake & Output 05/25/18 05/26/18 05/26/18 18:59 06:59 18:59 Intake Total 830 / 830 1000 / 1000 720 / 720 Balance 830 / 830 1000 / 1000 720 / 720 Weight 68.039 kg 61.3 kg Intake: IV 350 / 350 1000 / 1000 NS Inj 1,000 ML @ 75 mls/hr IV. 1000 / 1000 CONT .[id number] NGOZI Rx#:[id number] Zosyn 4.5 GM Premix 4.5 gm In 100 / 100 100 ml @ 200 mls/hr IV.SIG STAT STA Rx#:[id number] Vancomycin Inj 1,000 MG In NS 250 / 250 Inj 250 ML @ 250 mls/hr IV.SIG STAT STA Rx#:[id number] Oral 480 / 480 720 / 720 Other: Date of Last Bowel Movement 05/25/18 05/25/18 05/25/18 Neuro: diminished UE motor function Able to lift R leg but not left HEENT: NC/AT Neck: no JVD Heart: reg rate Lungs: nonlabored Vascular: palpable femoral pulses bilaterally but no popliteal or pedal pulses Extremities: Lateral foot wounds with eschar but no surrounding erythema no odor L foot contracted worse than R Laboratory Results - last 24 hr 05/25/18 05/25/18 05/25/18 09:50 09:50 09:50 WBC 8.5 RBC 3.87 L Hgb 11.4 L Hct 32.0 L MCV 82.7 MCH 29.4 MCHC 35.6 RDW 14.3 Plt Count 383 MPV 7.7 Neut % (Auto) 69.3 Lymph % (Auto) 20.7 Boundary % (Auto) 6.6 Eos % (Auto) 2.3 Baso % (Auto) 1.1 Neut # (Auto) 5.9 Lymph # (Auto) 1.8 Boundary # (Auto) 0.6 Eos # (Auto) 0.2 Baso # (Auto) 0.1 WBC Differential . Differential Comment Auto diff final ESR 120 H Sodium 136 Potassium 4.3 Chloride 100 Carbon Dioxide 28.1 Anion Gap 8 BUN 37 H Creatinine 1.46 H Estimated GFR 50 L POC Glucose Random Glucose 237 H Calcium 8.6 Total Bilirubin AST ALT Alkaline Phosphatase C-Reactive Protein 3.27 H Total Protein Albumin 05/25/18 05/25/18 05/26/18 16:06 20:24 04:22 WBC 7.4 RBC 3.62 L Hgb 10.2 L Hct 30.2 L MCV 83.3 MCH 28.1 MCHC 33.7 RDW 14.1 Plt Count 336 MPV 7.7 Neut % (Auto) 63.3 Lymph % (Auto) 23.3 Boundary % (Auto) 8.2 H Eos % (Auto) 3.8 Baso % (Auto) 1.4 Neut # (Auto) 4.7 Lymph # (Auto) 1.7 Boundary # (Auto) 0.6 Eos # (Auto) 0.3 Baso # (Auto) 0.1 WBC Differential . Differential Comment Auto diff final ESR Sodium Potassium Chloride Carbon Dioxide Anion Gap BUN Creatinine Estimated GFR POC Glucose 120 H 221 H Random Glucose Calcium Total Bilirubin AST ALT Alkaline Phosphatase C-Reactive Protein Total Protein Albumin 05/26/18 05/26/18 04:22 08:04 WBC RBC Hgb Hct MCV MCH MCHC RDW Plt Count MPV Neut % (Auto) Lymph % (Auto) Boundary % (Auto) Eos % (Auto) Baso % (Auto) Neut # (Auto) Lymph # (Auto) Boundary # (Auto) Eos # (Auto) Baso # (Auto) WBC Differential Differential Comment ESR Sodium 142 Potassium 4.1 Chloride 108 H D Carbon Dioxide 24.2 Anion Gap 10 BUN 33 H Creatinine 1.51 H Estimated GFR 48 L POC Glucose 188 H Random Glucose 140 H Calcium 7.9 L Total Bilirubin 0.2 AST 22 ALT 31 Alkaline Phosphatase 392 H C-Reactive Protein Total Protein 7.4 Albumin 2.0 L Impressions Foot MRI 05/25/18 00:00 CONCLUSION: 1. Osteomyelitis of the fifth metatarsal and lateral aspect of the cuboid bone with overlying cellulitis and ulceration. 2. Mild tenosynovitis of the flexor tendons. 3. Minimally displaced fracture through the tibial plafond ending at the apex of the talar dome. Foot MRI 05/25/18 00:00 CONCLUSION: 1. Osteomyelitis of the calcaneus posteriorly with overlying ulceration and cellulitis. There is also abnormal signal at the plantar fascial and Achilles insertion sites, likely making these prone to rupture. Exam degraded by motion. Previous amputations as above. Foot X-Ray 05/25/18 09:48 CONCLUSION: Soft tissue ulceration, diffuse bone demineralization and remote postsurgical changes. Foot X-Ray 05/25/18 09:48 CONCLUSION: Diffuse bone demineralization and ulceration of the soft tissues as above. Assessment and Plan - Assessment (1) Open wnd foot-complicated Code(s): S91.309A - Unspecified open wound, unspecified foot, initial encounter Status: Acute - Plan 58 yo nonambulatory male with B LE foot wounds that are essentially pressure sores. He doesn't use his legs and in essence they are " weight" to him ( his words). There is no role for revascularization and I recommend elective B AKA at some point. This would make his transfers easier, already difficult because of his arm dysfunction. Discussed with patient that additional vascular testing not necessary. The wounds are very chronic and the decision for AKA can be dealt with as an outpatient. Moustapha Mckay MD FACS FSVS RPV[employer] development technologist [facility] - Heart and Vascular Surgery at [facility] [phone]
--- NOTE | 2018-05-26 11:58 | P.PNIM ---
Subjective Interval history: No complaints at this time doing okay. No fevers or chills. Physical Exam Vital signs: Last Vital Signs Temp 98.2 F 05/26/18 08:00 Pulse 79 05/26/18 08:00 Resp 16 05/26/18 08:00 BP 113/65 05/26/18 08:00 Pulse Ox 97 05/26/18 08:00 Intake & Output 05/24/18 05/25/18 05/26/18 05/27/18 06:59 06:59 06:59 06:59 Intake Total 1830 / 1830 720 / 720 Balance 1830 / 1830 720 / 720 Weight 61.3 kg Narrative: GENERAL: This is a well-nourished, well-developed patient, in no apparent distress. CARDIOVASCULAR: Regular rate and rhythm RESPIRATORY: Clear to auscultation. Breath sounds equal bilaterally. No wheezes , rales, or rhonchi. GASTROINTESTINAL: Abdomen soft, non-tender, nondistended. Normal active bowel sounds MUSCULOSKELETAL: Extremities with bandages bilaterally. Multiple ulcers on his bilateral feet right worse particular lateral aspects. NEURO: Alert & Oriented x4 to person, place, time, situation. Results Labs CBC & Chem 7: 05/26/18 04:22 05/26/18 04:22 Labs: Microbiology 05/25/18 10:00 Wound - Ankle Gram Stain - Final Imaging Imaging: Impressions Foot MRI 05/25/18 00:00 CONCLUSION: 1. Osteomyelitis of the fifth metatarsal and lateral aspect of the cuboid bone with overlying cellulitis and ulceration. 2. Mild tenosynovitis of the flexor tendons. 3. Minimally displaced fracture through the tibial plafond ending at the apex of the talar dome. Foot MRI 05/25/18 00:00 CONCLUSION: 1. Osteomyelitis of the calcaneus posteriorly with overlying ulceration and cellulitis. There is also abnormal signal at the plantar fascial and Achilles insertion sites, likely making these prone to rupture. Exam degraded by motion. Previous amputations as above. Assessment and Plan (1) Open wnd foot-complicated: Code(s): S91.309A - Unspecified open wound, unspecified foot, initial encounter Status: Acute Plan This a 58-year-old male with past medical history significant for type 2 diabetes, hypertension, Holly Pickard syndrome, [place], and CVA multiple toe dissections, and foot ulcers. Being admitted due to the worsening bilateral foot ulcers. 1. Bilateral foot ulcers on the lateral aspect of his feet bilaterally right worse than left -Podiatry is currently following -MRI shows osteomyelitis in bilateral feet with right fifth metatarsal lateral aspect of cuboid bone and left calcaneal -Continue Zosyn and vancomycin -Wound care consulted Vascular surgeon recommended elective bilateral AKA as there is no role for revascularization Will consult infectious disease for opinion on antibiotics for osteo- 2. Type 2 diabetes, uncontrolled, initiate Levemir with likely diabetic nephropathy -Insulin sliding scale in place -Monitor glucose per protocol 3. Chronic pain. Patient reports that he is on 15 mg of morphine 3 times a day I do not fully believe this and we are requesting the records for this. -[place] for pain -Morphine for breakthrough pain -We will adjust once we retained further records 4. 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 5. Chronic kidney disease stage III -avoid nephrotoxins, monitor on IV antibiotics. 6. DVT prophylaxis with SCDs heparin Progress Note: Quality VTE Deep Vein Thrombosis/Pulmonary Embolism Present on Admission: No _ (1) Open wnd foot-complicated Qualifiers: Encounter type: Laterality:
--- NOTE | 2018-05-26 20:48 | MB ---
cc: Marito Aguilar MD,Lu CASTELLANOS DATE: 05/26/2018 DATE OF CONSULTATION: 05/26/2018 REQUESTING PHYSICIAN: Dr. Jacques. REASON FOR VISIT: Osteomyelitis of bilateral feet. HISTORY OF PRESENT ILLNESS: This is a 58-year-old white male who has had nonhealing wounds of the feet including the left heel and right lateral foot at the base of the fifth metatarsal. The patient has been undergoing wound care at home. He reports that these wounds have been present for over a year. He has had wound care dressing the wound at home. He states that at one time he was seen by a gore inserter who doing surgery on the left heel with shaving of tissue. He states that last time it was done was some months ago. He reports also he was given a 2-week course of p.o. antibiotics for infection at the left heel. He recalls culture showing "B strep." The patient was evaluated in the emergency department here and imaging of the foot was performed including an MRI of the right foot that showed osteomyelitis of the fifth metatarsal and lateral aspect of the cuboid bone with overlying cellulitis and ulceration and also mild tenosynovitis of the flexor tendons. The left foot MRI shows osteomyelitis of the calcaneus posteriorly with overlying ulceration and cellulitis. There was also noted to be abnormal signal at the plantar fascial and Achilles insertion sites likely making this prone to rupture. The patient states that his only complaint is pain in the feet in the area of the wounds. He is afebrile and his white blood cell count is normal. Sedimentation rate is 120. The patient has been evaluated by podiatry. They recommend continued dressings with Santyl and dry sterile dressing. The patient was also evaluated by vascular surgery. They felt that there was no role for revascularization and they recommend elective bilateral AKA at some point. They felt that the wounds are essentially pressure sores. Culture and Gram stain of the wound has been taken. He does not specifically say from which wound the culture was taken. The patient continues to smoke. He states that he smokes approximately 18 cigarettes a day. The patient gets around in a wheelchair because of Guillain-Gilbert syndrome, and he is not able to walk. PAST MEDICAL HISTORY: Diabetes mellitus, hypercholesterolemia, hypertension, myocardial infarction, Guillain-Gilbert syndrome, cerebrovascular accident, history of coronary artery bypass graft surgery. ALLERGIES: OXYCODONE, SODIUM BICARBONATE. MEDICATIONS: [place] 10, Santyl ointment to the wounds, insulin, morphine sulfate p.r.n. SOCIAL HISTORY: No alcohol use. No illicit drugs positive tobacco. FAMILY HISTORY: Noncontributory. REVIEW OF SYSTEMS: All systems have been reviewed and are negative. PHYSICAL EXAMINATION: This is a well-developed, slender male in no acute distress. PHYSICAL EXAMINATION: GENERAL: This is a thin male who appears fairly nourished. He is awake and alert and oriented. VITAL SIGNS: Temperature 98.5, BP 154/74, respirations 16, heart rate 83. HEENT: Head is atraumatic. Extraocular movements are grossly intact. Pupils reactive to light. No icterus. Oropharynx moist mucosa without lesions. NECK: Supple. No adenopathy. LUNGS: Clear breath sounds bilaterally. HEART: Regular S1 and S2, without murmurs, rubs or gallops. ABDOMEN: Bowel sounds present. Soft, no tenderness appreciated. No mass palpable. RECTAL: Not performed. EXTREMITIES: Both legs have muscle wasting. The right lateral foot at the base of the fifth toe has an ulcerated wound. No visible erythema. The left ankle/heel has an ulceration. SKIN: No rash. NEUROLOGIC: Nonfocal. Decreased strength of the lower extremities. PSYCHIATRIC: Patient is calm and cooperative and affect appears normal. LABORATORY DATA: WBC 7.4, platelets 336, 63% neutrophils, 23% lymphocytes, hemoglobin 10.2, creatinine 1.51, BUN 33, sodium 142. IMPRESSION: 1. Osteomyelitis of the fifth metatarsal of the right foot and left calcaneus on the left foot in a patient who has chronic leg wounds with open ulcerations. Culture data not available at this time. 2. Chronic kidney disease. RECOMMENDATIONS: 1. Send culture of both the left and right leg lesions. Hopefully, we will get information from the culture to make a decision on antibiotic treatment in this patient. 2. Await culture results to determine antibiotics. Thank you for this consultation. I will monitor the patient's progress with you. MD BRETT Johnston/rico , 05:20 PM , 05:34 PM
[2018-05-26] MEDS: Insulin Detemir Inj 1,000 UNIT/10 ML Vial SQ SCH (21:27)
[2018-05-27 07:21] LABS: Baso % (Auto) 0.7 % (0.0-2.0); Eos # (Auto) 0.3 th/mm3 (0.0-0.4); Hematocrit 28.8 % (39.0-51.0); Hemoglobin 10.2 gm/dL (13.0-17.0); Lymph # (Auto) 2.1 th/mm3 (1.0-4.8); Lymph % (Auto) 30.9 % (9.0-44.0); Mean Corpuscular HGB Conc 35.3 % (32.0-36.0); Mean Corpuscular Hemoglobin 28.9 pg (27.0-34.0); Mean Corpuscular Volume 81.8 fL (80.0-100.0); Mean Platelet Volume 7.4 fL (7.0-11.0); Mono # (Auto) 0.4 th/mm3 (0.0-0.9); Mono % (Auto) 5.8 % (0.0-8.0); Neut # (Auto) 3.9 th/mm3 (1.8-7.7); Neut % (Auto) 58.6 % (16.0-70.0); Platelet Count 335 th/mm3 (150-450); Red Blood Count 3.52 mil/mm3 (4.50-5.90); Red Cell Distribution Width 14.1 % (11.6-17.2); White Blood Count 6.7 th/mm3 (4.0-11.0)
[2018-05-27 07:29] LABS: Calcium 8.3 mg/dL (8.5-10.1); Carbon Dioxide 25.3 meq/L (21.0-32.0); Potassium 3.7 meq/L (3.5-5.1)
[2018-05-27] MEDS: Insulin NovoLOG Aspart Correctional Sugar Inj SQ SCH ×4 (09:23→23:07)
[2018-05-27] MEDS: Collagenase Oint 30 GM Tube TOPICAL SCH (09:23)
[2018-05-27] MEDS: Senna/Docusate Sodium 8.6/50 MG Tablet PO SCH ×2 (09:23→22:09)
--- NOTE | 2018-05-27 12:28 | P.PNIM ---
Subjective Interval history: Patient states that he has had a sacral wound for the past 4 months stage IV and home health care nursing has been taking care of his wound. He reports no pain. He has not had any fever. Tolerating diet. Physical Exam Vital signs: Last Vital Signs Temp 98.1 F 05/27/18 08:00 Pulse 80 05/27/18 08:00 Resp 16 05/27/18 08:00 BP 147/79 H 05/27/18 08:00 Pulse Ox 97 05/27/18 08:00 Intake & Output 05/25/18 05/26/18 05/27/18 05/28/18 06:59 06:59 06:59 06:59 Intake Total 1830 / 1830 1170 / 1170 Output Total 900 / 900 Balance 1830 / 1830 270 / 270 Weight 61.3 kg 60.2 kg Narrative: GENERAL: This is a well-nourished, well-developed patient, in no apparent distress. CARDIOVASCULAR: Regular rate and rhythm RESPIRATORY: Clear to auscultation. Breath sounds equal bilaterally. No wheezes , rales, or rhonchi. GASTROINTESTINAL: Abdomen soft, non-tender, nondistended. Normal active bowel sounds MUSCULOSKELETAL: Extremities with bandages bilaterally. Ulceration over the right lateral part of the foot along with left heel NEURO: Alert & Oriented x4 to person, place, time, situation. Sacrum; area of deep tissue wound likely tunnel into the tailbone in the mid sacrum area approximately 5-6 cm with no active drainage with mild surrounding redness no signs of induration seen. Results Labs CBC & Chem 7: 05/27/18 06:30 05/27/18 06:35 Labs: Microbiology 05/25/18 10:00 Wound - Ankle Gram Stain - Final 05/25/18 10:00 Wound - Ankle Wound Culture - Preliminary Staphylococcus aureus Group D Enterococcus 05/27/18 03:12 Wound - Foot Gram Stain - Final 05/26/18 18:16 Wound - Heel Gram Stain - Final Assessment and Plan (1) Open wnd foot-complicated: Code(s): S91.309A - Unspecified open wound, unspecified foot, initial encounter Status: Acute Plan This a 58-year-old male with past medical history significant for type 2 diabetes, hypertension, Holly Pickard syndrome, [place], and CVA multiple toe dissections, and foot ulcers. Being admitted due to the worsening bilateral foot ulcers. 1. Bilateral foot ulcers on the lateral aspect of his feet bilaterally right worse than left -Podiatry is currently following -MRI shows osteomyelitis in bilateral feet with right fifth metatarsal lateral aspect of cuboid bone and left calcaneal -Continue Zosyn and vancomycin -Wound care consulted Vascular surgeon recommended elective bilateral AKA as there is no role for revascularization Appreciate infectious disease recommendations and await final wound cultures to determine course of antibiotics. Preliminary right foot wound showed Staphylococcus aureus and group D enterococcus, awaiting left heel wound cultures 2. 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 Chronic pain. -[place] for pain -Morphine IV for breakthrough pain -We will adjust once we retained further records 4. 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 Continue physical therapy 5. Chronic kidney disease stage III -avoid nephrotoxins, monitor on IV antibiotics. 6. DVT prophylaxis with SCDs heparin Discharge Planning: Home with home health care Progress Note: Quality VTE Deep Vein Thrombosis/Pulmonary Embolism Present on Admission: No _ (1) Open wnd foot-complicated Qualifiers: Encounter type: Laterality:
--- NOTE | 2018-05-27 15:13 | P.PNPOD ---
Subjective Interval history: Patient seen bedside. States he discussed above the knee amputations with vascular surgeon, he is agreeable to above the knee amputations as an outpatient as he states they are not required right at this time but eventually will most likely be needed. Denies any nausea vomiting fevers or chills. Patient is agreeable to follow-up. He states he was referred to the [facility] however was unable to ever make it. His primary care is with [facility]. Physical Exam Vital signs: Vital Signs 05/26/18 16:00 05/26/18 20:00 05/27/18 00:00 Temperature 98.3 F 98.1 F 98.5 F Pulse Rate 81 92 H 83 Respiratory Rate 16 18 18 Blood Pressure 163/61 H 131/63 162/72 H Pulse Oximetry 98 100 98 05/27/18 04:00 05/27/18 08:00 05/27/18 12:00 Temperature 98.0 F 98.1 F 98.0 F Pulse Rate 74 80 74 Respiratory Rate 18 16 18 Blood Pressure 156/70 H 147/79 H 177/71 H Pulse Oximetry 98 97 96 Intake & Output 05/26/18 05/27/18 05/27/18 18:59 06:59 18:59 Intake Total 1170 / 1170 Output Total 900 / 900 Balance 270 / 270 Weight 60.2 kg Intake: IV 450 / 450 NS Inj 1,000 ML @ 75 mls/hr IV. 450 / 450 CONT .[id number] [facility] Rx#:[id number] Oral 720 / 720 Output: Urine 900 / 900 Other: # Voids 2 Date of Last Bowel Movement 05/25/18 05/26/18 05/26/18 Narrative: Right lateral midfoot with necrotic tissue present, down to level of bone. Stable appearing margins present. No erin purulence present. Sloughing of fibrotic necrotic tissue present, improvement noted. Left plantar heel with large granular wound, appears stable, no probe to bone. No purulence present. Left lateral malleolus with small area of necrotic tissue present, also with stable margins and no purulence present. Sloughing of fibrotic necrotic tissue present, improvement noted history of amputations to left forefoot. Sensation absent to light touch bilaterally Contracture noted to bilateral knee Weakness noted to bilateral lower extremity Medications and Allergies Active Medications: Active Medications Acetaminophen (Tylenol) 650 mg PO Q4H PRN PRN Reason: Temp > 100.4 Hydrocodone Bitart/Acetaminophen ([place] 5/325) 1 tab PO Q6H PRN PRN Reason: PAIN SCALE 1 TO 5 Hydrocodone Bitart/Acetaminophen ([place] 10/325) 1 tab PO Q6H PRN PRN Reason: PAIN SCALE 6 TO 10 Last Admin: 05/25/18 16:36 Dose: 1 tab Al Hydroxide/Mg Hydroxide (Milk Of Magnesia Liq) 30 ml PO Q12H PRN PRN Reason: Mild Constipation Bisacodyl (Dulcolax Supp) 10 mg RECTAL DAILY PRN PRN Reason: SEVERE CONSITIPATION Collagenase (Santyl Oint) 1 applicatio TOPICAL DAILY [facility] Last Admin: 05/27/18 09:23 Dose: 1 applicatio Dextrose (D50w Vial) 50 ml IV.PUSH UNSCH PRN PRN Reason: PER HYPOGLYCEMIA PROTOCOL Glucagon (Glucagon Inj) 1 mg OTHER PRN PRN PRN Reason: for Hypoglycemia Protocol Insulin Aspart (Novolog Insulin Correctional Sugar Inj) 0 unit SQ ACHS [facility]; Protocol Last Admin: 05/27/18 12:57 Dose: Not Given Insulin Detemir (Levemir Inj) 10 unit SQ HS [facility]; Protocol Last Admin: 05/26/18 21:27 Dose: 10 unit Lactulose (Lactulose Liq) 30 ml PO DAILY PRN PRN Reason: SEVERE CONSITIPATION Morphine Sulfate (Morphine Inj) 2 mg IV.PUSH Q3H PRN PRN Reason: BREAKTHROUGH PAIN Last Admin: 05/25/18 20:20 Dose: 2 mg Naloxone HCl (Narcan Inj) 0.4 mg IV.PUSH UNSCH PRN PRN Reason: SEE LABEL COMMENTS Ondansetron HCl (Zofran Inj) 4 mg IV.PUSH Q6H PRN PRN Reason: NAUSEA OR VOMITING Senna/Docusate Sodium (Kate-Colace) 1 tab PO BID [facility] Last Admin: 05/27/18 09:23 Dose: Not Given Sennosides (Senokot) 17.2 mg PO Q12H PRN PRN Reason: Moderate Constipation Allergies Allergy/AdvReac Type Severity Reaction Status Date / Time oxycodone AdvReac Intermediate Vomiting Verified 05/25/18 10:36 sodium bicarbonate AdvReac Intermediate Vomiting Verified 05/25/18 10:36 Home Medications Medication Instructions Recorded Confirmed Type morphine 15 mg PO Q4-6H #0 03/26/18 05/25/18 History insulin aspart U-100 [Novolog 15 unit SUBCUT BID 05/25/18 05/25/18 History U-100 Insulin aspart] Results - Labs CBC & Chem 7: 05/27/18 06:30 05/27/18 06:35 Laboratory Results - last 24 hr 05/26/18 05/26/18 05/27/18 16:24 21:11 06:30 WBC 6.7 RBC 3.52 L Hgb 10.2 L Hct 28.8 L MCV 81.8 MCH 28.9 MCHC 35.3 RDW 14.1 Plt Count 335 MPV 7.4 Neut % (Auto) 58.6 Lymph % (Auto) 30.9 [place] % (Auto) 5.8 Eos % (Auto) 4.0 Baso % (Auto) 0.7 Neut # (Auto) 3.9 Lymph # (Auto) 2.1 [place] # (Auto) 0.4 Eos # (Auto) 0.3 Baso # (Auto) 0.0 WBC Differential . Differential Comment Auto diff final Sodium Potassium Chloride Carbon Dioxide Anion Gap BUN Creatinine Estimated GFR POC Glucose 295 H 216 H Random Glucose Calcium 05/27/18 05/27/18 05/27/18 06:35 08:20 12:56 WBC RBC Hgb Hct MCV MCH MCHC RDW Plt Count MPV Neut % (Auto) Lymph % (Auto) [place] % (Auto) Eos % (Auto) Baso % (Auto) Neut # (Auto) Lymph # (Auto) [place] # (Auto) Eos # (Auto) Baso # (Auto) WBC Differential Differential Comment Sodium 141 Potassium 3.7 Chloride 107 Carbon Dioxide 25.3 Anion Gap 9 BUN 32 H Creatinine 1.47 H Estimated GFR 49 L POC Glucose 157 H 224 H Random Glucose 134 H Calcium 8.3 L Microbiology 05/26/18 18:16 Wound - Heel Gram Stain - Final 05/26/18 18:16 Wound - Heel Wound Culture - Preliminary Staphylococcus aureus 05/25/18 10:00 Wound - Ankle Gram Stain - Final 05/25/18 10:00 Wound - Ankle Wound Culture - Preliminary Staphylococcus aureus Group D Enterococcus 05/27/18 03:12 Wound - Foot Gram Stain - Final Assessment and Plan - Assessment (1) Osteomyelitis of left foot Code(s): M86.9 - Osteomyelitis, unspecified Status: Acute (2) Osteomyelitis of right foot Code(s): M86.9 - Osteomyelitis, unspecified Status: Acute - Plan 58-year-old male with bilateral lower extremity ulceration Awaiting final cultures for ID recommendations on outpatient antibiotic Recommend local wound care at this time, improvement noted on Santyl LE dressing changes of Santyl with moistened dry dressing, 4 x 4's, Nissa. Updated daily dressing changes Patient will need heel offloading booties, will place orders Patient will need wound care follow-up Patient okay to follow-up with Dr. Garcia or myself in office please have authorizations from primary care for appointment Patient to follow-up in office within 1 week of discharge
[2018-05-27] MEDS: Insulin Detemir Inj 1,000 UNIT/10 ML Vial SQ SCH (23:07)
[2018-05-28] MEDS: Senna/Docusate Sodium 8.6/50 MG Tablet PO SCH ×2 (09:15→21:22)
[2018-05-28] MEDS: Collagenase Oint 30 GM Tube TOPICAL SCH (09:15)
[2018-05-28] MEDS: Insulin NovoLOG Aspart Correctional Sugar Inj SQ SCH ×5 (09:15→21:22)
--- NOTE | 2018-05-28 12:23 | P.PNID ---
Subjective Remarks: Patient without complaints. Afebrile. Wound culture has MRSA and strep. This is a 58-year-old white male who has had nonhealing wounds of the feet including the left heel and right lateral foot at the base of the fifth metatarsal. The patient has been undergoing wound care at home. He reports that these wounds have been present for over a year. He has had wound care dressing the wound at home. He states that at one time he was seen by a industrial court magistrate who doing surgery on the left heel with shaving of tissue. He states that last time it was done was some months ago. He reports also he was given a 2-week course of p.o. antibiotics for infection at the left heel. He recalls culture showing "B strep." The patient was evaluated in the emergency department here and imaging of the foot was performed including an MRI of the right foot that showed osteomyelitis of the fifth metatarsal and lateral aspect of the cuboid bone with overlying cellulitis and ulceration and also mild tenosynovitis of the flexor tendons. The left foot MRI shows osteomyelitis of the calcaneus posteriorly with overlying ulceration and cellulitis. There was also noted to be abnormal signal at the plantar fascial and Achilles insertion sites likely making this prone to rupture. The patient states that his only complaint is pain in the feet in the area of the wounds. Past Medical History: PAST MEDICAL HISTORY: Diabetes mellitus, hypercholesterolemia, hypertension, myocardial infarction, Guillain-[place] syndrome, cerebrovascular accident, history of coronary artery bypass graft surgery. Allergies/Adverse Reactions: Allergies oxycodone Adverse Reaction (Intermediate, Verified 05/25/18 10:36) Vomiting sodium bicarbonate Adverse Reaction (Intermediate, Verified 05/25/18 10:36) Vomiting Objective Vital Signs 05/27/18 16:00 05/27/18 20:00 05/28/18 00:00 Temperature 98.0 F 99.0 F 97.9 F Pulse Rate 79 75 79 Respiratory Rate 16 16 19 Blood Pressure 197/83 H 158/79 H 150/65 H Pulse Oximetry 98 99 99 05/28/18 04:00 05/28/18 08:00 05/28/18 11:58 Temperature 97.7 F 97.7 F 98 F Pulse Rate 98 H 81 58 L Respiratory Rate 18 18 18 Blood Pressure 122/58 L 130/73 138/66 Pulse Oximetry 98 98 98 Intake & Output 05/27/18 05/28/18 05/28/18 18:59 06:59 18:59 Intake Total 220 / 220 100 / 100 Balance 220 / 220 100 / 100 Weight 65.9 kg 57.5 kg Intake: IV 100 / 100 Ancef Inj 1,000 MG In NS Inj 100 / 100 100 ML @ 200 mls/hr IV.SIG Q8H [facility] Rx#:[id number] Oral 220 / 220 Other: # Voids 1 Date of Last Bowel Movement 05/26/18 Weight On Admission 65.9 kg 05/25/18 10:00 Wound - Ankle Gram Stain - Final 05/25/18 10:00 Wound - Ankle Wound Culture - Final S. aureus MRSA Streptococcus bovis group 05/26/18 18:16 Wound - Heel Gram Stain - Final 05/26/18 18:16 Wound - Heel Wound Culture - Preliminary Staphylococcus aureus 05/27/18 03:12 Wound - Foot Gram Stain - Final 05/27/18 03:12 Wound - Foot Wound Culture - Pending Lab - Hematology Results 05/27/18 06:30 WBC 6.7 RBC 3.52 L Hgb 10.2 L Hct 28.8 L MCV 81.8 MCH 28.9 MCHC 35.3 RDW 14.1 Plt Count 335 MPV 7.4 Neut % (Auto) 58.6 Lymph % (Auto) 30.9 [place] % (Auto) 5.8 Eos % (Auto) 4.0 Baso % (Auto) 0.7 Neut # (Auto) 3.9 Lymph # (Auto) 2.1 [place] # (Auto) 0.4 Eos # (Auto) 0.3 Baso # (Auto) 0.0 WBC Differential . Differential Comment Auto diff final Lab - Chemistry Results 05/26/18 05/26/18 05/26/18 11:48 16:24 21:11 Sodium Potassium Chloride Carbon Dioxide Anion Gap BUN Creatinine Estimated GFR POC Glucose 313 H 295 H 216 H Random Glucose Calcium 05/27/18 05/27/18 05/27/18 06:35 08:20 12:56 Sodium 141 Potassium 3.7 Chloride 107 Carbon Dioxide 25.3 Anion Gap 9 BUN 32 H Creatinine 1.47 H Estimated GFR 49 L POC Glucose 157 H 224 H Random Glucose 134 H Calcium 8.3 L 05/27/18 05/27/18 05/28/18 17:52 21:52 07:36 Sodium Potassium Chloride Carbon Dioxide Anion Gap BUN Creatinine Estimated GFR POC Glucose 149 H 263 H 114 H Random Glucose Calcium Imaging: ITS Impressions Foot MRI 05/25/18 00:00 CONCLUSION: 1. Osteomyelitis of the calcaneus posteriorly with overlying ulceration and cellulitis. There is also abnormal signal at the plantar fascial and Achilles insertion sites, likely making these prone to rupture. Exam degraded by motion. Previous amputations as above. Foot X-Ray 05/25/18 09:48 CONCLUSION: Diffuse bone demineralization and ulceration of the soft tissues as above. Physical Exam: PHYSICAL EXAMINATION: GENERAL: Awake and alert and oriented. HEENT: No icterus. Oropharynx moist mucosa without lesions. NECK: Supple. No adenopathy. LUNGS: Clear breath sounds. HEART: Regular S1 and S2, without murmurs, rubs or gallops. ABDOMEN: Bowel sounds present. Soft, no tenderness appreciated. EXTREMITIES: Both legs have muscle wasting. The right lateral foot at the base of the fifth toe has an ulcerated wound. No visible erythema. The left ankle/heel has an ulceration. SKIN: No rash. NEUROLOGIC: Nonfocal. Decreased strength of the lower extremities. PSYCHIATRIC: Calm and cooperative. Assessment and Plan - Plan IMPRESSION: 1. Osteomyelitis of the fifth metatarsal of the right foot and left calcaneus on the left foot in a patient who has chronic leg wounds with open ulcerations. MRSA. BOB to vancomycin = 2. 2. Chronic kidney disease. RECOMMENDATIONS: Because fo the vanco BOB and the kidney disease give IV Daptomycin until Jun. Weekly labs CPK, sed rate. See orders on IV infusion form. Case management to arrange IV antibiotics. PIC line ordered, Can be discharged tomorrow if arrangements are made.
--- NOTE | 2018-05-28 12:25 | P.DCO ---
Post Hospital Infusion Therapy - Infusion Therapy Location of Infusion Therapy: Home Health Care IV Infusion Order - Patient Information Patient Weight: 57.5 kg - Diagnosis (1) Infected open wound Code(s): T14.8XXA - Other injury of unspecified body region, initial encounter; L08.9 - Local infection of the skin and subcutaneous tissue, unspecified (2) Open wnd foot-complicated Code(s): S91.309A - Unspecified open wound, unspecified foot, initial encounter (3) Osteomyelitis of left foot Code(s): M86.9 - Osteomyelitis, unspecified (4) Osteomyelitis of right foot Code(s): M86.9 - Osteomyelitis, unspecified - Administer Medication Daptomycin Additional Dosing Instructions: 350mg IV Q24 Hours Stop Treatment: 07/04/18 - Additional Information Venous Access: PICC Line Additional Instructions: [x] Peripheral flush and dressing changes per protocol [x] Implanted port and central on line csr: * Implanted port: 10 ml Normal Saline followed by 5 ml Heparin 100 units/ml Heparin flush after each use and monthly to maintain. [] May leave port accessed during therapy. [] May leave peripheral site accessed for duration of therapy. [x] If patient has SOB or respiratory distress, check oxygen saturation. If less than 90% or clinical signs of respiratory distress, administer oxygen at 2 L/min. via nasal cannula and notify physician. [x] Anaphylaxis/Reaction orders: * Stop infusion. * Keep IV line open with saline flush. * Notify physician. * Monitor vital signs every 15 minutes until symptoms resolve. * Check Oxygen saturation; Oxygen at 2 L/min. via nasal cannula if less than 90% or clinical signs of respiratory distress. * Administer diphenhydramine (Benadryl) 25 mg IV STAT, (unless patient has received as pre-med). May repeat once, if necessary. * Solu-Cortef 250 mg IVP over 30-60 seconds, use 100 mg vials for each dissolution. * Epinephrine (1mg/1 ml) 0.3 mg subcutaneously or IVP now with any signs of respiratory distress. * Check with physician for new additional pre-med orders if patient is re- challenged or re-treated. [x] May remove PICC line when treatment complete, after confirming with Physician. [x] If the patient is admitted to the hospital, the ED, or transferred via [facility] , complete transfer form including medication reconciliation order sheet. Weekly Labs: SED Rate, Serum CK Levels - Case Management Consult Case Management Consult-IVF: Yes - Patient Information Allergies oxycodone Adverse Reaction (Intermediate, Verified 05/25/18 10:36) Vomiting sodium bicarbonate Adverse Reaction (Intermediate, Verified 05/25/18 10:36) Vomiting
--- NOTE | 2018-05-28 12:33 | P.PNIM ---
Subjective Interval history: Reports overall he is doing well. No fevers or chills. Good appetite. No other concerns. Wants to go home soon. Physical Exam Vital signs: Last Vital Signs Temp 98 F 05/28/18 11:58 Pulse 58 L 05/28/18 11:58 Resp 18 05/28/18 11:58 BP 138/66 05/28/18 11:58 Pulse Ox 98 05/28/18 11:58 Intake & Output 05/26/18 05/27/18 05/28/18 05/29/18 06:59 06:59 06:59 06:59 Intake Total 1830 / 1830 1170 / 1170 220 / 220 100 / 100 Output Total 900 / 900 Balance 1830 / 1830 270 / 270 220 / 220 100 / 100 Weight 61.3 kg 60.2 kg 57.5 kg 57.5 kg Narrative: GENERAL: This is a well-nourished, well-developed patient, in no apparent distress. CARDIOVASCULAR: Regular rate and rhythm RESPIRATORY: Clear to auscultation. Breath sounds equal bilaterally. No wheezes , rales, or rhonchi. GASTROINTESTINAL: Abdomen soft, non-tender, nondistended. Normal active bowel sounds MUSCULOSKELETAL: Extremities with bandages bilaterally. Ulceration over the right lateral part of the foot along with left heel NEURO: Alert & Oriented x4 to person, place, time, situation. Results Labs CBC & Chem 7: 05/27/18 06:30 05/27/18 06:35 Labs: Microbiology 05/25/18 10:00 Wound - Ankle Gram Stain - Final 05/25/18 10:00 Wound - Ankle Wound Culture - Final S. aureus MRSA Streptococcus bovis group 05/26/18 18:16 Wound - Heel Gram Stain - Final 05/26/18 18:16 Wound - Heel Wound Culture - Preliminary Staphylococcus aureus 05/27/18 03:12 Wound - Foot Gram Stain - Final Assessment and Plan (1) Osteomyelitis of left foot: Code(s): M86.9 - Osteomyelitis, unspecified Status: Acute (2) Osteomyelitis of right foot: Code(s): M86.9 - Osteomyelitis, unspecified Status: Acute (3) Chronic kidney disease (CKD) stage G3a/A1, moderately decreased glomerular filtration rate (GFR) between 45-59 mL/min/1.73 square meter and albuminuria creatinine ratio less than 30 mg/g: Code(s): N18.3 - Chronic kidney disease, stage 3 (moderate) Status: Acute (4) Decubitus ulcer of sacral region, stage 4: Code(s): L89.154 - Pressure ulcer of sacral region, stage 4 Status: Acute Plan This a 58-year-old male with past medical history significant for type 2 diabetes, hypertension, [place] syndrome, [place], and CVA multiple toe dissections, and foot ulcers. Being admitted due to the worsening bilateral foot ulcers. 1. Bilateral foot ulcers on the lateral aspect of his feet bilaterally right worse than left -Podiatry is currently following -MRI shows osteomyelitis in bilateral feet with right fifth metatarsal lateral aspect of cuboid bone and left calcaneal -Continue Zosyn and vancomycin per infectious disease -Wound care consulted Vascular surgeon recommended elective bilateral AKA as there is no role for revascularization Appreciate infectious disease recommendations and await final wound cultures to determine course of antibiotics. Likely will need PICC line and outpatient IV antibiotics Preliminary right foot wound showed Staphylococcus aureus and group D enterococcus, MRSA, awaiting left heel wound cultures 2. 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 Chronic pain. -[place] for pain -Morphine IV for breakthrough pain 4. 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 Continue physical therapy 5. Chronic kidney disease stage III -avoid nephrotoxins, monitor on IV antibiotics. Creatinine has been stable. 6. DVT prophylaxis with SCDs heparin 7. Sacral decubitus stage IV, prehospitalization continue local wound care. Discharge Planning: Home with home health care Progress Note: Quality VTE Deep Vein Thrombosis/Pulmonary Embolism Present on Admission: No _ (1) Osteomyelitis of left foot Qualifiers: Osteomyelitis type: (2) Osteomyelitis of right foot Qualifiers: Osteomyelitis type:
[2018-05-28] MEDS: SODIUM CHLOR 0.9% IV.SIG SCH (15:07)
[2018-05-28] MEDS: DAPTOMYCIN IV.SIG SCH (15:07)
--- NOTE | 2018-05-28 15:21 | P.DIET ---
Nutritional Evaluation Screening comments: MDC for diet education acknowledged. Pt states he is familiar with his diabetic diet and needs no further instruction. Will send Glucerna Shakes on pt's trays 2 ' to BMI of 19.2. Pt is agreeable. Info left at bedside.
--- NOTE | 2018-05-28 17:06 | P.CONNP ---
History of Present Illness Reason for Consult: Chronic kidney disease. Primary Care Provider: UNKNOWN Chief Complaint: Bilateral foot wound History of Present Illness: This patient is a 58-year-old gentleman with a history of diabetes mellitus type 2, hypertension, Cruz Pickard. Patient admitted on May 25, 2018 with chronic foot wounds and has been diagnosed as having osteomyelitis. He will be receiving daptomycin parenterally until July 04, 2018 per notes I reviewed. Patient was noted to have had a serum creatinine level of 1.59 March,. Of interest he also had a CAT scan performed on March 26, 2018 which showed marked bilateral hydronephrosis with a distended bladder. I cannot find records for that admission specifically indicating how that was addressed but per patient he did have a Pandey catheter inserted which was subsequently removed at the time of discharge. He indicated to me that he had hematuria post discharge which subsequently resolved. He was not referred to a urologist by history and is not established with one. He also has no outpatient page makeup system operator. Creatinine level in-house for this admission has been relatively stable ranging between 1.46 and 1.51. The patient will need to receive daptomycin post discharge and placement of a PICC line is being considered. Of interest patient noted to be anemic. 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 High cholesterol Hypertension - Surgical History Surgical History: Surgical History (Last Reviewed 05/26/18 @ 10:34 by Moustapha Mckay MD) Hx of CABG - Family History Family History: Family History (Last Updated 05/25/18 @ 12:50 by Tito Paris MD) Other Diabetes Hypertension Osteoarthritis - Tobacco History Second Hand Smoke Exposure: Yes Tobacco Use In Past 30 Days: Yes Smoking Status: Current every day smoker Tobacco Type: Cigarettes - Alcohol History How Often Do You Have a Drink Containing Alcohol: Never - Substance Use History Substance History: No History of Abuse - Travel History Recent Travel in the [place] Within the Last 8 Weeks: No Recent Travel Out of the Country Within the Last 8 Weeks: No - Immunization History Tetanus Immunization: Unsure Hx Influenza Vaccine This Season: No Medications and Allergies Active Medications: Active Medications Acetaminophen (Tylenol) 650 mg PO Q4H PRN PRN Reason: Temp > 100.4 Hydrocodone Bitart/Acetaminophen ([place] 5/325) 1 tab PO Q6H PRN PRN Reason: PAIN SCALE 1 TO 5 Hydrocodone Bitart/Acetaminophen ([place] 10/325) 1 tab PO Q6H PRN PRN Reason: PAIN SCALE 6 TO 10 Last Admin: 05/27/18 23:26 Dose: 1 tab Al Hydroxide/Mg Hydroxide (Milk Of Magnesia Liq) 30 ml PO Q12H PRN PRN Reason: Mild Constipation Bisacodyl (Dulcolax Supp) 10 mg RECTAL DAILY PRN PRN Reason: SEVERE CONSITIPATION Collagenase (Santyl Oint) 1 applicatio TOPICAL DAILY NGOZI Last Admin: 05/28/18 09:15 Dose: 1 applicatio Dextrose (D50w Vial) 50 ml IV.PUSH UNSCH PRN PRN Reason: PER HYPOGLYCEMIA PROTOCOL Glucagon (Glucagon Inj) 1 mg OTHER PRN PRN PRN Reason: for Hypoglycemia Protocol Cefazolin Sodium 1,000 mg/ (Sodium Chloride) 100 mls @ 200 mls/hr IV.SIG Q8H NGOZI Last Infusion: 05/28/18 11:14 Dose: Infused Daptomycin 350 mg/ Sodium (Chloride) 100 mls @ 200 mls/hr IV.SIG Q24H NGOZI Last Infusion: 05/28/18 16:23 Dose: Infused Insulin Aspart (Novolog Insulin Correctional Sugar Inj) 0 unit SQ ACHS [facility]; Protocol Last Admin: 05/28/18 12:45 Dose: 4 unit Insulin Aspart (Novolog Insulin Correctional Sugar Inj) 3 unit SQ TIDAC [facility]; Protocol Insulin Detemir (Levemir Inj) 15 unit SQ HS NGOZI; Protocol Lactulose (Lactulose Liq) 30 ml PO DAILY PRN PRN Reason: SEVERE CONSITIPATION Morphine Sulfate (Morphine Inj) 2 mg IV.PUSH Q3H PRN PRN Reason: BREAKTHROUGH PAIN Last Admin: 05/25/18 20:20 Dose: 2 mg Naloxone HCl (Narcan Inj) 0.4 mg IV.PUSH UNSCH PRN PRN Reason: SEE LABEL COMMENTS Ondansetron HCl (Zofran Inj) 4 mg IV.PUSH Q6H PRN PRN Reason: NAUSEA OR VOMITING Senna/Docusate Sodium (Kate-Colace) 1 tab PO BID [facility] Last Admin: 05/28/18 09:15 Dose: 1 tab Sennosides (Senokot) 17.2 mg PO Q12H PRN PRN Reason: Moderate Constipation Allergies Allergy/AdvReac Type Severity Reaction Status Date / Time oxycodone AdvReac Intermediate Vomiting Verified 05/25/18 10:36 sodium bicarbonate AdvReac Intermediate Vomiting Verified 05/25/18 10:36 Home Medications Medication Instructions Recorded Confirmed Type morphine 15 mg PO Q4-6H #0 03/26/18 05/25/18 History insulin aspart U-100 [Novolog 15 unit SUBCUT BID 05/25/18 05/25/18 History U-100 Insulin aspart] Exam Vital signs: Vital Signs 05/27/18 20:00 05/28/18 00:00 05/28/18 04:00 Temperature 99.0 F 97.9 F 97.7 F Pulse Rate 75 79 98 H Respiratory Rate 16 19 18 Blood Pressure 158/79 H 150/65 H 122/58 L Pulse Oximetry 99 99 98 05/28/18 08:00 05/28/18 11:58 Temperature 97.7 F 98 F Pulse Rate 81 58 L Respiratory Rate 18 18 Blood Pressure 130/73 138/66 Pulse Oximetry 98 98 Intake & Output 05/27/18 05/28/18 05/28/18 18:59 06:59 18:59 Intake Total 220 / 220 200 / 200 Balance 220 / 220 200 / 200 Weight 65.9 kg 57.5 kg 57.5 kg Intake: IV 200 / 200 Cubicin Inj 350 MG In NS Inj 100 / 100 100 ML @ 200 mls/hr IV.SIG Q24H NGOZI Rx#:[id number] Ancef Inj 1,000 MG In NS Inj 100 / 100 100 ML @ 200 mls/hr IV.SIG Q8H NGOZI Rx#:[id number] Oral 220 / 220 Other: # Voids 1 Date of Last Bowel Movement 05/26/18 Weight On Admission 65.9 kg Narrative: GENERAL: General examination reveals a somewhat frail-appearing gentleman, evidence of muscle wastage of all limbs. Patient not in respiratory distress. Dressing overlying lower extremities not disturbed. SKIN: Warm and dry. Mucous membranes moist. HEAD: Normocephalic. EYES: No scleral icterus. No injection or drainage. NECK: Supple, trachea midline. No JVD or lymphadenopathy. CARDIOVASCULAR: Regular rate and rhythm without murmurs, gallops, or rubs. RESPIRATORY: Breath sounds equal bilaterally. No accessory muscle use. GASTROINTESTINAL: Abdomen soft, non-tender, nondistended. MUSCULOSKELETAL: No cyanosis, or edema. Wasting of the musculature. BACK: Nontender without obvious deformity. No CVA tenderness. Results - Lab Results 05/27/18 06:30 05/27/18 06:35 Most recent lab results Calcium 8.3 mg/dL (8.5-10.1) L 05/27/18 06:35 Assessment and Plan - Assessment (1) CKD (chronic kidney disease) stage 3, GFR 30-59 ml/min Code(s): N18.3 - Chronic kidney disease, stage 3 (moderate) Status: Acute Plan: Patient may well have chronic kidney disease related to diabetic nephropathy with superimposed nephrosclerosis of hypertension and aging. He did also have an episode of obstructive uropathy back in March so would like to exclude the possibility of recurrence. Renal ultrasound has been ordered. In view of anemia with renal insufficiency we will also screen for multiple myeloma. As far as placement of the PICC line is concerned the situation was reviewed with the patient. He may or may not progress to end-stage renal disease within his lifetime and if he does and requires hemodialysis and AV fistula will have to be created and placement of a PICC line will most likely reduce options as far as available veins are concerned for creation of same. Ideally I would like to avoid PICC line placement. I discussed the situation with the patient and he indicated to me that he would be willing to have a Damon catheter placed as an alternative venous access. In the interim evaluation of CKD as ordered as well as his anemia which may may not be related to anemia of renal disease. Would also recommend follow-up as an outpatient with a page makeup system operator if the patient agrees. Medications should be adjusted for the patient's estimated GFR if clinically indicated. Avoid agents with significant potential for nephrotoxicity possible including NSAIDs for analgesia, iodine contrast agents. Gadolinium is contraindicated if the GFR is below 30. (2) Anemia Code(s): D64.9 - Anemia, unspecified Status: Acute - Plan Anemia evaluation as ordered. If there is evidence of iron deficiency would recommend GI evaluation. Defer to primary in that regard.
[2018-05-28] MEDS: ceFAZolin 1 GM Premix Inj 1 GM/50 ML PIGGYBACK IV.SIG SCH (17:58)
[2018-05-28 19:43] LABS: % Iron Saturation 23.5 % (20-50)
--- NOTE | 2018-05-28 19:48 | US ---
EXAM DATE: 05/28/2018 7:40 PM EST AGE/SEX: 58 years / Male INDICATIONS: Increased lab values. CLINICAL DATA: This is the patient's initial encounter. Patient reports that signs and symptoms have been present for 1 day and indicates a pain score of 0/10. MEDICAL/SURGICAL HISTORY: Diabetes. CVA. Gullian [place] Syndrome. High cholesterol. Myocardial i nfarct. Toe amputation. CABG. COMPARISON: [facility] – [place] ABDOMEN & PELVIS W/O CONTRAST, 03/26/2018. . MEASUREMENTS: Right Kidney:__11.0 x 5.4 x 5.0 cm Left Kidney:__12.2 x 4.5 x 5.4 cm FINDINGS: Right Kidney: Right-sided hydronephrosis. No mass seen. Left Kidney: Left-sided hydronephrosis. No mass seen. Bladder: There is irregular diffuse bladder wall thickening. Mild distention of the urinary bladder. Other: None. CONCLUSION: 1. Bilateral hydronephrosis and irregular bladder wall thickening. Bladder outlet obstruction suspec hernan. Electronically signed by: Lester Marcano MD 05/28/2018 7:47 PM EST
[2018-05-28 19:57] LABS: Bilirubin,Urine Negative (Negative); Clarity,Urine Clear (Clear); Color,Urine Colorless (Yellw/Straw); Glucose,Urine (UA) 50 mg/dL (Negative); Leukocyte Esterase,Urine Negative (Negative); Nitrite,Urine Negative (Negative); Specific Gravity,Urine 1.006 (1.002-1.035); Squamous Epithelial Cell,Urine <1 /hpf (0-5)
[2018-05-28] MEDS ORDERED: Insulin Detemir Inj 1,000 UNIT/10 ML Vial SQ SCH (21:00)
[2018-05-28] MEDS: Insulin Detemir Inj 1,000 UNIT/10 ML Vial SQ SCH (21:23)
[2018-05-29] MEDS: Morphine Sulfate Inj 2 MG/ML Vial IV.PUSH PRN (00:59)
[2018-05-29] MEDS: ceFAZolin 1 GM Premix Inj 1 GM/50 ML PIGGYBACK IV.SIG SCH ×3 (01:00→17:22)
[2018-05-29 06:05] LABS: Albumin 2.3 g/dL (3.4-5.0); Calcium 8.2 mg/dL (8.5-10.1); Carbon Dioxide 25.4 meq/L (21.0-32.0); Potassium 3.8 meq/L (3.5-5.1)
[2018-05-29 06:07] LABS: Phosphorus 5.2 mg/dL (2.5-4.9)
[2018-05-29 07:06] LABS: Hepatitits B Surface Antigen Nonreactive (Nonreactive)
[2018-05-29] MEDS: Insulin NovoLOG Aspart Correctional Sugar Inj SQ SCH ×7 (07:40→21:35)
[2018-05-29] MEDS: Senna/Docusate Sodium 8.6/50 MG Tablet PO SCH ×2 (08:29→21:17)
[2018-05-29] MEDS: Collagenase Oint 30 GM Tube TOPICAL SCH (08:30)
[2018-05-29 09:24] LABS: Protein/Creatinine Ratio,Urine 1.58 (0.00-0.14); Total Protein,Urine Random 31.6 mg/dL (0-11.8)
--- NOTE | 2018-05-29 09:56 | P.DCO ---
Diagnosis (1) Osteomyelitis of left foot: Status: Acute (2) Osteomyelitis of right foot: Status: Acute (3) Chronic kidney disease (CKD) stage G3a/A1, moderately decreased glomerular filtration rate (GFR) between 45-59 mL/min/1.73 square meter and albuminuria creatinine ratio less than 30 mg/g: Status: Acute Home Health Nursing Order: Wound care and dressing changes and IV medication administration Instructions: Santyl applied to left heel and right foot wound with xerofoam, 4 x 4 and wrapped with dressing changes daily Case Management Consult Case Management Consult-Home Health: Yes I have seen patient Yobany Driscoll on 05/29/18. My clinical findings support the need for the requested home health care services because: Limited mobility due to disease progression and Infection with risk of complications I certify that my clinical findings support that this patient is homebound because: Non-ambulatory: confined to bed or chair _ (1) Osteomyelitis of left foot Qualifiers: Osteomyelitis type: (2) Osteomyelitis of right foot Qualifiers: Osteomyelitis type:
--- NOTE | 2018-05-29 10:11 | P.DS ---
DS: Providers Date of admission: 05/25/18 12:41 Primary care physician: UNKNOWN Consults: 05/25/18 11:50 Consult to Podiatry Routine Consulting Provider: Roldan Garcia Reason for Consultation: diabetic ulcers, possible osteo Notified:: Service Spoke with:: [place] Date Notified:: 05/25/18 Time Notified:: 12:51 Ordering Provider: CHELSEY 05/25/18 14:32 HUB Only Consult Order Routine Consulting Provider: Seth Ann 05/25/18 20:31 Consult to Vascular Surgery Routine Consulting Provider: Moustapha Mckay Preferred Movie Editor:: Moustapha Mckay Reason for Consultation: bilateral wounds/osteomyelitis Spoke with:: Added to List. Please call MD in AM Date Notified:: 05/25/18 Time Notified:: 20:35 Ordering Provider: RL 05/26/18 11:58 Consult to Infectious Diseases Routine Consulting Provider: Marito Aguilar Reason for Consultation: Osteomyelitis of Bilateral feet Notified:: Service Spoke with:: Calin Date Notified:: 05/26/18 Time Notified:: 12:04 Ordering Provider: DOMINIK 05/26/18 15:16 HUB Only Consult Order Routine Consulting Provider: Seth Ann 05/28/18 15:35 Consult to Nephrology Routine Consulting Provider: Margaux Beatty Does the patient have a Salon Professional who follows them?: No Preferred Nephrology Movie Editor:: Ginny Junior Reason for Consultation: PICC placement for CKD stage 3, improved renal function Notified:: Office Spoke with:: PHU Date Notified:: 05/28/18 Time Notified:: 15:48 Comments:: DR JUNIOR OFFICE SAID NO HE IS NOT CONSULTING GROUP ANALYST Ordering Provider: DOMINIK Brief History from admission: This a 58-year-old male with past medical history significant for type 2 diabetes, hypertension, Kinmundy Pickard syndrome, NM, and CVA multiple toe dissections, and foot ulcers. Presents the clinic today due to worsening ulcers on his feet bilaterally and his right foot is starting to drain purulent drainage. Because of this he decided to be evaluated. These wounds have been present for a very long time and he cannot give an exact timeline. He has chronic numbness in his feet bilaterally due to the diabetes. He also has residual left lower extremity weakness from his Guyon Pickard as well as some weakness in his hands bilaterally. DS: Diagnosis Discharge Diagnosis (1) Osteomyelitis of left foot: Status: Acute (2) Osteomyelitis of right foot: Status: Acute (3) Chronic kidney disease (CKD) stage G3a/A1, moderately decreased glomerular filtration rate (GFR) between 45-59 mL/min/1.73 square meter and albuminuria creatinine ratio less than 30 mg/g: Status: Acute (4) Guillain Pickard syndrome: Status: Acute (5) Decubitus ulcer of sacral region, stage 4: Status: Acute DS: Summary 58-year-old white male with a history of type 2 diabetes mellitus, chronic kidney disease stage III, hypertension, Cruz Pickard syndrome presents and admitted for bilateral foot ulcers with findings of bilateral foot osteomyelitis. He was initially placed on IV Zosyn and vancomycin during the hospital stay. Vascular surgeon was consulted along with podiatry. Vascular surgeon recommended no role for revascularization and future elective bilateral AKA. Wound cultures reveal Staphylococcus aureus and group D enterococcus, MRSA. Infectious disease, Dr. Aguilar recommended IV daptomycin through July 04 to complete treatment course. Dr. lópez, nephrology was consulted due to need for vascular access along with his chronic kidney disease stage III. He feels patient needs to continue to preserve his venous access and recommended Damon catheter. Radiology was consulted to place a Damon catheter today prior to transition home with home health care. Time Spent with Patient Total time spent providing and/or coordinating discharge services: Quality: VTE Deep Vein Thrombosis/Pulmonary Embolism Present on Admission: No Exam Narrative Exam Narrative: GENERAL: This is a well-nourished, well-developed patient, in no apparent distress. CARDIOVASCULAR: Regular rate and rhythm RESPIRATORY: Clear to auscultation. Breath sounds equal bilaterally. No wheezes , rales, or rhonchi. GASTROINTESTINAL: Abdomen soft, non-tender, nondistended. Normal active bowel sounds MUSCULOSKELETAL: Bandage on bilateral lower extremities NEURO: Alert & Oriented x4 to person, place, time, situation. Results Labs on day of discharge: Labs from last 24 hours 05/29/18 05/29/18 05/29/18 07:39 03:49 03:49 Sodium Potassium Chloride Carbon Dioxide Anion Gap BUN Creatinine Estimated GFR POC Glucose 102 Random Glucose Calcium Phosphorus Iron TIBC % Saturation Total Protein (PEP) Albumin Albumin (PEP) Albumin/Globulin Ratio [id number]-7-Pzsypiafk Yjcfr-7-Gapsyjfzm Beta Globulins Gamma Globulins PEP Pathologist Comment Vitamin D 25-Hydroxy Urine Color Urine Clarity Urine pH Ur Specific [place] Urine Protein Urine Glucose (UA) Urine Ketones Urine Occult Blood Urine Nitrate Urine Bilirubin Urine Urobilinogen Ur Leukocyte Esterase Urine RBC Urine WBC Ur Squamous Epith Cells Ur Microscopic Review Urine Eosinophils Ur Random Creatinine U Random Total Protein Protein/Creatinin Ratio Free [place] Light Chains Pending Free Lambda Light Chain Pending Free [place]/Lambda Ratio Pending Hep Bs Antigen Nonreactive Hep C IgG Ab Nonreactive 05/29/18 05/29/18 05/28/18 03:49 03:49 21:11 Sodium 141 Potassium 3.8 Chloride 104 Carbon Dioxide 25.4 Anion Gap 12 BUN 31 H Creatinine 1.26 Estimated GFR 59 L POC Glucose 193 H Random Glucose 88 Calcium 8.2 L Phosphorus 5.2 H Iron TIBC % Saturation Total Protein (PEP) 8.0 Albumin 2.3 L Albumin (PEP) Pending Albumin/Globulin Ratio Pending [id number]-[id number] Pending Jdawx-7-Rfudyjqzg Pending Beta Globulins Pending Gamma Globulins Pending PEP Pathologist Comment Pending Vitamin D 25-Hydroxy 23.1 L Urine Color Urine Clarity Urine pH Ur Specific [place] Urine Protein Urine Glucose (UA) Urine Ketones Urine Occult Blood Urine Nitrate Urine Bilirubin Urine Urobilinogen Ur Leukocyte Esterase Urine RBC Urine WBC Ur Squamous Epith Cells Ur Microscopic Review Urine Eosinophils Ur Random Creatinine U Random Total Protein Protein/Creatinin Ratio Free [place] Light Chains Free Lambda Light Chain Free [place]/Lambda Ratio Hep Bs Antigen Hep C IgG Ab 05/28/18 05/28/18 05/28/18 19:30 19:30 19:30 Sodium Potassium Chloride Carbon Dioxide Anion Gap BUN Creatinine Estimated GFR POC Glucose Random Glucose Calcium Phosphorus Iron TIBC % Saturation Total Protein (PEP) Albumin Albumin (PEP) Albumin/Globulin Ratio [id number] Kcnkw-9-Wbqjipzma Beta Globulins Gamma Globulins PEP Pathologist Comment Vitamin D 25-Hydroxy Urine Color Colorless Urine Clarity Clear Urine pH 6.0 Ur Specific [place] 1.006 Urine Protein Negative Urine Glucose (UA) 50 Urine Ketones Negative Urine Occult Blood Negative Urine Nitrate Negative Urine Bilirubin Negative Urine Urobilinogen Less than 2 Ur Leukocyte Esterase Negative Urine RBC 1 Urine WBC 2 Ur Squamous Epith Cells <1 Ur Microscopic Review Not Reportable Urine Eosinophils Pending Ur Random Creatinine 20 L U Random Total Protein 31.6 H Protein/Creatinin Ratio 1.58 H Free [place] Light Chains Free Lambda Light Chain Free [place]/Lambda Ratio Hep Bs Antigen Hep C IgG Ab 05/28/18 05/28/18 05/28/18 18:30 17:57 12:27 Sodium Potassium Chloride Carbon Dioxide Anion Gap BUN Creatinine Estimated GFR POC Glucose 172 H 226 H Random Glucose Calcium Phosphorus Iron 56 L TIBC 238 L % Saturation 23.5 Total Protein (PEP) Albumin Albumin (PEP) Albumin/Globulin Ratio Sxeqb-7-Qaokimysm Bqets-1-Cqglrveay Beta Globulins Gamma Globulins PEP Pathologist Comment Vitamin D 25-Hydroxy Urine Color Urine Clarity Urine pH Ur Specific [place] Urine Protein Urine Glucose (UA) Urine Ketones Urine Occult Blood Urine Nitrate Urine Bilirubin Urine Urobilinogen Ur Leukocyte Esterase Urine RBC Urine WBC Ur Squamous Epith Cells Ur Microscopic Review Urine Eosinophils Ur Random Creatinine U Random Total Protein Protein/Creatinin Ratio Free [place] Light Chains Free Lambda Light Chain Free [place]/Lambda Ratio Hep Bs Antigen Hep C IgG Ab Preliminary micro results at discharge 05/27/18 03:12 Wound Culture - Preliminary Wound - Foot Heavy growth normal skin sravan at 24 hours Impressions ITS Impressions Foot MRI 05/25/18 00:00 CONCLUSION: 1. Osteomyelitis of the calcaneus posteriorly with overlying ulceration and cellulitis. There is also abnormal signal at the plantar fascial and Achilles insertion sites, likely making these prone to rupture. Exam degraded by motion. Previous amputations as above. Foot X-Ray 05/25/18 09:48 CONCLUSION: Diffuse bone demineralization and ulceration of the soft tissues as above. Abdomen/Bladder Ultrasound 05/28/18 16:46 CONCLUSION: 1. Bilateral hydronephrosis and irregular bladder wall thickening. Bladder outlet obstruction suspected. Discharge Plan Discharge Disposition Patient Disposition: /Home Health Service Discharge Condition Condition: Stable Discharge Order Discharge Orders: Discharge Order (Routine); Ordered 05/29/18 Ordered By: Lu Jacques Vascular Surgery Clear for Discharge (Routine); Ordered 05/28/18 Ordered By: Moustapha Mckay Discharge Details Anticipated Discharge Date: 05/29/18 Discharge Comment: DC after Damon and outpatient IV abx arranged Physicians Team ED Provider: Rufina Corley Primary Care Provider: UNKNOWN, Attending Provider: Lu Jacques Other Providers: Roldan Garcia ; Hum[employer],Humana ; Moustapha Mckay ; Marito Aguilar ; Margaux Beatty Rxs /Orders / Referrals /Forms Prescriptions: New collagenase clostridium histo. [Santyl] 250 unit/gram Ointment 1 applicatio Topical DAILY Qty: 1 RF: 0 insulin detemir U-100 [Levemir U-100 Insulin] 100 unit/mL Solution 15 unit subcut HS 30 Days Qty: 4.5 RF: 0 insulin aspart U-100 [Novolog U-100 Insulin aspart] 100 unit/mL Solution 3 unit subcut TIDAC 30 Days Qty: 10 RF: 0 Continue morphine 30 mg Tablet 15 mg PO Q4-6H Qty: 0 RF: 0 Discontinued insulin aspart U-100 [Novolog U-100 Insulin aspart] 100 unit/mL Solution 15 unit SUBCUT BID RF: 0 Referrals: Roldan Garcia DPM [Physician] - 06/18/18 9:30 am ( Please call the physician's office to book the appointment to be seen within [ 2 to 3 weeks].) Moustapha Mckay MD [Physician] - 06/27/18 10:45 am (Your follow up appointment is scheduled on 06/27/18 at 10:45) UNKNOWN, [Primary Care Provider] - See Instructions (PLEASE CALL [facility] TO SCHEDULE APPT. [address] [facility] [id number] ) Post Discharge Care Plan Care Plan Goals: Your Health Problems: osteomyelitis Goals to Promote Your Health: * To prevent worsening of your condition * To maintain your health at the optimal level Directions to Meet Your Goals: * Take your medications as prescribed * Follow your dietary instruction * Follow activity as directed * Keep your appointments as scheduled * Take your immunizations and boosters as scheduled * If your symptoms worsen call your PCP * If no PCP go to Urgent Care or Emergency Room Smoking is dangerous to your health. Avoid second hand smoke. You may reach the 24-hour crisis hotline for domestic abuse at . Status ED Status: Left Department
[2018-05-29] MEDS: DAPTOMYCIN IV.SIG SCH (12:14)
[2018-05-29] MEDS: SODIUM CHLOR 0.9% IV.SIG SCH (12:14)
[2018-05-29 13:08] LABS: Activated Partial Thrombo Time 29.5 sec (23.4-31.7); Prothrombin Time 10.4 sec (9.8-11.6)
[2018-05-29] MEDS ORDERED: fentaNYL Citrate Inj 250 MCG/5 ML Ampul ONE (14:07)
[2018-05-29] MEDS ORDERED: Lidocaine 1%/Epinephrine 1:100,000 Inj 30 ML Vial ONE (14:10)
[2018-05-29] MEDS ORDERED: Heparin Central Flush 100 UNIT/ML 5 ML Vial IV.FLUSH ONE (14:10)
--- NOTE | 2018-05-29 14:39 | P.PNWCN ---
Wound Care Nurse Consult Description: Received pressure ulcer consult for sacral wound pressure ulcer Communicated with: MATT sahu and Doctor Georgie Recommendation: 1.Please cleanse coccyx stage 4 pressure injury with normal saline or wound cleanser and pat dry. 2. loosely pack wound to Maxorb extra Ag dressing cut into a strip 3. [place] periwound with skin barrier film 4. Cover with optifoam gentle 4x4 dressing. 5. Change every 2 days or as needed if saturated or dislodged. 6. Please turn and reposition patient from L side to R side while patient is laying in bed every 2 hours and PRN for comfort and offloading of pressure from luis antonio prominences. limit time spent on back to P.T. and meals. 7. Please follow up with out patient wound center for continued care Wound/Pressure Injury - Patient Status Premedicated for Pain Prior to Dressing Change: No - Wound Coccyx Wound Staging: Stage IV Wound Assessment: Ongoing Wound Type: Pressure Injury Is This a Chronic Wound: Yes Requested from Provider a Wound Care Consult: Yes (Wound care saw patient today) Length (cm): 1.6 Width (cm): 0.5 Depth (cm): 2.8 Wound Bed Appearance: Tunneling/Undermining (Tunneling is noted at 10 o'clock measuring 3.6cm and undermining is noted at 12 o'clock measuring 1.9cm) Wound Bed Appearance: Entire wound bed can't be visualized to due to size and depth of wound.Tissue that is visible in wound bed is 100% pink. Bone is palpated, but not visualized. Periwound presents with maceration. Surrounding Tissue Temperature: Cool Drainage Description: Serous Drainage Amount: Minimal Drainage Odor: No Odor Dressing Status: Changed Cleansing Solution: Saline Wound Packing Type: Alginate (maxorb II packed into wound bed, maxorb extra AG is not available on hand ) Cover Dressing: Optifoam gentle 4x4 Wound Dressing Change Date: 05/29/18 Wound Margin Description: Wound margins present with epibole from 1 o'clock to 3 o'clock. Maceration is also noted circumferentially. - Additional Information Patient seen on [address] [place] [address] for possible sacral pressure injury. Patient seen with Steffanie sahu and publicity writer. Patient is able to turn self without assistance toward the R side. Patient is wearing brief, brief was pulled down to expose wound. Wound is noted over the coccyx luis antonio prominence. Full wound measurements and description are noted above. Patient has had wound for a while and has [employer], wound care company treating wounds while he is at home. Patient is continent and uses bedside commode. Wound was cleansed with wound normal saline and patted dry. Maxorb II was cut in to strip and packed loosely to wound bed and covered with Optifoam gentle 4x4. Breif was pulled up. Patient tolerated well.
--- NOTE | 2018-05-29 14:58 | P.RAD ---
Post Procedure Progress Note - Pre Procedure Diagnosis (1) Osteomyelitis of left foot (2) Osteomyelitis of right foot - Post Procedure Diagnosis (1) Osteomyelitis of left foot (2) Osteomyelitis of right foot - Procedure Information Procedure Date: 05/29/18 Supervising Radiologist: Everton Sauer MD Estimated blood loss (mL): 0 Anesthesia: Local, Conscious Sedation - Plan of Activity Patient to Unit: ROPU Patient Condition: Fair Additional Comments: Right IJ dee catheter placed without difficulty. Catheter in good position OK for use See PACS Report for procedural detail/treatment.
--- NOTE | 2018-05-29 17:02 | P.DS ---
DS: Providers Date of admission: 05/25/18 12:41 Primary care physician: UNKNOWN Consults: 05/25/18 11:50 Consult to Podiatry Routine Consulting Provider: Roldan Garcia Reason for Consultation: diabetic ulcers, possible osteo Notified:: Service Spoke with:: [place] Date Notified:: 05/25/18 Time Notified:: 12:51 Ordering Provider: CHELSEY 05/25/18 14:32 HUB Only Consult Order Routine Consulting Provider: Seth Ann 05/25/18 20:31 Consult to Vascular Surgery Routine Consulting Provider: Moustapha Mckay Preferred Control Director:: Moustapha Mckay Reason for Consultation: bilateral wounds/osteomyelitis Spoke with:: Added to List. Please call MD in AM Date Notified:: 05/25/18 Time Notified:: 20:35 Ordering Provider: RL 05/26/18 11:58 Consult to Infectious Diseases Routine Consulting Provider: Marito Aguilar Reason for Consultation: Osteomyelitis of Bilateral feet Notified:: Service Spoke with:: Calin Date Notified:: 05/26/18 Time Notified:: 12:04 Ordering Provider: DOMINIK 05/26/18 15:16 HUB Only Consult Order Routine Consulting Provider: Seth Ann 05/28/18 15:35 Consult to Nephrology Routine Consulting Provider: Margaux Beatty Does the patient have a Vocational Services Specialist who follows them?: No Preferred Nephrology Control Director:: Ginny Junior Reason for Consultation: PICC placement for CKD stage 3, improved renal function Notified:: Office Spoke with:: PHU Date Notified:: 05/28/18 Time Notified:: 15:48 Comments:: DR JUNIOR OFFICE SAID NO HE IS NOT VOCATIONAL SERVICES SPECIALIST Ordering Provider: DOMINIK 05/29/18 14:01 Consult to Urology Routine Consulting Provider: Min Croft Reason for Consultation: bilateral hydronephrosis, hx of CKD stage 3 Notified:: Office Spoke with:: BRADY Date Notified:: 05/29/18 Time Notified:: 14:11 Ordering Provider: DOMINIK DS: Diagnosis Discharge Diagnosis (1) Osteomyelitis of left foot: Status: Acute (2) Osteomyelitis of right foot: Status: Acute (3) Chronic kidney disease (CKD) stage G3a/A1, moderately decreased glomerular filtration rate (GFR) between 45-59 mL/min/1.73 square meter and albuminuria creatinine ratio less than 30 mg/g: Status: Acute (4) Guillain Pickard syndrome: Status: Acute (5) Decubitus ulcer of sacral region, stage 4: Status: Acute DS: Summary 58-year-old white male with a past medical history for type 2 diabetes mellitus , hypertension, Thurston Pickard syndrome was admitted for bilateral foot ulcers and was found to have bilateral osteomyelitis of the right fifth metatarsal lateral aspect of the cuboid bone and left calcaneal osteomyelitis. Patient was placed on IV Zosyn and vancomycin per infectious disease recommendations. Podiatry also was consulted who recommended continue local wound care with Santyl dressings daily. Vascular surgeon consulted and recommended elective bilateral AKA in the future as there is no role for revascularization. Right wound cultures revealed Staphylococcus aureus and group D enterococcus along with MRSA. Infectious disease recommended daptomycin through July 04 and IV access was needed. Due to his chronic kidney disease stage III a nephrology consultation was placed for evaluation for IV access. Dr. Beatty recommended to preserve venous access and recommended a Damon catheter. Interventional radiology was consulted on May 29 and perform the procedure, Damon catheter placement. Renal ultrasound was done that showed bladder outlet obstruction with bilateral hydronephrosis. Urology consultation was placed and Dr. Perez recommended starting patient on Flomax with outpatient follow-up. Patient had a prehospital stage IV decubitus ulcer and wound care was consulted who recommended Maxorb extra AG packing every 2 days with Optifoam to the center with outpatient follow-up with wound care center. Patient has now gained maximum benefit from hospitalization is ready to be transition to home with home health care for continue IV antibiotics and local wound care. Time Spent with Patient Total time spent providing and/or coordinating discharge services: Greater than 30 minutes Quality: VTE Deep Vein Thrombosis/Pulmonary Embolism Present on Admission: No Results Labs on day of discharge: Labs from last 24 hours 05/29/18 05/29/18 05/29/18 11:58 11:11 07:39 PT 10.4 INR 1.0 APTT 29.5 Sodium Potassium Chloride Carbon Dioxide Anion Gap BUN Creatinine Estimated GFR POC Glucose 150 H 102 Random Glucose Calcium Phosphorus Iron TIBC % Saturation Total Protein (PEP) Albumin Albumin (PEP) Albumin/Globulin Ratio Mumqk-9-Iksiofebs Hckam-2-Mwmwfmjtb Beta Globulins Gamma Globulins PEP Pathologist Comment Vitamin D 25-Hydroxy Urine Color Urine Clarity Urine pH Ur Specific [place] Urine Protein Urine Glucose (UA) Urine Ketones Urine Occult Blood Urine Nitrate Urine Bilirubin Urine Urobilinogen Ur Leukocyte Esterase Urine RBC Urine WBC Ur Squamous Epith Cells Ur Microscopic Review Urine Eosinophils Ur Random Creatinine U Random Total Protein Protein/Creatinin Ratio Free [place] Light Chains Free Lambda Light Chain Free [place]/Lambda Ratio Hep Bs Antigen Hep C IgG Ab 05/29/18 05/29/18 05/29/18 03:49 03:49 03:49 PT INR APTT Sodium Potassium Chloride Carbon Dioxide Anion Gap BUN Creatinine Estimated GFR POC Glucose Random Glucose Calcium Phosphorus Iron TIBC % Saturation Total Protein (PEP) Albumin Albumin (PEP) Albumin/Globulin Ratio Naphs-1-Qkgduykdf Saeyp-2-Drbsbsdsp Beta Globulins Gamma Globulins PEP Pathologist Comment Vitamin D 25-Hydroxy 23.1 L Urine Color Urine Clarity Urine pH Ur Specific [place] Urine Protein Urine Glucose (UA) Urine Ketones Urine Occult Blood Urine Nitrate Urine Bilirubin Urine Urobilinogen Ur Leukocyte Esterase Urine RBC Urine WBC Ur Squamous Epith Cells Ur Microscopic Review Urine Eosinophils Ur Random Creatinine U Random Total Protein Protein/Creatinin Ratio Free [place] Light Chains Pending Free Lambda Light Chain Pending Free [place]/Lambda Ratio Pending Hep Bs Antigen Nonreactive Hep C IgG Ab Nonreactive 05/29/18 05/28/18 05/28/18 03:49 21:11 19:30 PT INR APTT Sodium 141 Potassium 3.8 Chloride 104 Carbon Dioxide 25.4 Anion Gap 12 BUN 31 H Creatinine 1.26 Estimated GFR 59 L POC Glucose 193 H Random Glucose 88 Calcium 8.2 L Phosphorus 5.2 H Iron TIBC % Saturation Total Protein (PEP) 8.0 Albumin 2.3 L Albumin (PEP) Pending Albumin/Globulin Ratio Pending Kjgcb-3-Fysfasetw Pending [place]-4-Prqfptpaj Pending Beta Globulins Pending Gamma Globulins Pending PEP Pathologist Comment Pending Vitamin D 25-Hydroxy Urine Color Urine Clarity Urine pH Ur Specific [place] Urine Protein Urine Glucose (UA) Urine Ketones Urine Occult Blood Urine Nitrate Urine Bilirubin Urine Urobilinogen Ur Leukocyte Esterase Urine RBC Urine WBC Ur Squamous Epith Cells Ur Microscopic Review Urine Eosinophils Pending Ur Random Creatinine U Random Total Protein Protein/Creatinin Ratio Free [place] Light Chains Free Lambda Light Chain Free [place]/Lambda Ratio Hep Bs Antigen Hep C IgG Ab 1105/28/18 05/28/18 19:30 19:30 18:30 PT INR APTT Sodium Potassium Chloride Carbon Dioxide Anion Gap BUN Creatinine Estimated GFR POC Glucose Random Glucose Calcium Phosphorus Iron 56 L TIBC 238 L % Saturation 23.5 Total Protein (PEP) Albumin Albumin (PEP) Albumin/Globulin Ratio Jmcqx-8-Aycpqhmxn Dmbnh-9-Uwlekzsen Beta Globulins Gamma Globulins PEP Pathologist Comment Vitamin D 25-Hydroxy Urine Color Colorless Urine Clarity Clear Urine pH 6.0 Ur Specific [place] 1.006 Urine Protein Negative Urine Glucose (UA) 50 Urine Ketones Negative Urine Occult Blood Negative Urine Nitrate Negative Urine Bilirubin Negative Urine Urobilinogen Less than 2 Ur Leukocyte Esterase Negative Urine RBC 1 Urine WBC 2 Ur Squamous Epith Cells <1 Ur Microscopic Review Not Reportable Urine Eosinophils Ur Random Creatinine 20 L U Random Total Protein 31.6 H Protein/Creatinin Ratio 1.58 H Free [place] Light Chains Free Lambda Light Chain Free [place]/Lambda Ratio Hep Bs Antigen Hep C IgG Ab 05/28/18 17:57 PT INR APTT Sodium Potassium Chloride Carbon Dioxide Anion Gap BUN Creatinine Estimated GFR POC Glucose 172 H Random Glucose Calcium Phosphorus Iron TIBC % Saturation Total Protein (PEP) Albumin Albumin (PEP) Albumin/Globulin Ratio Pujbp-1-Oeahzcbmk Hlivk-8-Lkijokgzl Beta Globulins Gamma Globulins PEP Pathologist Comment Vitamin D 25-Hydroxy Urine Color Urine Clarity Urine pH Ur Specific [place] Urine Protein Urine Glucose (UA) Urine Ketones Urine Occult Blood Urine Nitrate Urine Bilirubin Urine Urobilinogen Ur Leukocyte Esterase Urine RBC Urine WBC Ur Squamous Epith Cells Ur Microscopic Review Urine Eosinophils Ur Random Creatinine U Random Total Protein Protein/Creatinin Ratio Free [place] Light Chains Free Lambda Light Chain Free [place]/Lambda Ratio Hep Bs Antigen Hep C IgG Ab Preliminary micro results at discharge 05/27/18 03:12 Wound Culture - Preliminary Wound - Foot Yeast - ID to follow Impressions ITS Impressions Foot MRI 05/25/18 00:00 CONCLUSION: 1. Osteomyelitis of the calcaneus posteriorly with overlying ulceration and cellulitis. There is also abnormal signal at the plantar fascial and Achilles insertion sites, likely making these prone to rupture. Exam degraded by motion. Previous amputations as above. Foot X-Ray 05/25/18 09:48 CONCLUSION: Diffuse bone demineralization and ulceration of the soft tissues as above. Abdomen/Bladder Ultrasound 05/28/18 16:46 CONCLUSION: 1. Bilateral hydronephrosis and irregular bladder wall thickening. Bladder outlet obstruction suspected. Discharge Plan Discharge Disposition Patient Disposition: W/Home Health Service Discharge Condition Condition: Stable Discharge Order Discharge Orders: Discharge Order (Routine); Ordered 05/29/18 Ordered By: Lu Jacques Vascular Surgery Clear for Discharge (Routine); Ordered 05/28/18 Ordered By: Moustapha Mckay Discharge Details Anticipated Discharge Date: 05/29/18 Discharge Comment: DC after Damon and outpatient IV abx arranged and seen by urology Physicians Team Primary Care Provider: UNKNOWN, Attending Provider: Lu Jacques Other Providers: Roldan Garcia ; Seth Ann ; Moustapha Mckay ; Marito Aguilar ; Margaux Beatty ; Min Croft Rxs /Orders / Referrals /Forms Prescriptions: New collagenase clostridium histo. [Santyl] 250 unit/gram Ointment 1 applicatio Topical DAILY Qty: 1 RF: 0 insulin detemir U-100 [Levemir U-100 Insulin] 100 unit/mL Solution 15 unit subcut HS 30 Days Qty: 4.5 RF: 0 tamsulosin 0.4 mg Capsule 0.4 mg PO DAILY Qty: 30 RF: 0 insulin aspart U-100 [Novolog U-100 Insulin aspart] 100 unit/mL Solution 3 unit subcut TIDAC 30 Days Qty: 10 RF: 0 Continue morphine 30 mg Tablet 15 mg PO Q4-6H Qty: 0 RF: 0 Discontinued insulin aspart U-100 [Novolog U-100 Insulin aspart] 100 unit/mL Solution 15 unit SUBCUT BID RF: 0 Referrals: Min Croft MD [Physician] - See Instructions ( Please call the physician's office to book the appointment to be seen within [4 to 6 weeks].) Roldan Garcia DPM [Physician] - 06/18/18 9:30 am ( Please call the physician's office to book the appointment to be seen within [ 2 to 3 weeks].) Margaux Beatty MD [Physician] - See Instructions ( Please call the physician's office to book the appointment to be seen within [4 to 6 weeks].) Moustapha Mckay MD [Physician] - 06/27/18 10:45 am (Your follow up appointment is scheduled on 06/27/18 at 10:45) UNKNOWN, [Primary Care Provider] - See Instructions (PLEASE CALL [facility] TO SCHEDULE APPT. Robert [facility] [phone] ) Post Discharge Care Plan Care Plan Goals: Your Health Problems: osteomyelitis Goals to Promote Your Health: * To prevent worsening of your condition * To maintain your health at the optimal level Directions to Meet Your Goals: * Take your medications as prescribed * Follow your dietary instruction * Follow activity as directed * Keep your appointments as scheduled * Take your immunizations and boosters as scheduled * If your symptoms worsen call your PCP * If no PCP go to Urgent Care or Emergency Room Smoking is dangerous to your health. Avoid second hand smoke. You may reach the 24-hour crisis hotline for domestic abuse at . Status ED Status: Left Department
--- NOTE | 2018-05-29 17:17 | P.PNNP ---
Subjective Interval history: No complaints. Physical Exam Vital signs: Vital Signs 05/28/18 20:00 05/29/18 00:00 05/29/18 04:00 Temperature 98.0 F 98.3 F 98.7 F Pulse Rate 82 71 100 H Respiratory Rate 18 19 17 Blood Pressure 120/68 122/50 L 116/59 L Pulse Oximetry 99 100 100 05/29/18 08:00 05/29/18 12:00 05/29/18 15:30 Temperature 97.9 F 98.1 F Pulse Rate 76 76 103 H Respiratory Rate 20 20 20 Blood Pressure 105/76 128/61 148/68 H Pulse Oximetry 99 98 98 05/29/18 15:38 Temperature Pulse Rate 101 H Respiratory Rate 16 Blood Pressure 137/67 Pulse Oximetry 97 Intake & Output 05/28/18 05/29/18 05/29/18 18:59 06:59 18:59 Intake Total 1450 / 1450 50 / 50 390 / 390 Output Total 350 / 350 Balance 1450 / 1450 -300 / -300 390 / 390 Weight 57.5 kg 133.9 kg Intake: IV 250 / 250 50 / 50 150 / 150 Cubicin Inj 350 MG In NS Inj 100 / 100 100 / 100 100 ML @ 200 mls/hr IV.SIG Q24H NGOZI Rx#:[id number] Ancef 1 GM Premix Inj 1 gm In 50 / 50 50 / 50 50 / 50 50 ml @ 200 mls/hr IV.SIG Q8H NGOZI Rx#:[id number] Ancef Inj 1,000 MG In NS Inj 100 / 100 100 ML @ 200 mls/hr IV.SIG Q8H NGOZI Rx#:[id number] Oral 1200 / 1200 240 / 240 Output: Urine 350 / 350 Other: # Voids 5 1 # Bowel Movements 0 - Constitutional no acute distress - Routine HEENT Exam Head: Present: normocephalic - Routine Neck Exam Present: supple - Routine Respiratory Exam Present: CTA bilaterally - Routine Cardiovascular Exam Present: RRR, S1, S2 - Routine Abdominal Exam Present: soft - Routine Extremities Exam Absent: edema - Routine Skin Exam Present: intact - Routine Neurological Exam Present: alert, oriented X3 - Routine Psychiatric Exam Present: normal affect, normal thought process Assessment and Plan - Assessment (1) CKD (chronic kidney disease) stage 3, GFR 30-59 ml/min Code(s): N18.3 - Chronic kidney disease, stage 3 (moderate) Status: Acute Plan: Patient may well have chronic kidney disease related to diabetic nephropathy with superimposed nephrosclerosis of hypertension and aging. Also has underlying bilat obstruction for which urology is seeing---started on Flomax. Renal functions have improved. Was counselled of the importance of outpatient follow up with urology regarding obstruction. Damon placed today. MM panel pending. Was advise to follow up in office as outpatient and we can discuss additional screening labs that are pending. Cleared for discharge from renal standpoint. Medications should be adjusted for the patient's estimated GFR if clinically indicated. Avoid agents with significant potential for nephrotoxicity possible including NSAIDs for analgesia, iodine contrast agents. Gadolinium is contraindicated if the GFR is below 30. (2) Anemia Code(s): D64.9 - Anemia, unspecified Status: Acute - Plan Anemia evaluation as ordered. If there is evidence of iron deficiency would recommend GI evaluation. Defer to primary in that regard.
--- NOTE | 2018-05-29 17:31 | MB ---
cc: Min Croft MD DATE: 05/29/2018 REASON FOR CONSULTATION: 1. Bilateral hydronephrosis. 2. Incomplete bladder emptying. HISTORY OF PRESENT ILLNESS: The patient is a 58-year-old male with history of type 2 diabetes, Guillain-Dallas syndrome, who was admitted on 05/25/2018 with infected foot ulcers. During this admission, he was found to have a slightly elevated creatinine of up to 1.7 from 1.5. He does have a history of chronic kidney disease, stage III. Abdominal ultrasound was ordered by Nephrology and he was found to have mild hydroureteronephrosis. Urology was consulted for these findings. The patient was in [place] several months ago in March and had a Pandey catheter placed for urinary retention. It was subsequently removed, but he never did follow up with a urologist. The patient says ever since having Guillain-Dallas syndrome in 2010, he has had difficulty starting his stream, having to really strain and force his urine out. He has a very weak stream and he leaks urine daily, having to wear Depends. He also has to get up 4-5 times a night. He can feel when his bladder is full, but he does have difficulty emptying. Denies hematuria or dysuria. Denies urinary tract infections or history of kidney stones. He also has problems with constipation for the last couple of years as well. He also states that ever since being affected with Guillain-Dallas syndrome in 2010, he has numbness and tingling in his legs from the tips of his toes to his hip area. PAST MEDICAL HISTORY: Significant for Guillain-Dallas syndrome, diabetes, hypertension, history of CVA, [place], hyperlipidemia. PAST SURGICAL HISTORY: He has a history of coronary artery bypass graft. PAST SURGICAL HISTORY: Circumcision. FAMILY HISTORY: Denies urolithiasis or urinary malignancies. SOCIAL HISTORY: Current everyday smoker. Denies alcohol or illicit drugs. Currently not . HOME MEDICATIONS: Include: 1. [place]. 2. Insulin. 3. Lactulose. ALLERGIES: 1. OXYCODONE. 2. SODIUM BICARBONATE. REVIEW OF SYSTEMS: See HPI. All systems reviewed, otherwise are negative. PHYSICAL EXAMINATION: VITAL SIGNS: Temperature 98.1, pulse 101, respiratory rate 16, BP 130/67, saturating 90% on room air. GENERAL: He is alert and oriented x 3, no apparent pleasant gentleman who appears stated. HEENT: Head is normocephalic, atraumatic. Eyes: No scleral icterus. Extraocular muscles intact. External auditory hearing normal. NECK: Supple. Trachea is midline. No JVD. LUNGS: Clear to auscultation. No wheezes, rales, rhonchi. HEART: Regular rate and rhythm. No murmurs, rubs or gallops. ABDOMEN: Soft, nontender, nondistended, positive bowel sounds. GENITOURINARY: His penis is circumcised. Testes descended bilaterally, normal size, shape and consistency, without mass. RECTAL EXAM: Deferred at this time. EXTREMITIES: Nontender, no clubbing, cyanosis or edema. NEUROLOGIC: Cranial nerves 2-12 intact. Strength 5/5 in all 4 extremities. SKIN: No ulcers or rashes. Warm and moist. PSYCHIATRIC: Normal affect, answers questions appropriately. LABORATORY DATA: White count of 6.7, hemoglobin 10.3, hematocrit 28.8, platelet count 335. Sodium 141, potassium 3.9, chloride 104, bicarbonate 25.4, BUN 31, creatinine 1.26. Urinalysis completely negative. IMAGING STUDIES: Abdominal bladder ultrasound images reviewed. . The patient has mild bilateral hydronephrosis, but no evidence of stones or renal masses. ASSESSMENT: The patient is a 58-year-old male with history of diabetes and Guillain-Dallas syndrome, who presents with mild bilateral hydronephrosis and incomplete bladder emptying. PLAN: I will go ahead and start the patient on Flomax 0.4 mg daily to see this helps alleviate some of his obstructive symptoms. However, I suspect that this is more of a bladder issue due to residual effects from his Guillain-Dallas syndrome and he possibly has a neurogenic bladder. We will recommend a cystoscopy and urodynamics as outpatient once these acute issues resolve. 2. We will also check a postvoid residual to ensure that he is adequately emptying his bladder. As long as he is, there will be no need to place a Pandey catheter. Thank you for this consult. Please call if you have any questions. I am available as needed. MD KADIE Hammonds/marcus/jacob , 04:21 PM , 04:32 PM
[2018-05-29] MEDS: Insulin Detemir Inj 1,000 UNIT/10 ML Vial SQ SCH (21:36)
[2018-05-30] MEDS: ceFAZolin 1 GM Premix Inj 1 GM/50 ML PIGGYBACK IV.SIG SCH ×2 (02:21→09:56)
--- NOTE | 2018-05-30 07:35 | IR ---
EXAM DATE: 05/29/2018 3:31 PM EST AGE/SEX: 58 years / Male INDICATIONS: Patient presents with osteomyelitis in need of Damon catheter placement for medicatio n administration. CLINICAL DATA: This is the patient's initial encounter. Patient reports that signs and symptoms have been present for 4 - 6 days and indicates a pain score of 0/10. MEDICAL/SURGICAL HISTORY: . Bladder outlet obstruction, Myocardial infarction, CVA, Guillian Ba rre syndrome, Diabetes, High cholesterol, HTN. . History of CABG COMPARISON: No prior exams available for comparison. FLUORO TIME (min): 0.60 IMAGE SERIES: 2 SEDATION TIME (min): 30 MEDICATION(S): 2.5 mg midazolam (Versed) IV 150 mcg fentanyl (Sublimaze) IV DEVICE(S): Right 6.6fr single lumen Damon . . PROCEDURE: 1. Ultrasound-guided puncture of the prescribed vein. 2. Fluoroscopic guidance. 3. Damon catheter placement 4. Conscious sedation with continuous EKG and oximetry monitoring. The risks, benefits and alternatives to the procedure were explained and verbal and written consent w as obtained. The site was prepped in sterile fashion. Full sterile technique was used, including ca p, mask, sterile gloves and gown and a large sterile sheet. Hand hygiene and 2% chlorhexidine Betadi ne was utilized per protocol for cutaneous antisepsis with appropriate dry time for site. Sterile ge l and sterile probe cover were utilized for ultrasound guidance. The skin and subcutaneous tissues w ere infiltrated with local anesthetic solution. With ultrasound and fluoroscopic guidance a dermatotomy was created in the supraclavicular region. A micropuncture set was used to access to the right internal jugular vein and serial dilatation was pe rformed to accept a Damon catheter. A subcutaneous tunnel was created and in antegrade fashion the catheter was pulled through the tunnel, cut to the appropriate length and place through the sheath. The catheter was locked with heparin and sutured in place. Conscious sedation was performed with the prescribed dosages and duration as above in the presence of an independent trained radiology nurse to assist in the monitoring of the patient. EKG and oximetry remained stable throughout the procedure. The patient tolerated the procedure well and there were no complications. The patient was sent to post anesthesia recovery in stable condition. CONCLUSION: 1. Uncomplicated Damon catheter placement as above. Electronically signed by: Everton Sauer MD 05/30/2018 7:34 AM EST
[2018-05-30 08:57] VITALS: RESP 20
[2018-05-30] MEDS: Insulin NovoLOG Aspart Correctional Sugar Inj SQ SCH ×4 (09:08→11:45)
[2018-05-30] MEDS: Collagenase Oint 30 GM Tube TOPICAL SCH (09:09)
[2018-05-30] MEDS: Senna/Docusate Sodium 8.6/50 MG Tablet PO SCH (09:09)
--- NOTE | 2018-05-30 10:40 | P.PNIM ---
Subjective Interval history: Looking forward to going home. No other concerns at this time. Physical Exam Vital signs: Last Vital Signs Temp 98.5 F 05/30/18 08:00 Pulse 86 05/30/18 08:00 Resp 20 05/30/18 08:00 BP 103/56 L 05/30/18 08:00 Pulse Ox 100 05/30/18 08:00 Intake & Output 05/28/18 05/29/18 05/30/18 05/31/18 06:59 06:59 06:59 06:59 Intake Total 220 / 220 1500 / 1500 490 / 490 Output Total 350 / 350 Balance 220 / 220 1150 / 1150 490 / 490 Weight 57.5 kg 133.9 kg 59.9 kg Narrative: GENERAL: General examination reveals a somewhat frail-appearing gentleman, evidence of muscle wastage of all limbs. Patient not in respiratory distress. Dressing overlying lower extremities NECK: Supple, trachea midline. No JVD or lymphadenopathy. CARDIOVASCULAR: Regular rate and rhythm without murmurs, gallops, or rubs. RESPIRATORY: Breath sounds equal bilaterally. No accessory muscle use. GASTROINTESTINAL: Abdomen soft, non-tender, nondistended. Normoactive bowel sounds MUSCULOSKELETAL: No cyanosis, or edema. Wasting of the musculature. Results Labs CBC & Chem 7: 05/27/18 06:30 05/29/18 03:49 Labs: Microbiology 05/27/18 03:12 Wound - Foot Gram Stain - Final 05/27/18 03:12 Wound - Foot Wound Culture - Preliminary Yeast - ID to follow Imaging Imaging: Impressions Damon Line Insertion 05/29/18 00:00 CONCLUSION: 1. Uncomplicated Damon catheter placement as above. Assessment and Plan (1) Osteomyelitis of left foot: Code(s): M86.9 - Osteomyelitis, unspecified Status: Acute (2) Osteomyelitis of right foot: Code(s): M86.9 - Osteomyelitis, unspecified Status: Acute (3) Chronic kidney disease (CKD) stage G3a/A1, moderately decreased glomerular filtration rate (GFR) between 45-59 mL/min/1.73 square meter and albuminuria creatinine ratio less than 30 mg/g: Code(s): N18.3 - Chronic kidney disease, stage 3 (moderate) Status: Acute (4) Guillain Pickard syndrome: Code(s): G61.0 - Guillain-[place] syndrome Status: Acute (5) Decubitus ulcer of sacral region, stage 4: Code(s): L89.154 - Pressure ulcer of sacral region, stage 4 Status: Acute Plan This a 58-year-old male with past medical history significant for type 2 diabetes, hypertension, Holly Pickard syndrome, [place], and CVA multiple toe dissections, and foot ulcers. Being admitted due to the worsening bilateral foot ulcers. 1. Bilateral foot ulcers on the lateral aspect of his feet bilaterally right worse than left -Podiatry is currently following and has cleared for discharge. -MRI shows osteomyelitis in bilateral feet with right fifth metatarsal lateral aspect of cuboid bone and left calcaneal -Was on IV Zosyn and vancomycin per infectious disease, will transition to IV daptomycin upon discharge to home through July 04 -Wound care consulted Vascular surgeon recommended elective bilateral AKA as there is no role for revascularization Appreciate infectious disease recommendations and reviewed final wound cultures to determine course of antibiotics. Likely will need PICC line and outpatient IV antibiotics right foot wound showed group B beta strep, Streptococcus bovis group, MRSA, awaiting left heel wound cultures 2. Type 2 diabetes, uncontrolled, with likely diabetic nephropathy -Insulin sliding scale in place We will continue Levemir dosing and consideration to start preprandial insulin -Monitor glucose per protocol 3. Chronic pain. -[place] for pain -Morphine IV for breakthrough pain 4. 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 Continue physical therapy 5. Chronic kidney disease stage III -avoid nephrotoxins, monitor on IV antibiotics. Creatinine has been stable. Appreciate nephrology consultation for recommendation for a Damon catheter placement to preserve veins. He will follow-up with nephrology Dr. Beatty as an outpatient. Renal ultrasound showed bilateral hydronephrosis with bladder outlet obstruction. Urology Dr. blanton was consulted who recommended Flomax and outpatient follow-up. 6. DVT prophylaxis with SCDs heparin 7. Sacral decubitus stage IV, prehospitalization continue local wound care. Discharge Planning: Home with home health care when IV antibiotics is arranged. Progress Note: Quality VTE Deep Vein Thrombosis/Pulmonary Embolism Present on Admission: No _ (1) Osteomyelitis of left foot Qualifiers: Osteomyelitis type: (2) Osteomyelitis of right foot Qualifiers: Osteomyelitis type:
[2018-05-30] MEDS: SODIUM CHLOR 0.9% IV.SIG SCH (14:28)
[2018-05-30] MEDS: DAPTOMYCIN IV.SIG SCH (14:28)
[2018-05-30 16:42] VITALS: BP 147/92; PULSE 91; TEMP 98; O2SAT 99
[2018-06-01 17:53] LABS: Free Kappa/Lambda Light Chain 1.89 (0.26-1.65); Kappa Light Chain, Free 144.3 mg/L (3.3-19.4); Lambda Light Chain, Free 76.2 mg/L (5.7-26.3)
== END 2018-05-30 17:00 | disposition home health service (06) | DRG 637 ==
LOC: NEPE 09:12 → NEDA 12:41 → N05 15:50
PROVIDERS: ADMIT Family Medicine; ATTEND Family Medicine
DX: G89.29 Other chronic pain; E11.65 Type 2 diabetes mellitus with hyperglycemia; L97.519 Non-pressure chronic ulcer of other part of right foot with unspecified severity; F17.210 Nicotine dependence, cigarettes, uncomplicated; E78.5 Hyperlipidemia, unspecified; Z99.3 Dependence on wheelchair; E11.621 Type 2 diabetes mellitus with foot ulcer; D64.9 Anemia, unspecified; N13.30 Unspecified hydronephrosis; I25.2 Old myocardial infarction; Z95.1 Presence of aortocoronary bypass graft; I12.9 Hypertensive chronic kidney disease with stage 1 through stage 4 chronic kidney disease, or unspecified chronic kidney disease; M62.81 Muscle weakness (generalized); L97.529 Non-pressure chronic ulcer of other part of left foot with unspecified severity; L89.154 Pressure ulcer of sacral region, stage 4; E11.22 Type 2 diabetes mellitus with diabetic chronic kidney disease; G65.0 Sequelae of Guillain-Barre syndrome; N18.3 Chronic kidney disease, stage 3 (moderate); E46 Unspecified protein-calorie malnutrition; Z79.4 Long term (current) use of insulin; E11.69 Type 2 diabetes mellitus with other specified complication; Z68.20 Body mass index [BMI] 20.0-20.9, adult; Z86.73 Personal history of transient ischemic attack (TIA), and cerebral infarction without residual deficits; M86.8X7 Other osteomyelitis, ankle and foot; E11.21 Type 2 diabetes mellitus with diabetic nephropathy; Z89.429 Acquired absence of other toe(s), unspecified side
CPT/HCPCS: 36558; 73630; 73720; 75998; 76775; 76937; 77001; 80048; 80053; 80069; 81001; 82306; 82570; 82948; 82962; 83540; 83550; 83883; 84155; 84157; 84165; 85025; 85610; 85651; 85652; 85730; 86140; 86403; 86803; 87070; 87077; 87106; 87147; 87186; 87205; 87340; 90765; 90767; 96365; 96367; 97162; 99145; 99152; 99153; 99285; A9585; C1751; C1769; C1788; C1892; C1894; C9124; J0690; J0878; J1642; J1815; J2250; J2270; J2543; J3010; J3370; J7030; J7050